=== PATIENT | female | born 1950 | race Caucasian/White ===

== ENCOUNTER 2018-08-22 17:09 | Emergency (ER) | payer MEDICARE, OTHER, SELFPAY ==
[2018-08-22 17:09] VITALS: BP 169/89; PULSE 77; RESP 14; TEMP 36.8; O2SAT 98; BMI 40.2
[2018-08-22 18:31] LABS: Absolute Lymphocyte Count 2.29 X10^3/ul (0.83-4.51); Absolute Neutrophil Count 5.2 X10^3/uL (2.0-7.7); Basophil# 0.05 X10^3/uL; Basophil% 0.6 % (0-1); Eosinophil# 0.12 X10^3/uL; Eosinophils% 1.4 % (0-5); Hematocrit 42.2 % (37-47); Hemoglobin 13.3 g/dl (12.0-15.0); Lymphocyte # 2.29 X10^3/ul (4.0); Lymphocyte % 27.1 % (19-41); Mean Corp Hgb Conc 31.5 g/gl (32-36); Mean Corpuscular Hgb 28.5 pg (27.0-32.0); Mean Corpuscular Volume 90.6 fL (81-99); Mean Platelet Vol. 10.7 fl (6.2-12.0); Monocyte# 0.83 X10^3/uL; Monocyte% 9.8 % (0-10); Neutrophil # 5.16 X10^3/uL (2.7-7.7); Platelet Count 263 K/mm3 (150-450); RBC Distribution Width CV 13.6 % (11.6-14.6); RBC Distribution Width SD 44.5 fl (35.1-43.9); Red Blood Count 4.66 M/mm3 (4.2-5.4); White Blood Count 8.5 K/mm3 (4.4-11.0)
[2018-08-22 18:32] LABS: POSITIVE COUNT NO; POSITIVE DIFFERENTIAL NO; POSITIVE MORPHOLOGY NO
--- NOTE | 2018-08-22 18:35 | CT_ITS ---
STUDY: CT ABDOMEN AND PELVIS WITH CONTRAST REASON FOR EXAM: Female, 68 years old. Right lower quadrant pain. RADIATION DOSAGE (If Supplied By Facility): CTDIvol = ( 13.10 ) mGy, DLP = ( 1062.50 ) mGycm TECHNIQUE: Transaxial images were obtained from the dome of the diaphragm to the symphysis pubis without oral contrast. 100 ml of Isovue 300 contrast was administered. Sagittal and coronal images were reconstructed. Individualized dose optimization techniques were used for this CT. COMPARISON: August 02, 2017. FINDINGS: The visualized lung bases are unremarkable. The visualized portions of the heart are within normal limits. There are too small to characterize low-attenuation foci within the liver. There are surgical clips in the gallbladder fossa consistent with a prior cholecystectomy. Normal spleen. Normal pancreas. Normal bilateral adrenal glands. Normal right kidney. Normal left kidney. Normal visualized stomach. Normal small intestine. Normal colon. The appendix is surgically absent. There is diffuse atherosclerotic calcification of the abdominal aorta, without a demonstrated aneurysm. Normal inferior vena cava. Normal retroperitoneum. Normal urinary bladder. Normal abdominal wall. There are diffuse degenerative changes of the visualized lumbar spine. CT/Abdomen/Pelvis W IV Cont ONLY IMPRESSION: No acute intra-abdominal process. Degenerative changes. Atherosclerosis. Electronically Signed: Dipika Jones MD at 19:06 EDT Tel , Service support ,
[2018-08-22 18:49] LABS: AST(SGOT) 11 U/L (15-37); Alanine Aminotransfer ALT/SGPT 30 U/L (13-56); Albumin, Serum 3.7 g/dL (3.2-5.0); Alkaline Phosphatase 79 U/L (45-117); Anion Gap 5 (5-15); BUN 19 mg/dL (7-18); BUN/Creat Ratio 25.1 RATIO (10-20); Calcium,Total 8.6 mg/dL (8.5-10.1); Chloride 106 mmol/L (98-107); Creatinine, Serum 0.76 mg/dL (0.55-1.02); EST Glomerular Filtration Rate 81 mL/min (>60); Est Glom Filt Rate - Afr Amer 98 mL/min (>60); Estimated Creatinine Clearance 40.63 ml/min; Globulin 3.7 g/dL (2.2-4.2); Glucose 95 mg/dL (74-106); Lipase 94 U/L (73-393); Protein, Total 7.4 g/dL (6.4-8.2); Sodium Level 141 mmol/L (136-145)
[2018-08-22 18:50] LABS: Mucous, Urine 0 SEEN /hpf (<or=2+)
[2018-08-22 18:51] LABS: Color, Urine Yellow (Yellow); Glucose, Dipstick Normal (Normal); Ketone-Dipstick Negative (Negative); Leukocyte Esterase-Dipstick 500 /ul (Negative); Nitrite-Dipstick Negative (Negative); Occult Blood-Urine 25 /ul (Negative); Protein-Dipstick 15 mg/dl (Negative); Urine Bilirubin Dipstick Negative (Negative); Urine Clarity Sl. Cloudy (Clear); Urine Urobilinogen 1 mg/dl (Normal)
[2018-08-22 19:08] LABS: White Blood Cells 25-50 SEEN /hpf (0-5)
[2018-08-22 19:09] LABS: Amorphous Sediment 1+ URATE; Bacteria RARE /hpf (None Seen); Red Blood Cells-Urine 0-5 SEEN /hpf (0-5); Squamous Epithelial Cells - UA 5-10 SEEN /hpf (5-10)
[2018-08-22 20:41] VITALS: BP 149/82; PULSE 65; RESP 18; O2SAT 97
--- NOTE | 2018-08-22 20:41 | RAD_ITS ---
STUDY: X-RAY - RIGHT ELBOW REASON FOR EXAM: Female, 68 years old. Status post injection of IV contrast TECHNIQUE: AP view(s) of the elbow. COMPARISON: None. FINDINGS: Normal visualized humerus, radius and ulna. Normal radiocapitellar and ulnotrochlear articulations. There is intravenous contrast noted disseminated throughout the soft tissues of the lateral aspect of the elbow RAD/Elbow 2 Views IMPRESSION: Scattered IV contrast in the soft tissues of the lateral aspect of the elbow Electronically Signed: Jeremy Monzon MD at 21:15 EDT , Service support ,
--- NOTE | 2018-08-22 20:48 | ED.RN ---
PT C/O RAC BEING SWOLLEN,DENIES PAIN.PRESENTLY NO IV FLUIDS INFUSING, AWARE AND ORDERED X-RAY.
--- NOTE | 2018-08-22 21:03 | ED.DCSUM_ITS ---
- ER Visit Summary Date of Service: 08/22/18 Chief Complaint: Abdominal pain History of Present Illness: The patient is a 68 F who notes 3 weeks of intermittent gradually on setting right lower abdominal pain. Described as stabbing now getting worse particularly today. She states that her urine is more holt than normal. She states she feels bloated. No radiation of the pain. Is worse with sitting. She has a history of kidney stones and fibromyalgia. No fevers. She denies diarrhea or constipation. Patient has had prior appendectomy and complete hysterectomy Physical Examination: Afebrile vital signs stable Gen: Well-nourished well-developed Head: Normocephalic atraumatic Eyes: Perrl EOMI ENT: TMs clear no rhinorrhea moist mucous membranes Neck: Supple no lymphadenopathy no JVD nontender CVS: Regular rate rhythm no murmurs normal S1-S2 Respiratory: No distress clear to auscultation bilaterally chest nontender Abdomen: Soft tender to palpation with guarding in the right lower quadrant nondistended normal bowel sounds no masses Back: Nontender Extremity: Nontender no edema Skin: Normal color no rash Neuro: alert orientated ?3 CN II-XII intact normal strength sensation reflexes gait cerebellar Psych: Normal affect normal mood Test Results: CBC BMP are normal. Urinalysis negative for overt infection. 25- 50 white cells rare bacteria 0-5 red cells 5-10 epithelial cells Emergency Department Course and Treatment: CT the abdomen pelvis did not demonstrate any acute findings. Patient will be discharged home with follow-up return if worsening or concerns. The patient had infiltration of contrast in the right forearm. There was a question whether or not this was contrast versus IV solution. An x-ray was obtained which demonstrates contrast. Hospital contrast extravasation information given. Impression: 1. Acute abdominal pain 2. IV contrast extravasation into right forearm This note was generated with [facility] dictation software. It may contain incorrect words, spelling, and punctuation that were not noted in review of the chart prior to signing ED Disposition - Plan for ED Patient: Disposition: Home or Assisted Living Chief Complaint: Abd Pain Instructions: ED Abdominal Pain Unkn Cause Prescriptions: Magnesium Citrate [Citrate Of Magnesia] 300 ml PO X1 #3 bottle Referrals: Korey Ferguson III, MD [Primary Care Provider] - 2 Days (if still with symptoms )
[2018-08-22 21:37] VITALS: BP 148/60; PULSE 64; RESP 18; O2SAT 98
== END 2018-08-22 21:38 | disposition home or self-care (01) ==
PROVIDERS: Emergency Provider Emergency Medicine; Family Provider Family Medicine; PCP Family Medicine
DX: R10.31 Right lower quadrant pain (principal); M79.89 Other specified soft tissue disorders; M79.7 Fibromyalgia; T50.8X5A Adverse effect of diagnostic agents, initial encounter; Z79.899 Other long term (current) drug therapy
CPT/HCPCS: 73070; 74177; 80053; 81001; 83690; 85025; 99284; Q9967; A4216

== ENCOUNTER 2018-08-25 15:34 | Emergency (ER) | payer MEDICARE, OTHER, SELFPAY ==
[2018-08-25 15:35] VITALS: BP 165/85; PULSE 87; RESP 17; TEMP 36.2; O2SAT 98; BMI 41.5
--- NOTE | 2018-08-25 16:00 | ED.DCSUM_ITS ---
- ER Visit Summary Date of Service: 08/25/18 Chief Complaint: Abdominal pain History of Present Illness: The patient is a 68 F who was seen in this emergency department several days ago for the same. She has had right lower quadrant abdominal pain for 3 weeks. She is having irregular and less frequent bowel movements. She had a CT, laboratory studies, and a urinalysis per hour. She was prescribed magnesium citrate. She took 3 bottles of this since her discharge. She has been having bowel movements but continues to have right lower quadrant pain. No fevers. No other GI symptoms like nausea or vomiting. No diarrhea. No urinary symptoms. She has a history of appendectomy, cholecystectomy, and total hysterectomy. Physical Examination: Blood pressure 165/85. Otherwise vitals unremarkable. Patient is alert and oriented. Sitting and moving comfortably. Heart regular rate and rhythm. Lungs clear. Abdomen is tender in the right lower quadrant diffusely. No guarding or rebound. No flank or CVA tenderness. Skin appears normal. Normal sensation in her legs. Calves soft and supple. Test Results: Recheck laboratory studies and urinalysis pending. Emergency Department Course and Treatment: Patient was treated with fluids and a half dose of Toradol while awaiting results. She has an allergy to morphine and is driving. I reviewed her prior evaluation. Her CT was unremarkable. Her CBC was normal. CMP unremarkable. Lipase normal. Urine did show 5-10 white cells and rare bacteria. I sent a urine culture and we will treat with Keflex. I cannot find an indication to repeat her CT. Patient is following up with her physician tomorrow. I also advised her to follow-up with her GI doctor if she has continued symptoms. She may return at any time if she has new or worsening issues. Treatment Plan: As above Disposition: Discharged Impression: 1. Right lower quadrant abdominal pain This note was generated with [employer] dictation software. It may contain incorrect words, spelling, and punctuation that were not noted in review of the chart prior to signing ED Disposition - Plan for ED Patient: Chief Complaint: Constipation Referrals: Korey Ferguson III, MD [Primary Care Provider] -
[2018-08-25 16:09] VITALS: BP 158/70; PULSE 80; RESP 14; O2SAT 98
[2018-08-25 16:14] LABS: Absolute Lymphocyte Count 1.71 X10^3/ul (0.83-4.51); Absolute Neutrophil Count 7.1 X10^3/uL (2.0-7.7); Basophil# 0.04 X10^3/uL; Basophil% 0.4 % (0-1); Eosinophil# 0.06 X10^3/uL; Eosinophils% 0.6 % (0-5); Hematocrit 44.8 % (37-47); Hemoglobin 14.6 g/dl (12.0-15.0); Lymphocyte # 1.71 X10^3/ul (4.0); Lymphocyte % 17.5 % (19-41); Mean Corp Hgb Conc 32.6 g/gl (32-36); Mean Corpuscular Hgb 29.7 pg (27.0-32.0); Mean Corpuscular Volume 91.1 fL (81-99); Monocyte# 0.83 X10^3/uL; Monocyte% 8.5 % (0-10); Neutrophil % 72.9 % (47-70); Platelet Count 285 K/mm3 (150-450); RBC Distribution Width CV 13.6 % (11.6-14.6); RBC Distribution Width SD 44.8 fl (35.1-43.9); Red Blood Count 4.92 M/mm3 (4.2-5.4); White Blood Count 9.8 K/mm3 (4.4-11.0)
[2018-08-25 16:18] LABS: POSITIVE COUNT NO; POSITIVE DIFFERENTIAL NO; POSITIVE MORPHOLOGY NO
[2018-08-25] MEDS: 0.9% Normal Saline 1,000 ML 1000 ML IV (16:22)
[2018-08-25] MEDS: Ketorolac 30 MG/ML Syringe 15 MG IV (16:22)
[2018-08-25 16:41] LABS: Color, Urine Yellow (Yellow); Glucose, Dipstick Normal (Normal); Ketone-Dipstick Negative (Negative); Leukocyte Esterase-Dipstick Negative /ul (Negative); Nitrite-Dipstick Negative (Negative); Occult Blood-Urine 10 /ul (Negative); Protein-Dipstick Negative (Negative); Specific Gravity, Urine 1.015 (1.002-1.030); Urine Bilirubin Dipstick Negative (Negative); Urine Clarity Clear (Clear); Urine Urobilinogen Normal (Normal)
[2018-08-25 16:44] LABS: AST(SGOT) 13 U/L (15-37); Alanine Aminotransfer ALT/SGPT 30 U/L (13-56); Albumin, Serum 3.6 g/dL (3.2-5.0); Alkaline Phosphatase 78 U/L (45-117); Anion Gap 6 (5-15); BUN 20 mg/dL (7-18); BUN/Creat Ratio 22.2 RATIO (10-20); Calcium,Total 8.5 mg/dL (8.5-10.1); Chloride 110 mmol/L (98-107); EST Glomerular Filtration Rate 66 mL/min (>60); Est Glom Filt Rate - Afr Amer 80 mL/min (>60); Estimated Creatinine Clearance 42.97 ml/min; Globulin 3.6 g/dL (2.2-4.2); Glucose 131 mg/dL (74-106); Lipase 87 U/L (73-393); Potassium 3.5 mmol/L (3.5-5.1); Protein, Total 7.2 g/dL (6.4-8.2); Sodium Level 145 mmol/L (136-145)
[2018-08-25 16:54] LABS: Bacteria RARE /hpf (None Seen); Mucous, Urine 1+ /hpf (<or=2+); Red Blood Cells-Urine 0-5 SEEN /hpf (0-5); Squamous Epithelial Cells - UA 0-5 SEEN /hpf (5-10); White Blood Cells 5-10 SEEN /hpf (0-5)
--- NOTE | 2018-08-25 17:25 | ED.DEP ---
ED Disposition - Plan for ED Patient: Chief Complaint: Constipation Instructions: ED Abdominal Pain Unkn Cause Prescriptions: Cephalexin [Keflex] 500 mg PO Q6 #28 cap Referrals: Korey Ferguson III, MD [Primary Care Provider] -
[2018-08-25] MEDS: Cephalexin 250 MG Capsule 500 MG PO (17:38)
[2018-08-25 17:39] VITALS: BP 150/78; PULSE 85; RESP 14; O2SAT 98
== END 2018-08-25 17:39 | disposition home or self-care (01) ==
LOC: ED 16:21
PROVIDERS: Emergency Provider Emergency Medicine; Family Provider Family Medicine; PCP Family Medicine
DX: R10.31 Right lower quadrant pain (principal); Z90.49 Acquired absence of other specified parts of digestive tract; Z90.710 Acquired absence of both cervix and uterus
CPT/HCPCS: 80053; 81001; 83690; 85025; 87077; 87086; 87088; 87186; 96361; 96374; 99284; J7030

== ENCOUNTER 2018-11-08 18:47 | Emergency (ER) | payer MEDICARE, OTHER, SELFPAY ==
[2018-11-08 18:48] VITALS: BP 153/80; PULSE 80; RESP 22; TEMP 36.8; O2SAT 98; BMI 38.6
--- NOTE | 2018-11-08 19:00 | ED.VISSUMM ---
- ER Visit Summary Date of Service: 11/08/18 Chief Complaint: Fall, right hip pain History of Present Illness: The patient is a 68 F [presents to the emergency department after mechanical fall. The patient was in her normal state of health. She was walking outdoors last night. She slipped when she was trying feed her dogs. She landed with her right hip on a cement paper. She did not strike her head. She denies loss of consciousness. Throughout the day, she had worsening pain in the hip and difficulty ambulating. She has still been able to walk on it. She has not on anticoagulants. Physical Examination: Vital signs reviewed General: Well-nourished, well-developed Head: Normocephalic, atraumatic Eyes: Pupils equal and reactive, extraocular muscles intact Neck, supple, no lymphadenopathy Heart: Regular rate and rhythm Respiratory: No distress, clear bilaterally Abdomen: Soft, nontender, nondistended, no peritoneal signs Back: Nontender Extremities: Nontender, no edema, no cords Skin: Normal color no rash Neuro: Alert and oriented, no focal or lateralizing deficits Test Results: [] Emergency Department Course and Treatment: I did obtain plain films of the patient's hip. There is no evidence of acute fracture or dislocation. Her pain is controlled. She is able to ambulate. At this time, I do feel the patient is safe for discharge. She declined any analgesics for home. She will continue anti-inflammatories. She will return with any worsening symptoms. Treatment Plan: Discharge Disposition: [] Impression: 1. Right hip contusion status post fall This note was generated with [employer] dictation software. It may contain incorrect words, spelling, and punctuation that were not noted in review of the chart prior to signing ED Disposition - Plan for ED Patient: Chief Complaint: Fall Instructions: ED Contusion Hip Referrals: Korey Ferguson III, MD [Primary Care Provider] -
[2018-11-08] MEDS: oxyCODONE 5 MG Tablet PO (19:04)
--- NOTE | 2018-11-08 19:10 | RAD_ITS ---
HISTORY: fall yesterday, right hip pain COMPARISON: CT abdomen pelvis 08/22/18. FINDINGS: # of images incl. paperwork: 3 XR Hip Unilateral with Pelvis when performed; 2-3 Views: Frontal pelvis 2 views right hip. SOFT TISSUES: Unremarkable. No radiopaque foreign body. BONES: No acute fracture or subluxation. No sclerotic or destructive changes observed. JOINTS: Degenerative changes are noted. RAD/HIP, UNI W/ Pelvis 2-3 Views IMPRESSION: Degenerative changes. No acute fracture or dislocation. at 2010 Reported and signed by: Everett Cardenas MD Electronically Signed: Everett Cardenas, at 20:09 EST Tel , Service support ,
[2018-11-08 20:29] VITALS: BP 160/81; PULSE 78; RESP 15; O2SAT 97
--- OUTSIDE RECORDS SUMMARY | 2019-01-13 08:24 | XMS RPT_ITS ---
:1950 Author Organization OHIP Care Team Providers Name Role Phone KOREY FERGUSON III Attending Unavailable CEBUL III, KOREY A Referring Unavailable CEBUL III, KOREY A Referring Unavailable CEBUL III, KOREY A Attending Unavailable CEBUL III, KOREY A Attending Unavailable CEBUL III, KOREY A Referring Unavailable TESTRAKELAURYN Attending Unavailable CEBUL III, KOREY A Referring Unavailable CEBUL III, KOREY A Referring Unavailable CEBUL III, KOREY A Referring Unavailable CEBUL III, KOREY A Referring Unavailable CEBUL III, KOREY A Attending Unavailable CEBUL III, KOREY A Referring Unavailable TESTRAKELAURYN Attending Unavailable TESTRAKE, LAURYN Referring Unavailable CEBUL III, KOREY A Attending Unavailable Cebul III, Korey Primary Care Unavailable Alirio Mcdonald Attending Unavailable Cebul III, Korey Primary Care Unavailable Casey Vargas Attending Unavailable Korey Ferguson III Primary Care Unavailable Casey Ronquillo Attending Unavailable PROBLEMS PROBLEMS DATE TYPE CONDITION / CODE ATTENDING STATUS SOURCE 05/01/2018 Active Hypokalemia / NA Active [facility] E87.6(ICD-10) [facility] [place] Repository 05/01/2018 Active Encounter for NA Active [facility] screening [facility] [place] mammogram for Repository malignant neoplasm of breast / Z12.31(ICD-10) 04/26/2016 Active Hyperlipidemia, NA Active [facility] unspecified / [facility] [place] E78.5(ICD-10) Repository 02/27/2011 Active Impaired fasting NA Active [facility] glucose / [facility] [place] R73.01(ICD-10) Repository 11/27/2017 Active Epigastric pain / NA Active [facility] R10.13(ICD-10) [facility] [place] Repository PROCEDURES PROCEDURES No Procedure Records FoundRESULTS RESULTS EMERGENCY DEPARTMENT Observed: 11/08/2018 Status: F Source: [place] SUMMARY 8:22 PM [facility] REPOSITORY [facility] Medical Records Department [address] [place] [address] Emergency Department Summary 11/08/18 1900 MR#: [id number] Acct: [id number] Name: SHERIDAN ZHENG Rep #: [id number] : 1950 68 From: Alirio Mcdonald MD PCP: Korey Ferguson III, MD Status: REG ER - ER Visit Summary Date of Service: 11/08/18 Chief Complaint: Fall, right hip pain History of Present Illness: The patient is a 68 F [presents to the emergency department after mechanical fall. The patient was in her normal state of health. She was walking outdoors last night. She slipped when she was trying feed her dogs. She landed with her right hip on a cement paper. She did not strike her head. She denies loss of consciousness. Throughout the day, she had worsening pain in the hip and difficulty ambulating. She has still been able to walk on it. She has not on anticoagulants. Physical Examination: Vital signs reviewed General: Well-nourished, well-developed Head: Normocephalic, atraumatic Eyes: Pupils equal and reactive, extraocular muscles intact Neck, supple, no lymphadenopathy Heart: Regular rate and rhythm Respiratory: No distress, clear bilaterally Abdomen: Soft, nontender, nondistended, no peritoneal signs Back: Nontender Extremities: Nontender, no edema, no cords Skin: Normal color no rash Neuro: Alert and oriented, no focal or lateralizing deficits Test Results: [] Emergency Department Course and Treatment: I did obtain plain films of the patient's hip. There is no evidence of acute fracture or dislocation. Her pain is controlled. She is able to ambulate. At this time, I do feel the patient is safe for discharge. She declined any analgesics for home. She will continue anti-inflammatories. She will return with any worsening symptoms. Treatment Plan: Discharge Disposition: [] Impression: 1. Right hip contusion status post fall This note was generated with DAQRIation software. It may contain incorrect words, spelling, and punctuation that were not noted in review of the chart prior to signing ED Disposition - Plan for ED Patient: Chief Complaint: Fall Instructions: ED Contusion Hip Referrals: Korey Ferguson III, MD [Primary Care Provider] - What to do if you have Problems For any increased pain, shortness of breath, bleeding, nausea or vomiting, chest pain, or any unexpected problems, contact your Primary Care Provider. Call Results [facility] ([phone]) or report to the closest Emergency Room. Call 911 if necessary. 11/08/182021 <Electronically signed by Alirio Mcdonald MD> Date Alirio Mcdonald MD Cosigner Signature (If Indicated): Date CC: Korey Ferguson III, MD HIP, UNI W/ PELVIS Observed: 11/08/2018 Status: F Source: [place] 2-3 VIEWS 6:56 PM [facility] REPOSITORY [facility] Imaging Services [place] [address] [address] HIP, UNI W/ Pelvis 2-3 Views MR#: [id number] Acct: [id number] Name: SHERIDAN ZHENG Lamar Rep #: [id number] : 1950 F 68 From: Everett Cardenas MD PCP: Korey Ferguson III, MD Status: REG ER Study: HIP, UNI W/ Pelvis 2-3 Views Date of Exam: 11/08/18 Exam# [id number] Ordering Dr: Alirio Mcdonald MD HISTORY: fall yesterday, right hip pain COMPARISON: CT abdomen pelvis 08/22/18. FINDINGS: # of images incl. paperwork: 3 XR Hip Unilateral with Pelvis when performed; 2-3 Views: Frontal pelvis 2 views right hip. SOFT TISSUES: Unremarkable. No radiopaque foreign body. BONES: No acute fracture or subluxation. No sclerotic or destructive changes observed. JOINTS: Degenerative changes are noted. RAD/HIP, UNI W/ Pelvis 2-3 Views IMPRESSION: Degenerative changes. No acute fracture or dislocation. at 2010 Reported and signed by: Everett Cardenas MD Electronically Signed: Everett Cardenas, at 20:09 EST Tel , Service support , CC: Korey Ferguson III, MD; Alriio Mcdonald MD Agriscience Teacher: Signed PROGRESS Observed: 08/29/2018 Status: COMPLETED Source: [place] 5:18 PM [facility] REPOSITORY HNO ID: [id number] Author: Korey Ferguson III Service: (none) Author Type: Physician Type: Progress Notes Filed: 08/29/2018 7:05 PM Note Text: SUBJECTIVE: This is a 68 year old female that is here today for ER Follow Up. 08/22/18. And 08/25/18. ER records reviewed. 3 wk hx of R side pain, got worse and she went to ER. CBC normal. CT abd/pelvis neg, but the IV contrast dye extravasted in the subcutaneous space R forearm. She was given antibiotic for suspected UTI but she did not have any dysuria. She was referred to urology with normal diagnosis. She continues to have pain R side of abd which she has had without change management the last several months. She has already had previous cholecystectomy, umbilical hernia repair, appendectomy, CALEB, BSO. She has not had any change in appetite or bowel movements. No fever or malaise. 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 Because of her short stature she has to stretch with her right leg to suppress a foot pedal at work repeatedly. She does note that this causes increasing pain in the right lower abdomen and right anterior thigh. PAST MEDICAL HISTORY Diagnosis Date - Backache, unspecified - Hyperlipidemia 02/27/2011 - Hyperlipidemia LDL goal <100 04/26/2016 - Impaired fasting glucose 02/27/2011 - Myalgia and myositis, unspecified - Overactive bladder - Personal history of urinary calculi - Pure hypercholesterolemia - Vestibular neuritis Current Outpatient Prescriptions on File Prior to Visit: DULoxetine (CYMBALTA) 60 mg capsule Take 1 capsule by mouth once daily. Hydrochlorothiazide 12.5 mg capsule Take one tablet every other day as needed for edema albuterol HFA (PROAIR HFA) 90 mcg/actuation inhaler Inhale 2 Puffs as instructed every 6 hours as needed. Flurbiprofen 100 mg tablet Take 1 tablet by mouth twice daily. omeprazole (PRILOSEC) 20 mg capsule Take 1 capsule by mouth daily before breakfast. 1/2 hr before meal. No current facility-administered medications on file prior to visit. FAMILY HISTORY Problem Relation Age of Onset - Stroke Mother - Breast Cancer Mother - Heart Father - Thyroid Maternal Aunt - Hypertension Sister - Heart Paternal Grandmother - Cancer Paternal Grandfather Stomach - Coronary Artery Disease Maternal Grandfather - Breast Cancer Sister - Heart Brother Social History Substance Use Topics - Smoking status: Never Smoker - Smokeless tobacco: Never Used - Alcohol use No BP 139/78 Pulse 70 Resp 18 Wt 94.8 kg (209 lb) BMI 39.49 kg/m? OBJECTIVE: APPEARANCE Well appearing, alert, in no acute distress, well-hydrated, well nourished. and Obese ABDOMEN bowel sounds normoactive, no bruits, soft, non-tender, non-distended, without organomegaly or palpable masses, tenderness in the right lower abdomen without rigidity, rebound, mass. No hepatosplenomegaly. No tenderness in any of the other quadrants. No CVA tenderness bilaterally. No tenderness in the right groin or right anterior thigh muscle. Straight leg raising does not cause any increase in the pain. No tenderness or obvious hernia around the umbilicus. EXTREMITIES no swelling or tenderness of the lower extremities. No evidence of extravasation or tenderness in the right forearm. No increased warmth or erythema of the right forearm. ASSESSMENT: strain right lower abd muscle extravasation of CT scan dye right forearm?resolved without obvious complication PLAN: stretch right lower abdominal muscles 2-3 times/day--remember to keep chin up. Exercises were demonstrated may use tylenol or ibuprofen as needed for pain same other medications flu shot given Hospital records were reviewed JOSH Herrera MD, III MD PROGRESS Observed: 08/29/2018 Status: COMPLETED Source: [place] 5:12 PM [facility] REPOSITORY O ID: [id number] Author: Samira (Patricia) MADDY Ross Service: (none) Author Type: Customer Service Analyst Type: Progress Notes Filed: 08/29/2018 7:05 PM Note Text: 68 year old female here for INACTIVATED INFLUENZA VACCINE. 5278-4886 Season Patient is identified by name and date of : Yes [] CONTRAINDICATIONS color enhanced section Age less than 6 months? No Allergy to eggs, chicken, chicken feathers, or chicken dander? No Allergy to thimerosal (a preservative) or formaldehyde, gelatin? No History of severe reaction to any vaccine component or a previous dose of influenza vaccination? No History of Guillain-Havelock Syndrome within 6 weeks after a previous influenza vaccine? No Patient is not moderately or severely ill? No Current temperature greater or equal to 100.4F? No History of Bone Marrow Transplant prior 6 months or solid organ transplant in the past 3 months ? No History of fainting after a prior injection or medical procedure? No- ? If patient has fainted in the past, the CDC recommends sitting or lying down for 15 minutes after the vaccination. [] VERIFICATION color enhanced section Was the answer Yes for any of the above contraindications? No contraindications present. Acceptable to proceed with vaccine. Patient/guardian agrees the above answers are true to the best of their knowledge? Yes Flu vaccine information sheet given? Yes See immunization activity in [facility] for details of immunizations adminstered today. Patient age: [age] year old For The 7448-2273 Flu Season 6-35 months old: Fluzone 0.25 ml - IM (Preservative Free) 3 years of age: Fluzone 0.5 ml - IM (Preservative Free) 3 years and older: Fluzone 0.5 ml- IM-(with Preservatives) 65+ years old: 2-49 years old Fluzone High-Dose 0.5 ml - IM (Preservative Free) FLUMIST- intranasal REMEMBER: If patient is less than 9 years of age and this is the first vaccine of Influenza to be received in any flu season, they should receive a second dose in one months time. CNOV Observed: 08/29/2018 Status: COMPLETED Source: [place] 4:40 PM [facility] REPOSITORY Office Visit (FAMPWS) SHERIDAN ZHENG ([id number]) 1950 F NFR Date Time Provider Department 08/29/18 4:40 PM [facility] During your visit today, we recorded the following information about you: Pulse Respiration Blood pressure Weight 70/minute 18/minute 139/78 94.8 kg Samira Ross CMA, MA 08/29/2018 7:05 PM Signed 68 year old female here for INACTIVATED INFLUENZA VACCINE. Season Patient is identified by name and date of : Yes [] CONTRAINDICATIONS color enhanced section Age less than 6 months? No Allergy to eggs, chicken, chicken feathers, or chicken dander? No Allergy to thimerosal (a preservative) or formaldehyde, gelatin? No History of severe reaction to any vaccine component or a previous dose of influenza vaccination? No History of Guillain-Havelock Syndrome within 6 weeks after a previous influenza vaccine? No Patient is not moderately or severely ill? No Current temperature greater or equal to 100.4F? No History of Bone Marrow Transplant prior 6 months or solid organ transplant in the past 3 months ? No History of fainting after a prior injection or medical procedure? No- ? If patient has fainted in the past, the CDC recommends sitting or lying down for 15 minutes after the vaccination. [] VERIFICATION color enhanced section Was the answer Yes for any of the above contraindications? No contraindications present. Acceptable to proceed with vaccine. Patient/guardian agrees the above answers are true to the best of their knowledge? Yes Flu vaccine information sheet given? Yes See immunization activity in [facility] for details of immunizations adminstered today. Patient age: [age] year old For The 3808-5010 Flu Season 6-35 months old: Fluzone 0.25 ml - IM (Preservative Free) 3 years of age: Fluzone 0.5 ml - IM (Preservative Free) 3 years and older: Fluzone 0.5 ml- IM-(with Preservatives) 65+ years old: 2-49 years old Fluzone High-Dose 0.5 ml - IM (Preservative Free) FLUMIST- intranasal REMEMBER: If patient is less than 9 years of age and this is the first vaccine of Influenza to be received in any flu season, they should receive a second dose in one months time. Korey Ferguson III MD 08/29/2018 7:05 PM Signed SUBJECTIVE: This is a 68 year old female that is here today for ER Follow Up. 08/22/18. And 08/25/18. ER records reviewed. 3 wk hx of R side pain, got worse and she went to ER. CBC normal. CT abd/pelvis neg, but the IV contrast dye extravasted in the subcutaneous space R forearm. She was given antibiotic for suspected UTI but she did not have any dysuria. She was referred to urology with normal diagnosis. She continues to have pain R side of abd which she has had without change management the last several months. She has already had previous cholecystectomy, umbilical hernia repair, appendectomy, CALEB, BSO. She has not had any change in appetite or bowel movements. No fever or malaise. 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 Because of her short stature she has to stretch with her right leg to suppress a foot pedal at work repeatedly. She does note that this causes increasing pain in the right lower abdomen and right anterior thigh. PAST MEDICAL HISTORY Diagnosis Date - Backache, unspecified - Hyperlipidemia 02/27/2011 - Hyperlipidemia LDL goal <100 04/26/2016 - Impaired fasting glucose 02/27/2011 - Myalgia and myositis, unspecified - Overactive bladder - Personal history of urinary calculi - Pure hypercholesterolemia - Vestibular neuritis Current Outpatient Prescriptions on File Prior to Visit: DULoxetine (CYMBALTA) 60 mg capsule Take 1 capsule by mouth once daily. Hydrochlorothiazide 12.5 mg capsule Take one tablet every other day as needed for edema albuterol HFA (PROAIR HFA) 90 mcg/actuation inhaler Inhale 2 Puffs as instructed every 6 hours as needed. Flurbiprofen 100 mg tablet Take 1 tablet by mouth twice daily. omeprazole (PRILOSEC) 20 mg capsule Take 1 capsule by mouth daily before breakfast. 1/2 hr before meal. No current facility-administered medications on file prior to visit. FAMILY HISTORY Problem Relation Age of Onset - Stroke Mother - Breast Cancer Mother - Heart Father - Thyroid Maternal Aunt - Hypertension Sister - Heart Paternal Grandmother - Cancer Paternal Grandfather Stomach - Coronary Artery Disease Maternal Grandfather - Breast Cancer Sister - Heart Brother Social History Substance Use Topics - Smoking status: Never Smoker - Smokeless tobacco: Never Used - Alcohol use No BP 139/78 Pulse 70 Resp 18 Wt 94.8 kg (209 lb) BMI 39.49 kg/m? OBJECTIVE: APPEARANCE Well appearing, alert, in no acute distress, well- hydrated, well nourished. and Obese ABDOMEN bowel sounds normoactive, no bruits, soft, non-tender, non-distended, without organomegaly or palpable masses, tenderness in the right lower abdomen without rigidity, rebound, mass. No hepatosplenomegaly. No tenderness in any of the other quadrants. No CVA tenderness bilaterally. No tenderness in the right groin or right anterior thigh muscle. Straight leg raising does not cause any increase in the pain. No tenderness or obvious hernia around the umbilicus. EXTREMITIES no swelling or tenderness of the lower extremities. No evidence of extravasation or tenderness in the right forearm. No increased warmth or erythema of the right forearm. ASSESSMENT: strain right lower abd muscle extravasation of CT scan dye right forearm?resolved without obvious complication PLAN: stretch right lower abdominal muscles 2-3 times/day--remember to keep chin up. Exercises were demonstrated may use tylenol or ibuprofen as needed for pain same other medications flu shot given Hospital records were reviewed JOSH Herrera MD, III MD Frank A Cebul, III MD 08/29/2018 5:42 PM Signed PLAN: stretch right lower abdominal muscles 2-3 times/day--remember to keep chin up. may use tylenol or ibuprofen as needed for pain same other medications flu shot given Korey Ferguson III MD Referring Provider: SELF [200] Allergies As of Date: 08/29/2018 Noted Allergy Reaction CODEINE 01/14/2008 Comments: pain in chest LIPITOR (ATORVASTATIN CALCIUM) 07/12/2005 Comments: muscle pain MORPHINE 08/06/2017 12 - Shortness of Breath VICODIN (HYDROCODONE-ACETAMINOPHE*01/24/2008 Comments: pain in chest ZOCOR (SIMVASTATIN) 07/12/2005 Comments: muscle pain Date Reviewed: 08/29/2018 Reviewed by: Samira ([facility]) MADDY Ross - Fully Assessed Reason for Visit: Side abdominal pain [Other] Imm/Inj [58] Cmt: Flu Vaccine Reason For Visit History Recorded Primary Visit Diagnosis:Strain of abdominal muscle, subsequent encounter [S39.011D] Other Visit Diagnosis:Need for vaccination [Z23] Order(s):INFLUENZA SEASONAL HIGH DOSE AGE 65+ [13168XXP] Order #: [id number] Prescriptions as of 08/29/2018 Sig: DULOXETINE 60 MG CAPSULE,RADHA* Take 1 capsule by mouth once * HYDROCHLOROTHIAZIDE 12.5 MG C* Take one tablet every other d* ALBUTEROL SULFATE HFA 90 MCG/* Inhale 2 Puffs as instructed * FLURBIPROFEN 100 MG TABLET Take 1 tablet by mouth twice * OMEPRAZOLE 20 MG CAPSULE,RADHA* Take 1 capsule by mouth daily* Problem List As Of Date 08/29/2018 Noted Resolved Thoracic or lumbosacral neuritis or radiculitis*INVALID FOR*04/26/2016 Unspecified disorder of liver [K76.9] INVALID FOR*04/26/2016 RESTLESS LEGS SYNDROME [G25.81] INVALID FOR* Anxiety state, unspecified [F41.1] INVALID FOR*04/26/2016 Abdominal pain, right lower quadrant [R10.31] INVALID FOR*04/26/2016 Abnormal mammogram, unspecified [R92.8] INVALID FOR*04/26/2016 Fibromyalgia [M79.7] INVALID FOR* Iron Deficiency Anemia due to Chronic Blood Los*INVALID FOR* Lumbago [M54.5] INVALID FOR*04/26/2016 Impaired fasting glucose [R73.01] INVALID FOR* Trochanteric bursitis of right hip [M70.61] INVALID FOR*04/26/2016 Adjustment reaction with anxiety and depression*INVALID FOR* Hyperlipidemia LDL goal <100 [E78.5] INVALID FOR* Family history of ASCVD (arteriosclerotic cardi*INVALID FOR* Lumbar strain [S39.012A] INVALID FOR* Obesity, Class III, BMI 40-49.9 (morbid obesity*INVALID FOR*06/19/2018 Obesity, Class II, BMI 35-39.9 [E66.9] INVALID FOR* Other instructions from your clinician: PLAN: stretch right lower abdominal muscles 2-3 times/day--remember to keep chin up. may use tylenol or ibuprofen as needed for pain same other medications flu shot given Korey Ferguson III MD Encounter Status:Closed by KOREY FERGUSON III, MD on 08/29/18 DISCHARGE INSTRUCTION Observed: 08/25/2018 Status: F Source: [place] 11:37 PM [facility] REPOSITORY [facility] Medical Records Department [address] [place] [address] Discharge Instruction 08/25/18 1725 MR#: [id number] Acct: [id number] Name: MONICASHERIDAN L Rep #: [id number] : 1950 68 From: Casey Ronquillo MD PCP: Korey eFrguson III, MD Status: DEP ER ED Disposition - Plan for ED Patient: Chief Complaint: Constipation Instructions: ED Abdominal Pain Unkn Cause Prescriptions: Cephalexin [Keflex] 500 mg PO Q6 #28 cap Referrals: Korey Ferguson III, MD [Primary Care Provider] - What to do if you have Problems For any increased pain, shortness of breath, bleeding, nausea or vomiting, chest pain, or any unexpected problems, contact your Primary Care Provider. Call [facility] ([phone]) or report to the closest Emergency Room. Call 911 if necessary. 08/25/18 6987 <Electronically signed by Casey Ronquillo MD> Date Casey Ronquillo MD Cosigner Signature (If Indicated): Date CC: Korey Ferguson III, MD EMERGENCY DEPARTMENT Observed: 08/25/2018 Status: F Source: [place] SUMMARY 11:37 PM [facility] REPOSITORY [facility] Medical Records Department [address] [place] [address] Emergency Department Summary 08/25/18 1557 MR#: [id number] Acct: [id number] Name: SHERIDAN ZHENG Rep #: [id number] : 1950 68 From: Casey Ronquillo MD PCP: Korey Ferguson III, MD Status: DEP ER - ER Visit Summary Date of Service: 08/25/18 Chief Complaint: Abdominal pain History of Present Illness: The patient is a 68 F who was seen in this emergency department several days ago for the same. She has had right lower quadrant abdominal pain for 3 weeks. She is having irregular and less frequent bowel movements. She had a CT, laboratory studies, and a urinalysis per hour. She was prescribed magnesium citrate. She took 3 bottles of this since her discharge. She has been having bowel movements but continues to have right lower quadrant pain. No fevers. No other GI symptoms like nausea or vomiting. No diarrhea. No urinary symptoms. She has a history of appendectomy, cholecystectomy, and total hysterectomy. Physical Examination: Blood pressure 165/85. Otherwise vitals unremarkable. Patient is alert and oriented. Sitting and moving comfortably. Heart regular rate and rhythm. Lungs clear. Abdomen is tender in the right lower quadrant diffusely. No guarding or rebound. No flank or CVA tenderness. Skin appears normal. Normal sensation in her legs. Calves soft and supple. Test Results: Recheck laboratory studies and urinalysis pending. Emergency Department Course and Treatment: Patient was treated with fluids and a half dose of Toradol while awaiting results. She has an allergy to morphine and is driving. I reviewed her prior evaluation. Her CT was unremarkable. Her CBC was normal. CMP unremarkable. Lipase normal. Urine did show 5-10 white cells and rare bacteria. I sent a urine culture and we will treat with Keflex. I cannot find an indication to repeat her CT. Patient is following up with her physician tomorrow. I also advised her to follow-up with her GI doctor if she has continued symptoms. She may return at any time if she has new or worsening issues. Treatment Plan: As above Disposition: Discharged Impression: 1. Right lower quadrant abdominal pain This note was generated with (In)Touch [employer] dictation software. It may contain incorrect words, spelling, and punctuation that were not noted in review of the chart prior to signing ED Disposition - Plan for ED Patient: Chief Complaint: Constipation Referrals: Korey Ferguson III, MD [Primary Care Provider] - What to do if you have Problems For any increased pain, shortness of breath, bleeding, nausea or vomiting, chest pain, or any unexpected problems, contact your Primary Care Provider. Call Results [facility] ([phone]) or report to the closest Emergency Room. Call 911 if necessary. 08/25/18 2227 <Electronically signed by Casey Ronquillo MD> Date Casey Ronquillo MD Cosigner Signature (If Indicated): Date CC: Korey Ferguson III, MD URINALYSIS, COMPLETE Collected: 08/25/2018 Status: F Source: [place] 4:15 PM [facility] REPOSITORY Order Comment: Order Date: 08/25/18 Has pt arrived? Y How was Urine Obtained? CLEAN CATCH TYPE CODE TESTS RESULT OUT OF RANGE REFERENCE UNITS LAB L400.3000 Yellow COLOR Normal Yellow LAB L400.3050 Clear Normal CLARITY Clear LAB L400.3200 Normal mg/dl Normal GLUCOSE, UR Normal LAB L400.3300 Negative mg/dL Normal BILIRUBIN URINE Negative LAB L400.3400 Negative mg/dl Normal KETONE UR Negative LAB L400.3465 1.002-1.030 Normal SP.GR. DIPSTX 1.015 LAB L400.3550 5.0 - 8.0 pH UR Normal 6.0 LAB L400.3600 Negative mg/dl PROT Normal DIPSTX Negative LAB L400.3700 Normal mg/dl Normal UROBILI Normal LAB L400.3750 Negative Normal NITRITE UR Negative LAB L400.3780 Negative /ul High 10 OCCULT BLOOD-UR LAB L400.3800 Negative /ul LEUK Normal ESTERASE Negative LAB L400.4050 0-5 /hpf WBC Normal 5-10 SEEN LAB L400.4100 0-5 /hpf Normal RBC-UA 0-5 SEEN LAB L400.4150 5-10 /hpf SQUAM Normal EPI 0-5 SEEN LAB L400.4300 None Seen /hpf Normal BACTERIA RARE LAB L400.4350 <or=2+ /hpf 1+ Normal MUCUS, URINE Performed By: #### L400.0001 #### [facility] [address] [place], [address] Observed: 08/25/2018 Status: F Source: [place] CULTURE, URINE 4:15 PM [facility] REPOSITORY Order Date: 08/25/18 Has pt arrived? Y Urine Culture ORGANISM 1: Escherichia coli [place] Count 11,000-25,000 Escherichia coli: REACTION Amoxacillin/Clavulanic Acid $ 4 S Ampicillin $ 8 S Ampicillin/Sulbactam $ 4 S Cefazolin $ <=4 S Cefepime $ <=1 S Ceftriaxone $ <=1 S Ciprofloxacin $ <=0.25 S ESBL - Ertapenim $$$ <=0.5 S Gentamicin $ <=1 S Imipenem *NF <=0.25 S Levofloxacin $ <=0.12 S Nitrofurantoin $ 64 I Piperacillin/Tazobactam $$ <=4 S Tobramycin $ <=1 S Trimethoprim/Sulfametho $ >=320 R (NF) indicates non-formulary drug at [facility]. Approval by Infectious Disease Specialist required before non-formulary drugs may be ordered and/or dispensed. Performed By: #### M100.0650 #### [facility] [place], [address] CBC W/DIFF, AUTOMATED Collected: 08/25/2018 Status: F Source: [place] 4:05 PM [facility] REPOSITORY TYPE CODE TESTS RESULT OUT OF RANGE REFERENCE UNITS LAB L100.1000 4.4-11.0 K/mm3 Normal WBC 9.8 LAB L100.1200 4.2-5.4 M/mm3 Normal RBC 4.92 LAB L100.1300 12.0-15.0 g/dl Normal HGB 14.6 LAB L100.1400 37-47 % Normal HCT 44.8 LAB L100.1500 81-99 fL Normal MCV 91.1 LAB L100.1600 27.0-32.0 pg Normal MCH 29.7 LAB L100.1700 32-36 g/gl Normal MCHC 32.6 LAB L100.1810 11.6-14.6 % Normal RDW CV 13.6 LAB L100.1820 35.1-43.9 fl High RDW SD 44.8 LAB L100.1900 150-450 K/mm3 Normal PLT 285 LAB L100.2000 6.2-12.0 fl Normal MPV 10.0 LAB L100.2100 47-70 % High NEUT% 72.9 LAB L100.2200 19-41 % Low LY% 17.5 LAB L100.2300 0-10 % Normal MONO% 8.5 LAB L100.2400 0-5 % Normal EO% 0.6 LAB L100.2500 0-1 % Normal BASO% 0.4 LAB L100.2550 0.0-0.9 % Normal IM GRAN % 0.100 Result Comment: IG% - Immature Granulocytes (promyelocytes, myelocytes and metamyelocytes) > 1% indicates that a LEFT SHIFT is Present. LAB L100.2620 2.0-7.7 X10 3/uL Normal Absolute Neut 7.1 LAB L100.2720 0.83-4.51 X10 3/ul Normal Absolute Lymph 1.71 Performed By: #### L100.0100 #### [facility] [address] [place], [address] COMPREHENSIVE METABOLIC Collected: 08/25/2018 Status: F Source: [facility] 4:05 PM [facility] REPOSITORY TYPE CODE TESTS RESULT OUT OF RANGE REFERENCE UNITS LAB L501.0100 74-106 mg/dL High GLU 131 Result Comment: Fasting Glucose result greater than or equal to 126 mg/dL suggests DIABETES MELLITUS per A.D.A. criteria. Please note revised GLUCOSE reference range effective 2017. LAB L501.1000 7-18 mg/dL High BUN 20 LAB L501.1100 0.55-1.02 mg/dL Normal CREAT,SERUM 0.90 Result Comment: The validity of the calculated GFR AND GFRAA in patients over 70 years has not been determined. Clinical correlation is essential. LAB L501.1110 >60 mL/min Normal EST GFR 66 Result Comment: Non- GFR Calc LAB L501.1115 >60 mL/min Normal EST GFR - AA 80 Result Comment: GFR Calc LAB L501.1255 ml/min Normal Estimated CRCL 42.97 LAB L501.1300 10-20 RATIO High BUN/CRE 22.2 LAB L501.1500 6.4-8. g/dL Normal 2 T PROT 7.2 LAB L501.1800 3.2-5. g/dL Normal 0 ALB 3.6 LAB L501.1950 2.2-4. g/dL Normal 2 GLOB 3.6 LAB L501.2000 0.9-2. RATIO Normal 4 A/G 1.0 LAB L501.2200 8.5-10 mg/dL Normal .1 CA 8.5 LAB L501.4100 15-37 U/L Low AST 13 LAB L501.4305 45-117 U/L Normal ALK P 78 LAB L501.4405 13-56 U/L Normal ALT 30 LAB L501.4600 0.20-1 mg/dL Normal .00 T BILI 0.30 LAB L501.5300 136-14 mmol/L Normal 5 NA 145 LAB L501.5600 3.5-5. mmol/L Normal 1 K 3.5 LAB L501.5900 98-107 mmol/L High CL 110 LAB L501.6100 21.0-3 mmol/L Normal 2.0 CO2 29.0 LAB L501.6200 5-15 Normal GAP 6 Performed By: #### L500.4050, L501.2450 #### [facility] [address] [place], [address] LIPASE Collected: 08/25/2018 Status: F Source: [place] 4:05 PM [facility] REPOSITORY TYPE CODE TESTS RESULT OUT OF RANGE REFERENCE UNITS LAB L501.2450 73-393 U/L Normal LIPASE 87 Performed By: #### L500.4050, L501.2450 #### [facility] [address] [place], [address] EMERGENCY DEPARTMENT Observed: 08/23/2018 Status: F Source: [place] SUMMARY 4:25 PM [facility] REPOSITORY [facility] Medical Records Department [address] [place] [address] Emergency Department Summary 08/22/18 2101 MR#: [id number] Acct: [id number] Name: SHERIDAN ZHENG Rep #: [id number] : 1950 68 From: Casey Vargas DO PCP: Korey Ferguson III, MD Status: DEP ER - ER Visit Summary Date of Service: 08/22/18 Chief Complaint: Abdominal pain History of Present Illness: The patient is a 68 F who notes 3 weeks of intermittent gradually on setting right lower abdominal pain. Described as stabbing now getting worse particularly today. She states that her urine is more holt than normal. She states she feels bloated. No radiation of the pain. Is worse with sitting. She has a history of kidney stones and fibromyalgia. No fevers. She denies diarrhea or constipation. Patient has had prior appendectomy and complete hysterectomy Physical Examination: Afebrile vital signs stable Gen: Well-nourished well-developed Head: Normocephalic atraumatic Eyes: Perrl EOMI ENT: TMs clear no rhinorrhea moist mucous membranes Neck: Supple no lymphadenopathy no JVD nontender CVS: Regular rate rhythm no murmurs normal S1-S2 Respiratory: No distress clear to auscultation bilaterally chest nontender Abdomen: Soft tender to palpation with guarding in the right lower quadrant nondistended normal bowel sounds no masses Back: Nontender Extremity: Nontender no edema Skin: Normal color no rash Neuro: alert orientated 3 CN II-XII intact normal strength sensation reflexes gait cerebellar Psych: Normal affect normal mood Test Results: CBC BMP are normal. Urinalysis negative for overt infection. 25-50 white cells rare bacteria 0-5 red cells 5-10 epithelial cells Emergency Department Course and Treatment: CT the abdomen pelvis did not demonstrate any acute findings. Patient will be discharged home with follow-up return if worsening or concerns. The patient had infiltration of contrast in the right forearm. There was a question whether or not this was contrast versus IV solution. An x-ray was obtained which demonstrates contrast. Hospital contrast extravasation information given. Impression: 1. Acute abdominal pain 2. IV contrast extravasation into right forearm This note was generated with (In)Touch Network dictation software. It may contain incorrect words, spelling, and punctuation that were not noted in review of the chart prior to signing ED Disposition - Plan for ED Patient: Disposition: Home or Assisted Living Chief Complaint: Abd Pain Instructions: ED Abdominal Pain Unkn Cause Prescriptions: Magnesium Citrate [Citrate Of Magnesia] 300 ml PO X1 #3 bottle Referrals: Korey Ferguson III, MD [Primary Care Provider] - 2 Days (if still with symptoms ) What to do if you have Problems For any increased pain, shortness of breath, bleeding, nausea or vomiting, chest pain, or any unexpected problems, contact your Primary Care Provider. Call [facility] ([phone]) or report to the closest Emergency Room. Call 911 if necessary. 08/23/18 5655 <Electronically signed by Casey Vargas DO> Date Casey Vargas DO Cosigner Signature (If Indicated): Date CC: Korey Ferguson III, MD ELBOW 2 VIEWS Observed: 08/22/2018 Status: F Source: [place] 8:38 PM [facility] REPOSITORY [facility] Imaging Services [address] [place] [address] Elbow 2 Views MR#: [id number] Acct: [id number] Name: SHERIDAN ZHENG Rep #: [id number] : 1950 F 68 From: Jeremy Monzon MD PCP: Korey Ferguson III, MD Status: REG ER Study: Elbow 2 Views Date of Exam: 08/22/18 Exam# [id number] Ordering Dr: Casey Vargas DO STUDY: X-RAY - RIGHT ELBOW REASON FOR EXAM: Female, 68 years old. Status post injection of IV contrast TECHNIQUE: AP view(s) of the elbow. COMPARISON: None. FINDINGS: Normal visualized humerus, radius and ulna. Normal radiocapitellar and ulnotrochlear articulations. There is intravenous contrast noted disseminated throughout the soft tissues of the lateral aspect of the elbow RAD/Elbow 2 Views IMPRESSION: Scattered IV contrast in the soft tissues of the lateral aspect of the elbow Electronically Signed: Jeremy Monzon MD at 21:15 EDT , Service support , CC: Casey Vargas DO; Korey Ferguson III, MD Agriscience Teacher: Signed CBC W/DIFF, AUTOMATED Collected: 08/22/2018 Status: F Source: [place] 6:16 PM [facility] REPOSITORY TYPE CODE TESTS RESULT OUT OF RANGE REFERENCE UNITS LAB L100.1000 4.4-11.0 K/mm3 Normal WBC 8.5 LAB L100.1200 4.2-5.4 M/mm3 Normal RBC 4.66 LAB L100.1300 12.0-15.0 g/dl Normal HGB 13.3 LAB L100.1400 37-47 % Normal HCT 42.2 LAB L100.1500 81-99 fL Normal MCV 90.6 LAB L100.1600 27.0-32.0 pg Normal MCH 28.5 LAB L100.1700 32-36 g/gl Low MCHC 31.5 LAB L100.1810 11.6-14.6 % Normal RDW CV 13.6 LAB L100.1820 35.1-43.9 fl High RDW SD 44.5 LAB L100.1900 150-450 K/mm3 Normal PLT 263 LAB L100.2000 6.2-12.0 fl Normal MPV 10.7 LAB L100.2100 47-70 % Normal NEUT% 61.0 LAB L100.2200 19-41 % Normal LY% 27.1 LAB L100.2300 0-10 % Normal MONO% 9.8 LAB L100.2400 0-5 % Normal EO% 1.4 LAB L100.2500 0-1 % Normal BASO% 0.6 LAB L100.2550 0.0-0.9 % Normal IM GRAN % 0.100 Result Comment: IG% - Immature Granulocytes (promyelocytes, myelocytes and metamyelocytes) > 1% indicates that a LEFT SHIFT is Present. LAB L100.2620 2.0-7.7 X10 3/uL Normal Absolute Neut 5.2 LAB L100.2720 0.83-4.51 X10 3/ul Normal Absolute Lymph 2.29 Performed By: #### L100.0100 #### [facility] [address] [place], [place], [id number] COMPREHENSIVE METABOLIC Collected: 08/22/2018 Status: F Source: [facility] 6:16 PM [facility] REPOSITORY TYPE CODE TESTS RESULT OUT OF RANGE REFERENCE UNITS LAB L501.0100 74-106 mg/dL Normal GLU 95 Result Comment: Please note revised GLUCOSE reference range effective 2017. LAB L501.1000 7-18 mg/dL High BUN 19 LAB L501.1100 0.55-1.02 mg/dL Normal CREAT,SERUM 0.76 Result Comment: The validity of the calculated GFR AND GFRAA in patients over 70 years has not been determined. Clinical correlation is essential. LAB L501.1110 >60 mL/min Normal EST GFR 81 Result Comment: Non- GFR Calc LAB L501.1115 >60 mL/min Normal EST GFR - AA 98 Result Comment: GFR Calc LAB L501.1255 ml/min Normal Estimated CRCL 40.63 LAB L501.1300 10-20 RATIO High BUN/CRE 25.1 LAB L501.1500 6.4-8. g/dL Normal 2 T PROT 7.4 LAB L501.1800 3.2-5. g/dL Normal 0 ALB 3.7 LAB L501.1950 2.2-4. g/dL Normal 2 GLOB 3.7 LAB L501.2000 0.9-2. RATIO Normal 4 A/G 1.0 LAB L501.2200 8.5-10 mg/dL Normal .1 CA 8.6 LAB L501.4100 15-37 U/L Low AST 11 LAB L501.4305 45-117 U/L Normal ALK P 79 LAB L501.4405 13-56 U/L Normal ALT 30 LAB L501.4600 0.20-1 mg/dL Normal .00 T BILI 0.40 LAB L501.5300 136-14 mmol/L Normal 5 NA 141 LAB L501.5600 3.5-5. mmol/L Normal 1 K 4.0 LAB L501.5900 98-107 mmol/L Normal CL 106 LAB L501.6100 21.0-3 mmol/L Normal 2.0 CO2 30.0 LAB L501.6200 5-15 Normal GAP 5 Performed By: #### L500.4050, L501.2450 #### [facility] [address] [facility] [place], [place], [id number] LIPASE Collected: 08/22/2018 Status: F Source: [place] 6:16 PM [facility] REPOSITORY TYPE CODE TESTS RESULT OUT OF RANGE REFERENCE UNITS LAB L501.2450 73-393 U/L Normal LIPASE 94 Performed By: #### L500.4050, L501.2450 #### [facility] [address] [place], [address] ABDOMEN/PELVIS W IV CONT Observed: 08/22/2018 Status: F Source: [place] ONLY 5:35 PM [facility] REPOSITORY [facility] Imaging Services [address] [place] [address] Abdomen/Pelvis W IV Cont ONLY MR#: [id number] Acct: [id number] Name: SHERIDAN ZHENG Rep #: [id number] : 1950 F 68 From: Dipika Jones MD PCP: Korey Ferguson III, MD Status: DEP ER Study: Abdomen/Pelvis W IV Cont ONLY Date of Exam: 08/22/18 Exam# [id number] Ordering Dr: Casey Vargas DO STUDY: CT ABDOMEN AND PELVIS WITH CONTRAST REASON FOR EXAM: Female, 68 years old. Right lower quadrant pain. RADIATION DOSAGE (If Supplied By Facility): CTDIvol = ( 13.10 ) mGy, DLP = ( 1062.50 ) mGycm TECHNIQUE: Transaxial images were obtained from the dome of the diaphragm to the symphysis pubis without oral contrast. 100 ml of Isovue 300 contrast was administered. Sagittal and coronal images were reconstructed. Individualized dose optimization techniques were used for this CT. COMPARISON: August 02, 2017. FINDINGS: The visualized lung bases are unremarkable. The visualized portions of the heart are within normal limits. There are too small to characterize low-attenuation foci within the liver. There are surgical clips in the gallbladder fossa consistent with a prior cholecystectomy. Normal spleen. Normal pancreas. Normal bilateral adrenal glands. Normal right kidney. Normal left kidney. Normal visualized stomach. Normal small intestine. Normal colon. The appendix is surgically absent. There is diffuse atherosclerotic calcification of the abdominal aorta, without a demonstrated aneurysm. Normal inferior vena cava. Normal retroperitoneum. Normal urinary bladder. Normal abdominal wall. There are diffuse degenerative changes of the visualized lumbar spine. CT/Abdomen/Pelvis W IV Cont ONLY IMPRESSION: No acute intra-abdominal process. Degenerative changes. Atherosclerosis. Electronically Signed: Dipika Jones MD at 19:06 EDT Tel , Service support , CC: Casey Vargas DO; Korey Ferguson III, MD Agriscience Teacher: Signed URINALYSIS, COMPLETE Collected: 08/22/2018 Status: F Source: [place] 5:30 PM [facility] REPOSITORY Order Comment: Has pt arrived? Y How was Urine Obtained? CLEAN CATCH TYPE CODE TESTS RESULT OUT OF RANGE REFERENCE UNITS LAB L400.3000 Yellow COLOR Normal Yellow LAB L400.3050 Clear Normal CLARITY Sl. Cloudy LAB L400.3200 Normal mg/dl Normal GLUCOSE, UR Normal LAB L400.3300 Negative mg/dL Normal BILIRUBIN URINE Negative LAB L400.3400 Negative mg/dl Normal KETONE UR Negative LAB L400.3465 1.002-1.030 Normal SP.GR. DIPSTX 1.020 LAB L400.3550 5.0 - 8.0 pH UR Normal 5.0 LAB L400.3600 Negative mg/dl High PROT 15 DIPSTX LAB L400.3700 Normal mg/dl High 1 UROBILI LAB L400.3750 Negative Normal NITRITE UR Negative LAB L400.3780 Negative /ul High 25 OCCULT BLOOD-UR LAB L400.3800 Negative /ul High LEUK ESTERASE 500 LAB L400.4050 0-5 /hpf WBC Normal 25-50 SEEN LAB L400.4100 0-5 /hpf Normal RBC-UA 0-5 SEEN LAB L400.4150 5-10 /hpf SQUAM Normal EPI 5-10 SEEN LAB L400.4300 None Seen /hpf Normal BACTERIA RARE LAB L400.4350 <or=2+ /hpf 0 Normal MUCUS, URINE SEEN LAB L400.4900 1+ Normal AMORPHOUS URATE Performed By: #### L400.0001 #### [facility] [address] [place], [address] PROGRESS Observed: 08/09/2018 Status: COMPLETED Source: [place] 3:57 PM [facility] REPOSITORY [facility] ID: [id number] Author: Lauryn Recinos Service: (none) Author Type: Physician Type: Progress Notes Filed: 08/11/2018 8:06 PM Note Text: Subjective: Patient presents to clinic c/o painful toenails. They state that the nails are especially painful with shoe gear and pressure. Patient states that nails 1-5 b/l are painful. No other pedal complaints at this time. Patient states no change in medications or medical history since last visit. Objective: Patient presents to clinic ambulating in tennis shoes Vasc: DP and PT pulses are palpable bilateral. CFT is less than 5 seconds bilateral. Skin temperature is warm to cool proximal to distal bilateral. There is no edema or varicosities noted. Neuro: Protective sensation is intact to the foot and toes when tested with the 5.07 SWM bilateral. Vibratory sensation is decreased at the hallux IPJ bilateral. The hallux is downgoing bilateral. Derm: Nails 1-5 b/l are painful, discolored-yellow, thick, crumbly, dystrophic and with subungal debris. Skin is of normal turgor, texture and hair growth is present bilateral. There are no hyperkeratosis, ulcerations, scars, verruca or other lesions noted. Ortho: Muscle strength is 5/5 for all pedal groups tested. Ankle joint DF is full with the knee extended with no pain or crepitus noted. 1st MPJ ROM is full bilateral. Assessment: (B35.1) Onychomycosis (primary encounter diagnosis) (M79.675) Pain in toe of left robert (M79.674) Pain in toe of right foot Plan: Patient was seen and evaluated. Nails 1-5 bilateral were debrided in length and thickness. Patient was instructed on the continued importance of diabetic foot care along with proper diet and keeping their blood sugar under control to prevent complications. Patient is to RTC in 3-4 months. Lauryn Recinos DPM PROGRESS Observed: 08/09/2018 Status: COMPLETED Source: [place] 3:52 PM [facility] REPOSITORY [facility] ID: [id number] Author: Laura Roca MA Service: (none) Author Type: (none) Type: Progress Notes Filed: 08/11/2018 8:06 PM Note Text: AMB ROOMING INTAKE FLOWSHEET DATA Risk Screening Do you have concerns about personal safety or safety in the home?: No Patient is present for DM2 nail care. Patient has no complaints. Laura Roca MA CNOV Observed: 08/09/2018 Status: COMPLETED Source: [place] 3:30 PM [facility] [place] REPOSITORY Office Visit (PODIWS) SHERIDAN ZHENG ([id number]) 1950 F NFR Date Time Provider Department 08/09/18 3:30 PM LAURYN RECINOS During your visit today, we recorded the following information about you: Laura Roca MADDY 08/11/2018 8:06 PM Signed AMB ROOMING INTAKE FLOWSHEET DATA Risk Screening Do you have concerns about personal safety or safety in the home?: No Patient is present for DM2 nail care. Patient has no complaints. Laura Loaizaricardo Recinos DPM 08/11/2018 8:06 PM Signed Subjective: Patient presents to clinic c/o painful toenails. They state that the nails are especially painful with shoe gear and pressure. Patient states that nails 1-5 b/l are painful. No other pedal complaints at this time. Patient states no change in medications or medical history since last visit. Objective: Patient presents to clinic ambulating in tennis shoes Vasc: DP and PT pulses are palpable bilateral. CFT is less than 5 seconds bilateral. Skin temperature is warm to cool proximal to distal bilateral. There is no edema or varicosities noted. Neuro: Protective sensation is intact to the foot and toes when tested with the 5.07 SWM bilateral. Vibratory sensation is decreased at the hallux IPJ bilateral. The hallux is downgoing bilateral. Derm: Nails 1-5 b/l are painful, discolored-yellow, thick, crumbly, dystrophic and with subungal debris. Skin is of normal turgor, texture and hair growth is present bilateral. There are no hyperkeratosis, ulcerations, scars, verruca or other lesions noted. Ortho: Muscle strength is 5/5 for all pedal groups tested. Ankle joint DF is full with the knee extended with no pain or crepitus noted. 1st MPJ ROM is full bilateral. Assessment: (B35.1) Onychomycosis (primary encounter diagnosis) (M79.675) Pain in toe of left robert (M79.674) Pain in toe of right foot Plan: Patient was seen and evaluated. Nails 1-5 bilateral were debrided in length and thickness. Patient was instructed on the continued importance of diabetic foot care along with proper diet and keeping their blood sugar under control to prevent complications. Patient is to RTC in 3-4 months. Lauryn Recinos DPM Referring Provider: LAURYN RECINOS [[id number]] Allergies As of Date: 08/09/2018 Noted Allergy Reaction CODEINE 01/14/2008 Comments: pain in chest LIPITOR (ATORVASTATIN CALCIUM) 07/12/2005 Comments: muscle pain MORPHINE 08/06/2017 12 - Shortness of Breath VICODIN (HYDROCODONE-ACETAMINOPHE*01/24/2008 Comments: pain in chest ZOCOR (SIMVASTATIN) 07/12/2005 Comments: muscle pain Date Reviewed: 08/09/2018 Reviewed by: Laura Roca MA - Fully Assessed Reason for Visit: nail exam [Other] Primary Visit Diagnosis:Onychomycosis [B35.1] Other Visit Diagnoses:Pain in toe of left foot [M79.675] Pain in toe of right foot [M79.674] Prescriptions as of 08/09/2018 Sig: DULOXETINE 60 MG CAPSULE,RADHA* Take 1 capsule by mouth once * HYDROCHLOROTHIAZIDE 12.5 MG C* Take one tablet every other d* ALBUTEROL SULFATE HFA 90 MCG/* Inhale 2 Puffs as instructed * FLURBIPROFEN 100 MG TABLET Take 1 tablet by mouth twice * OMEPRAZOLE 20 MG CAPSULE,RADHA* Take 1 capsule by mouth daily* Problem List As Of Date 08/09/2018 Noted Resolved Thoracic or lumbosacral neuritis or radiculitis*INVALID FOR*04/26/2016 Unspecified disorder of liver [K76.9] INVALID FOR*04/26/2016 RESTLESS LEGS SYNDROME [G25.81] INVALID FOR* Anxiety state, unspecified [F41.1] INVALID FOR*04/26/2016 Abdominal pain, right lower quadrant [R10.31] INVALID FOR*04/26/2016 Abnormal mammogram, unspecified [R92.8] INVALID FOR*04/26/2016 Fibromyalgia [M79.7] INVALID FOR* Iron Deficiency Anemia due to Chronic Blood Los*INVALID FOR* Lumbago [M54.5] INVALID FOR*04/26/2016 Impaired fasting glucose [R73.01] INVALID FOR* Trochanteric bursitis of right hip [M70.61] INVALID FOR*04/26/2016 Adjustment reaction with anxiety and depression*INVALID FOR* Hyperlipidemia LDL goal <100 [E78.5] INVALID FOR* Family history of ASCVD (arteriosclerotic cardi*INVALID FOR* Lumbar strain [S39.012A] INVALID FOR* Obesity, Class III, BMI 40-49.9 (morbid obesity*INVALID FOR*06/19/2018 Obesity, Class II, BMI 35-39.9 [E66.9] INVALID FOR* Disposition: Return in about 3 months (around 11/09/2018) for nail care. Follow-up and Disposition History Recorded Encounter Status:Closed by LAURYN RECINOS DPM on 08/11/18 PROGRESS Observed: 06/19/2018 Status: COMPLETED Source: [place] 4:46 PM [facility] REPOSITORY O ID: [id number] Author: Korey Ferguson III Service: (none) Author Type: Physician Type: Progress Notes Filed: 06/19/2018 7:05 PM Note Text: SUBJECTIVE: This is a 68 year old female that is here today for 1. rash on face, btwn breasts with itching. Started 1 wk ago. No new detergents or other exposures. Worsening wood., with heat. (Works in hot factory). OTC cortisone w/o benefit. Never had previous similar sx. 2. Some pain right lower leg aggravated by working on her feet in the factory. We did discuss that her obesity will make leg pain worse. Long discussion using motivational interviewing to tease out her commitment to making changes in her diet and exercise. She does not seem very committed at all to restrict her intake of ice cream or other sweets. She seems to take it as a joke with lots of laughter regarding her intake of ice cream in particular. She does not get much in way of exercise. She isn't beginning to feel interested in dating again. We tried to use this as incentive to get her to commit to diet and exercise with little obvious success. PAST MEDICAL HISTORY Diagnosis Date - Backache, unspecified - Hyperlipidemia 02/27/2011 - Hyperlipidemia LDL goal <100 04/26/2016 - Impaired fasting glucose 02/27/2011 - Myalgia and myositis, unspecified - Pure hypercholesterolemia - Vestibular neuritis Current Outpatient Prescriptions on File Prior to Visit: DULoxetine (CYMBALTA) 60 mg capsule Take 1 capsule by mouth once daily. Hydrochlorothiazide 12.5 mg capsule Take one tablet every other day as needed for edema albuterol HFA (PROAIR HFA) 90 mcg/actuation inhaler Inhale 2 Puffs as instructed every 6 hours as needed. Flurbiprofen 100 mg tablet Take 1 tablet by mouth twice daily. omeprazole (PRILOSEC) 20 mg capsule Take 1 capsule by mouth daily before breakfast. 1/2 hr before meal. No current facility-administered medications on file prior to visit. FAMILY HISTORY Problem Relation Age of Onset - Stroke Mother - Breast Cancer Mother - Heart Father - Thyroid Maternal Aunt - Hypertension Sister - Heart Paternal Grandmother - Cancer Paternal Grandfather Stomach - Coronary Artery Disease Maternal Grandfather - Breast Cancer Sister - Heart Brother Social History Substance Use Topics - Smoking status: Never Smoker - Smokeless tobacco: Never Used - Alcohol use No BP 126/70 Pulse 85 Resp 16 Wt 92.5 kg (204 lb) BMI 38.55 kg/m? . OBJECTIVE: APPEARANCE Well appearing, alert, in no acute distress, well-hydrated, well nourished. Obese SKIN scattered papules on upper lip, cheeks, btwn breasts. Extremities: Both knees have full flexion and extension without pain. There is no significant joint line tenderness bilaterally. No erythema or warmth of the knees. ASSESSMENT: heat rash obesity--some weight loss PLAN: try talcum powder to keep the skin dry and cool. keep hands off of face healthy weight losing diet and regular exercise eat less sugar, bread, potato, pasta, rice, corn, corn syrup, saturated fats 25 min visit JOSH Herrera MD Observed: 06/19/2018 Status: COMPLETED Source: [place] 4:40 PM [facility] RE[facility]ITORY [facility] SHERIDAN ZHENG ([id number]) 1950 F NFR Date Time Provider Department 06/19/18 4:40 PM KOREY FERGUSON III During your visit today, we recorded the following information about you: Pulse Respiration Blood pressure Weight 85/minute 16/minute 126/70 92.5 kg Korey Ferguson III MD 06/19/2018 7:05 PM Signed SUBJECTIVE: This is a 68 year old female that is here today for 1. rash on face, btwn breasts with itching. Started 1 wk ago. No new detergents or other exposures. Worsening wood., with heat. (Works in hot factory). OTC cortisone w/o benefit. Never had previous similar sx. 2. Some pain right lower leg aggravated by working on her feet in the factory. We did discuss that her obesity will make leg pain worse. Long discussion using motivational interviewing to tease out her commitment to making changes in her diet and exercise. She does not seem very committed at all to restrict her intake of ice cream or other sweets. She seems to take it as a joke with lots of laughter regarding her intake of ice cream in particular. She does not get much in way of exercise. She isn't beginning to feel interested in dating again. We tried to use this as incentive to get her to commit to diet and exercise with little obvious success. PAST MEDICAL HISTORY Diagnosis Date - Backache, unspecified - Hyperlipidemia 02/27/2011 - Hyperlipidemia LDL goal <100 04/26/2016 - Impaired fasting glucose 02/27/2011 - Myalgia and myositis, unspecified - Pure hypercholesterolemia - Vestibular neuritis Current Outpatient Prescriptions on File Prior to Visit: DULoxetine (CYMBALTA) 60 mg capsule Take 1 capsule by mouth once daily. Hydrochlorothiazide 12.5 mg capsule Take one tablet every other day as needed for edema albuterol HFA (PROAIR HFA) 90 mcg/actuation inhaler Inhale 2 Puffs as instructed every 6 hours as needed. Flurbiprofen 100 mg tablet Take 1 tablet by mouth twice daily. omeprazole (PRILOSEC) 20 mg capsule Take 1 capsule by mouth daily before breakfast. 1/2 hr before meal. No current facility-administered medications on file prior to visit. FAMILY HISTORY Problem Relation Age of Onset - Stroke Mother - Breast Cancer Mother - Heart Father - Thyroid Maternal Aunt - Hypertension Sister - Heart Paternal Grandmother - Cancer Paternal Grandfather Stomach - Coronary Artery Disease Maternal Grandfather - Breast Cancer Sister - Heart Brother Social History Substance Use Topics - Smoking status: Never Smoker - Smokeless tobacco: Never Used - Alcohol use No BP 126/70 Pulse 85 Resp 16 Wt 92.5 kg (204 lb) BMI 38.55 kg/m? . OBJECTIVE: APPEARANCE Well appearing, alert, in no acute distress, well- hydrated, well nourished. Obese SKIN scattered papules on upper lip, cheeks, btwn breasts. Extremities: Both knees have full flexion and extension without pain. There is no significant joint line tenderness bilaterally. No erythema or warmth of the knees. ASSESSMENT: heat rash obesity--some weight loss PLAN: try talcum powder to keep the skin dry and cool. keep hands off of face healthy weight losing diet and regular exercise eat less sugar, bread, potato, pasta, rice, corn, corn syrup, saturated fats 25 min visit JOSH Herrera MD, III MD 06/19/2018 5:08 PM Addendum PLAN: try talcum powder to keep the skin dry and cool. keep hands off of face healthy weight losing diet and regular exercise eat less sugar, bread, potato, pasta, rice, corn, corn syrup, saturated fats Korey Ferguson III MD Referring Provider: KOREY FERGUSON III [[id number]] Allergies As of Date: 06/19/2018 Noted Allergy Reaction CODEINE 01/14/2008 Comments: pain in chest LIPITOR (ATORVASTATIN CALCIUM) 07/12/2005 Comments: muscle pain MORPHINE 08/06/2017 12 - Shortness of Breath VICODIN (HYDROCODONE-ACETAMINOPHE*01/24/2008 Comments: pain in chest ZOCOR (SIMVASTATIN) 07/12/2005 Comments: muscle pain Date Reviewed: 06/19/2018 Reviewed by: Samira ([facility]) MADDY Ross - Fully Assessed Reason for Visit: Rash on face, neck AND back [Other] Cmt: x1 week Primary Visit Diagnosis:Heat rash [L74.0] Other Visit Diagnosis:Obesity, Class II, BMI 35-39.9 [E66.9] Prescriptions as of 06/19/2018 Sig: DULOXETINE 60 MG CAPSULE,RADHA* Take 1 capsule by mouth once * HYDROCHLOROTHIAZIDE 12.5 MG C* Take one tablet every other d* ALBUTEROL SULFATE HFA 90 MCG/* Inhale 2 Puffs as instructed * FLURBIPROFEN 100 MG TABLET Take 1 tablet by mouth twice * OMEPRAZOLE 20 MG CAPSULE,RADHA* Take 1 capsule by mouth daily* Problem List As Of Date 06/19/2018 Noted Resolved Thoracic or lumbosacral neuritis or radiculitis*INVALID FOR*04/26/2016 Unspecified disorder of liver [K76.9] INVALID FOR*04/26/2016 RESTLESS LEGS SYNDROME [G25.81] INVALID FOR* Anxiety state, unspecified [F41.1] INVALID FOR*04/26/2016 Abdominal pain, right lower quadrant [R10.31] INVALID FOR*04/26/2016 Abnormal mammogram, unspecified [R92.8] INVALID FOR*04/26/2016 Fibromyalgia [M79.7] INVALID FOR* Iron Deficiency Anemia due to Chronic Blood Los*INVALID FOR* Lumbago [M54.5] INVALID FOR*04/26/2016 Impaired fasting glucose [R73.01] INVALID FOR* Trochanteric bursitis of right hip [M70.61] INVALID FOR*04/26/2016 Adjustment reaction with anxiety and depression*INVALID FOR* Hyperlipidemia LDL goal <100 [E78.5] INVALID FOR* Family history of ASCVD (arteriosclerotic cardi*INVALID FOR* Lumbar strain [S39.012A] INVALID FOR* Obesity, Class III, BMI 40-49.9 (morbid obesity*INVALID FOR*06/19/2018 Obesity, Class II, BMI 35-39.9 [E66.9] INVALID FOR* Other instructions from your clinician: PLAN: try talcum powder to keep the skin dry and cool. keep hands off of face healthy weight losing diet and regular exercise eat less sugar, bread, potato, pasta, rice, corn, corn syrup, saturated fats Korey Ferguson III MD Encounter Status:Closed by KOREY FERGUSON III, MD on 06/19/18 PROGRESS Observed: 05/23/2018 Status: COMPLETED Source: [place] 7:20 PM [facility] REPOSITORY HNO ID: [id number] Author: Korey Ferguson III Service: (none) Author Type: Physician Type: Progress Notes Filed: 05/23/2018 7:20 PM Note Text: Sheridan, Good news--the mammograms reveal benign findings. I recommend annual breast exam and mammograms. Report any abnormal symptoms or lumps to physician. Korey Ferguson III MD CNCO Observed: 05/21/2018 Status: COMPLETED Source: [place] 3:51 PM [facility] RE[facility]IT[facility] HNO ID: [id number] Author: Mammography Coordinator Service: (none) Author Type: Physician Type: Letter Filed: 05/22/2018 11:32 PM Note Text: May 21, 2018 PID: [id number] Sheridan Zheng [address] [place] [address] Dear Ms. Zheng, We are pleased to inform you that the results of your recent breast imaging exam on 05/21/2018 are normal and we recommend that you return to your annual screening Mammography schedule. Your mammogram demonstrates that you have dense breast tissue, which could hide abnormalities. Dense breast tissue, in and of itself, is a relatively common condition. Therefore, this information is not provided to cause undue concern; rather, it is to raise your awareness and promote discussion with your health care provider regarding the presence of dense breast tissue in addition to other risk factors. Early detection of cancer is very important. We also understand recommendations regarding breast cancer screening are controversial. Please discuss with your primary care provider which strategy is best for you and whether a mammogram is right for you. Your imaging studies and report will be kept on file at [facility] as part of your permanent medical record and are available for your continuing care. Thank you for allowing us to help in meeting your health care needs. Sincerely, Dr. Coleman Interpreting Radiologist [facility] (Return to Annual Mammogram schedule) [facility] DIAGNOSTIC RT Observed: 05/21/2018 Status: F Source: [place] 3:43 PM [facility] REPOSITORY * * *Final Report* * * DATE OF EXAM: May 21 2018 3:43PM [facility] 0626 - [facility] DIAG[facility]IC RT / PROCEDURE REASON: call back right breast / abnormal mammogram * * * * Physician Interpretation * * * * RESULT: #[id number] - [facility] DI[facility]NOSTIC RT UNILATERAL RIGHT DIGITAL DIAGNOSTIC MAMMOGRAM WITH CAD: 05/21/2018 HISTORY: Call Back Right Breast / Abnormal Mammogram /priors available for comparison. RESULT: TECHNIQUE: The study was acquired using full field digital technology and interpreted from soft copy. Current study was also evaluated with a Computer Aided Detection (CAD). Comparison is made to exams dated: 05/01/2018 mammogram - [facility], 01/01/2017 mammogram, 11/04/2015 mammogram - [facility], and 09/29/2015 mammogram - [facility]. The tissue of the right breast is heterogeneously dense. This may lower the sensitivity of mammography. Prior asymmetric density is no longer seen in the right breast. There is a stable benign architectural distortion in the right breast anterior depth superior region seen on the mediolateral oblique view only. There is a biopsy clip and a post surgical scar associated with the architectural distortion. No other significant masses or calcifications are seen in the breast. IMPRESSION: BENIGN FINDING There is no mammographic evidence of malignancy. A 1 year screening mammogram is recommended. Mckinley abreu/harry:05/21/2018 15:51:09 Pie Crimping Machine Operator: Minda ANDREWS(Shannan)(Oracio), [facility] letter sent: Return to Annual Mammogram BI-RADS: 2 Benign finding Agriscience Teacher: Harry Transcribe Date/Time: May 21 2018 3:29P Dictated by: MCKINLEY COLEMAN DO This examination was interpreted and the report reviewed and electronically signed by: MCKINLEY COLEMAN DO on May 21 2018 3:51PM EST [id number] PROGRESS Observed: 05/21/2018 Status: COMPLETED Source: [place] 3:29 PM [facility] REPOSITORY [facility] ID: [id number] Author: Julia Andrews Service: (none) Author Type: (none) Type: Progress Notes Filed: 05/21/2018 3:49 PM Note Text: Radiology Service Progress Note PATIENT NAME: Sheridan Zheng DATE OF SERVICE: May 21, 2018 TIME: 3:29 PM PATIENT IDENTITY VERIFICATION COMPLETED USING TWO (2) METHODS: Patient confirmed name verbally and Date of . PATIENT GENDER DATA: Female. status: : No status: NO. PATIENT RELEVANT IMPLANT DATA REVIEWED: Not Applicable RADIOLOGY DEPARTMENT: [facility] Right diag mammogram PERIPHERAL IV DATA: Not applicable SIGNED BY: Julia Andrews May 21, 2018 3:29 PM PROGRESS Observed: 05/01/2018 Status: COMPLETED Source: [place] 5:58 PM [facility] REPOSITORY O ID: [id number] Author: Korey Ferguson III Service: (none) Author Type: Physician Type: Progress Notes Filed: 05/01/2018 5:58 PM Note Text: Sheridan, Katia the radiologist has found an area of asymmetric density in the right upper breast for which additional detailed mammogram is recommended. This area quite likely is benign fibrocystic changes but additional evaluation would be helpful for confirmation. My staff will contact you regarding scheduling. Korey Ferguson III, MD, [facility] Observed: 05/01/2018 Status: COMPLETED Source: [place] 4:10 PM [facility] REPOSITORY HNO ID: [id number] Author: Mammography Coordinator Service: (none) Author Type: Physician Type: Letter Filed: 05/02/2018 11:32 PM Note Text: May 01, 2018 PID: [id number] Sheridan Zheng [address] [place] [address] Dear Ms. Zheng, Your recent breast imaging exam on 05/01/2018 showed a possible finding that requires additional imaging studies for a complete evaluation. Most such findings are probably benign (not cancer). Please call [phone] or [phone]: [phone] to schedule an appointment for your additional imaging if you have not already done so. Your mammogram demonstrates that you have dense breast tissue, which could hide abnormalities. Dense breast tissue, in and of itself, is a relatively common condition. Therefore, this information is not provided to cause undue concern; rather, it is to raise your awareness and promote discussion with your health care provider regarding the presence of dense breast tissue in addition to other risk factors. Your breast images and report will be kept on file here as part of your permanent medical record and are available for your continuing care. Thank you for allowing us to help in meeting your health care needs. Sincerely, Dr. Layton Interpreting Radiologist [facility] (Additional imaging) BASIC METABOLIC PANL Collected: 05/01/2018 Status: F Source: [place] 4:06 PM [facility] REPOSITORY TYPE CODE TESTS RESULT OUT OF REFERENCE UNITS RANGE LAB GLU 74-99 mg/dL High Glucose 130 Result Comment: The [place] Diabetes Association (ADA) provides guidance for cutoff values for fasting glucose and random glucose. The ADA defines fasting as no caloric intake for at least 8 hours. Fas ting plasma glucose results between 100 to 125 mg/dL indicate increased risk for diabetes (prediabetes). Fasting plasma glucose results greater than or equal to 126 mg/dL meet the criteria for diagnosis of diabetes. In the absence of unequivocal hyperglycemia, results should be confirmed by repeat testing. In a patient with classic symptoms of hyperglycemia or hyperglycemic crisis, random plasma glucose results greater than or equal to 200 mg/dL meet the criteria for diagnosis of diabetes. Reference: Standards of Medical Care in Diabetes 2016, [place] Diabetes Association. Diabetes Care. 2016.39(Suppl 1). LAB BUN 7-21 mg/dL BUN 14 LAB CRET 0.58-0.96 mg/dL Creatinine 0.73 LAB NA 136-144 mmol/L Sodium 140 LAB K 3.7-5.1 mmol/L Potassium 3.7 LAB CL 97-105 mmol/L Chloride 103 LAB CO2 22-30 mmol/L CO2 24 LAB AGAP 9-18 mmol/L Anion Gap 13 LAB CA 8.5-10.2 mg/dL Calcium, Total 8.9 LAB GFRAA eGFR- Amer. >60 LAB GFRNAA . eGFR-All Other Races >60 Result Comment: eGFR (Estimated GFR) Units of measure: mL/min/1.73 meters squared eGFR is derived from the reexpressed MDRD Study equation using the following parameters: serum creatinine, age, gender and race. The creatinine assay has been calibrated to be traceable to IDMS. An eGFR <60 mL/min/1.73m2 for >3 months is consistent with chronic kidney disease. Refer to KDOQI guidelines for clinical interpretation. In patients with unstable renal function, e.g. those with acute kidney injury, the eGFR may not accurately reflect actual GFR. Performed By: #### BMP #### [facility] [address] [place], [place] [address] [facility] SCREENING Observed: 05/01/2018 Status: F Source: [place] 4:01 PM [facility] REPOSITORY * * *Final Report* * * DATE OF EXAM: May 01 2018 4:01PM [facility] 0581 - [facility] SCREENING / PROCEDURE REASON: Encounter for screening mammogram for malignant neoplasm of breast * * * * Physician Interpretation * * * * RESULT: #[id number] - SUE SCREENING BILATERAL DIGITAL SCREENING MAMMOGRAM WITH CAD: 05/01/2018 HISTORY: Encounter For Screening Mammogram For Malignant Neoplasm Of Breast /priors available for comparison. RESULT: TECHNIQUE: The study was acquired using full field digital technology and interpreted from soft copy. Current study was also evaluated with a Computer Aided Detection (CAD). Comparison is made to exams dated: 01/01/2017 mammogram, 11/04/2015 mammogram - [facility], and 09/29/2015 mammogram - [facility]. The tissue of both breasts is heterogeneously dense. This may lower the sensitivity of mammography. There is a biopsy clip in the right breast. There is a focal asymmetry in the right breast upper inner aspect middle depth. No other significant masses, calcifications, or other findings are seen in either breast. IMPRESSION: INCOMPLETE: NEEDS ADDITIONAL IMAGING EVALUATION The focal asymmetry in the right breast is indeterminate. Additional views are recommended. Karthik rausch/harry:05/01/2018 16:10:13 Pie Crimping Machine Operator: Lacie ANDREWS (R)(Oracio), [facility] letter sent: Additional Imaging Needed Mammogram BI-RADS: 0 Incomplete: needs additional imaging evaluation If this report indicates you need additional imaging, and it has NOT yet been performed, please call , to schedule. We sincerely thank you for choosing the [facility] for your breast imaging needs. Agriscience Teacher: Harry Transcribe Date/Time: May 01 2018 3:45P Dictated by: KARTHIK LAYTON MD This examination was interpreted and the report reviewed and electronically signed by: KARTHIK LAYTON MD on May 01 2018 4:10PM EST [id number] PROCEDURE Observed: 05/01/2018 Status: COMPLETED Source: [place] 3:44 PM [facility] REPOSITORY HNO ID: [id number] Author: Lacie IrelandKenyatta Mao Service: (none) Author Type: Donor Specialist Type: Procedures Filed: 05/01/2018 3:44 PM Note Text: Radiology Service Progress Note PATIENT NAME: Sheridan Zheng DATE OF SERVICE: May 01, 2018 TIME: 3:44 PM PATIENT IDENTITY VERIFICATION COMPLETED USING TWO (2) METHODS: Patient confirmed name verbally and Date of . PATIENT GENDER DATA: Female. status: : No status: NO. PATIENT RELEVANT IMPLANT DATA REVIEWED: Not Applicable RADIOLOGY DEPARTMENT: [facility] DATA: Not applicable SIGNED BY: RT Kimber May 01, 2018 3:44 PM PROGRESS Observed: 05/01/2018 Status: COMPLETED Source: [place] 2:44 PM [facility] REPOSITORY [facility] ID: [id number] Author: Lauryn Recinos Service: (none) Author Type: Physician Type: Progress Notes Filed: 05/01/2018 3:20 PM Note Text: ? Lauryn Recinos DPM Department of Podiatry [address] [place] [id number] Dept: [phone] Dept 05/01/2018 Initial Podiatric Office Visit: Consultation requested by Dr. ferguson for an opinion regarding toenail issues. My final recommendations will be communicated back to the requesting physician by way of shared Medical record or letter to requesting physician via US mail. HPI: Sheridan Zheng is a 68 year old female. Patient presents with:onychomycosis. She states it is difficult for her to trim her toenails because they are thick. Toenails of bilateral hallux are the worst. The toenail of the L hallux fell off on its own. No drainage, no signs of infection. She states it feels like she has a new nail growing underneath her right hallux. Pt requesting toenail debridement today. She states the toenails have been changing color over the past year and she feels it is due to her job hitting a pedal daily. She is not a diabetic. PCP: Korey Ferguson III MD PAST MEDICAL HISTORY Diagnosis Date - Backache, unspecified - Hyperlipidemia 02/27/2011 - Hyperlipidemia LDL goal <100 04/26/2016 - Impaired fasting glucose 02/27/2011 - Myalgia and myositis, unspecified - Pure hypercholesterolemia - Vestibular neuritis Current Outpatient Prescriptions: DULoxetine (CYMBALTA) 60 mg capsule Take 1 capsule by mouth once daily. Hydrochlorothiazide 12.5 mg capsule Take one tablet every other day as needed for edema albuterol HFA (PROAIR HFA) 90 mcg/actuation inhaler Inhale 2 Puffs as instructed every 6 hours as needed. Flurbiprofen 100 mg tablet Take 1 tablet by mouth twice daily. omeprazole (PRILOSEC) 20 mg capsule Take 1 capsule by mouth daily before breakfast. 1/2 hr before meal. No current facility-administered medications for this visit. ALLERGIES Allergen Reactions - Codeine pain in chest - Lipitor [Atorvastat* muscle pain - Morphine Shortness of Breath - Vicodin [Hydrocodon* pain in chest - Zocor [Simvastatin] muscle pain PAST SURGICAL HISTORY Procedure Laterality Date - APPENDECTOMY - COLONOSCOP W/ OR W/O BRSH SPEC 10/18/15 Colonoscopy - COLONS W/REM POLYP HT BX 11/23/03 Hyperplastic polyp, otherwise unremarkable-repeat in - EGD W/O BRSH SPECIMEN W/BX 11/23/03 Gastritis - PAST SURGICAL HISTORY OF Left foot surgery - REMOVAL GALLBLADDER Cholecystectomy - STEREO LOC FOR CORE BRST BX RT 02-13-07 right - TOTAL ABDOM HYSTERECTOMY 02/1984 Hysterectomy, CALEB/BSO - uterine fibroids,endometriosis FAMILY HISTORY Problem Relation Age of Onset - Stroke Mother - Breast Cancer Mother - Heart Father - Thyroid Maternal Aunt - Hypertension Sister - Heart Paternal Grandmother - Cancer Paternal Grandfather Stomach - Coronary Artery Disease Maternal Grandfather - Breast Cancer Sister - Heart Brother Social History Marital status: Spouse name: Kristopher Years of education: Number of children: 2 Occupational History Occupation Employer Comment Medical Records Cl* [employer] Social History Main Topics Smoking status: Never Smoker Smokeless tobacco: Never Used Alcohol use: No Drug use: No Sexual activity: Yes Partners with: Male Comment: Pt has had a hysterectomy REVIEW OF SYSTEMS: CONSTITUTIONAL: No fevers, chills, nightsweats, unintended weight loss HEENT: Denies frequent or severe heaches, nasal congestion/sinus symptoms, problematic allergy problems. EYES: No diplopia or blurry vision. CARDIOVASCULAR: No chest pain, dyspnea, palpitations, orthopnea, PND, ankle edema. PULM: No dyspnea, unexplained cough. GI: No dysphagia/odynophagia, problematic reflux, constipation, diarrhea, changes in stool habits, hematochezia, melena. : No new urinary complaints, including dysuria, gross hematuria or pyuria. NEURO: No new balance problems, peripheral weakness/paresthesias or numbness of concern. MUSC-SKEL: No new joint pain, swelling, or erythema. PSY: No concerns regarding depression, anxiety or panic. INTEGUMENTARY: Painful toenails Physical Exam: Constitutional: Pt is a well developed 68 year old female who is alert, oriented and cooperative Eyes: Following during examination. No redness or drainage. Respiratory: RR normal and nonlabored. Even breathing. No evidence of distress or shortness of breath. Psychology: Patient is engaged during conversation. Normal affect and mood. Does not appear depressed or anxious during encounter. Vascular: Dorsalis pedis and posterior tibial pulses palpable as b/l Capillary Fill time < 5 seconds to digits 1-5 b/l Skin temperature warm to warm proximal to distal b/l Hair growth present to digits Neurological: intact light touch/epicritic sensation Dermatological: Nails 1-5 b/l appear thick, discolored, painful. Left hallux toenail is partially avulsed. Webspaces clean and dry 1-4 b/l. Skin appears well hydrated and supple. good color, texture, turgor. Callosities absent..Open lesions absent. Wound: Not present. Musculoskeletal/Orthopaedic: Patient has pain to palpation of toenails Foot type is neutral structurally AJ ROM is full with knee extended and flexed 1st MPJ is full when loaded and no pain or crepitus are noted with ROM. MTJ, STJ are full and free of pain and crepitus. +5/5 muscle strength dorsiflexion, plantarflexion, inversion, eversion b/l ASSESSMENT: (B35.1) Onychomycosis (primary encounter diagnosis) (M79.675) Pain in toe of left robert (M79.674) Pain in toe of right foot PLAN: Patient was seen and evaluated. Nails 1-5 bilateral were debrided in length and thickness. We discussed the possible etiologies of discolored, dystrophic, and thickened nails including fungus, yeast, mold as well as in some instances, prior trauma, or mechanical causes such as repetitive microtrauma in shoe gear. We discussed topical medication for discolored toenails which has very low success but no major side effects. We discussed oral medication. Patient will need hepatic testing prior to use. Patient informed of risks associated with Lamisil. We discussed removal of toenails. Patient would like to proceed with proceed with nail debridement. She may consider matrixectomy in future. f/u in 3 months for nail care Lauryn Recinos DPM CNOV Observed: 05/01/2018 Status: COMPLETED Source: [place] 2:25 PM [facility] REPOSITORY Office Visit (PODIWS) RONY ZHENGSwati Newton ([id number]) 1950 F NFR Date Time Provider Department 05/01/18 2:25 PM LAURYN RECINOS During your visit today, we recorded the following information about you: Lauryn Recinos DPM 05/01/2018 3:20 PM Signed ? Lauryn Recinos DPM Department of Podiatry [address] [facility] [address] Dept: [phone] Dept 05/01/2018 Initial Podiatric Office Visit: Consultation requested by Dr. ferguson for an opinion regarding toenail issues. My final recommendations will be communicated back to the requesting physician by way of shared Medical record or letter to requesting physician via US mail. HPI: Sheridan Zheng is a 68 year old female. Patient presents with:onychomycosis. She states it is difficult for her to trim her toenails because they are thick. Toenails of bilateral hallux are the worst. The toenail of the L hallux fell off on its own. No drainage, no signs of infection. She states it feels like she has a new nail growing underneath her right hallux. Pt requesting toenail debridement today. She states the toenails have been changing color over the past year and she feels it is due to her job hitting a pedal daily. She is not a diabetic. PCP: Korey Ferguson III MD PAST MEDICAL HISTORY Diagnosis Date - Backache, unspecified - Hyperlipidemia 02/27/2011 - Hyperlipidemia LDL goal <100 04/26/2016 - Impaired fasting glucose 02/27/2011 - Myalgia and myositis, unspecified - Pure hypercholesterolemia - Vestibular neuritis Current Outpatient Prescriptions: DULoxetine (CYMBALTA) 60 mg capsule Take 1 capsule by mouth once daily. Hydrochlorothiazide 12.5 mg capsule Take one tablet every other day as needed for edema albuterol HFA (PROAIR HFA) 90 mcg/actuation inhaler Inhale 2 Puffs as instructed every 6 hours as needed. Flurbiprofen 100 mg tablet Take 1 tablet by mouth twice daily. omeprazole (PRILOSEC) 20 mg capsule Take 1 capsule by mouth daily before breakfast. 1/2 hr before meal. No current facility-administered medications for this visit. ALLERGIES Allergen Reactions - Codeine pain in chest - Lipitor [Atorvastat* muscle pain - Morphine Shortness of Breath - Vicodin [Hydrocodon* pain in chest - Zocor [Simvastatin] muscle pain PAST SURGICAL HISTORY Procedure Laterality Date - APPENDECTOMY - COLONOSCOP W/ OR W/O BRSH SPEC 10/18/15 Colonoscopy - COLONS W/REM POLYP HT BX 11/23/03 Hyperplastic polyp, otherwise unremarkable-repeat in - EGD W/O BRSH SPECIMEN W/BX 11/23/03 Gastritis - PAST SURGICAL HISTORY OF Left foot surgery - REMOVAL GALLBLADDER Cholecystectomy - STEREO LOC FOR CORE BRST BX RT 02-13-07 right - TOTAL ABDOM HYSTERECTOMY 02/1984 Hysterectomy, CALEB/BSO - uterine fibroids,endometriosis FAMILY HISTORY Problem Relation Age of Onset - Stroke Mother - Breast Cancer Mother - Heart Father - Thyroid Maternal Aunt - Hypertension Sister - Heart Paternal Grandmother - Cancer Paternal Grandfather Stomach - Coronary Artery Disease Maternal Grandfather - Breast Cancer Sister - Heart Brother Social History Marital status: Spouse name: Kristopher Years of education: Number of children: 2 Occupational History 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 EYES: No diplopia or blurry vision. CARDIOVASCULAR: No chest pain, dyspnea, palpitations, orthopnea, PND, ankle edema. PULM: No dyspnea, unexplained cough. GI: No dysphagia/odynophagia, problematic reflux, constipation, diarrhea, changes in stool habits, hematochezia, melena. : No new urinary complaints, including dysuria, gross hematuria or pyuria. NEURO: No new balance problems, peripheral weakness/paresthesias or numbness of concern. MUSC-SKEL: No new joint pain, swelling, or erythema. PSY: No concerns regarding depression, anxiety or panic. INTEGUMENTARY: Painful toenails Physical Exam: Constitutional: Pt is a well developed 68 year old female who is alert, oriented and cooperative Eyes: Following during examination. No redness or drainage. Respiratory: RR normal and nonlabored. Even breathing. No evidence of distress or shortness of breath. Psychology: Patient is engaged during conversation. Normal affect and mood. Does not appear depressed or anxious during encounter. Vascular: Dorsalis pedis and posterior tibial pulses palpable as b/l Capillary Fill time < 5 seconds to digits 1-5 b/l Skin temperature warm to warm proximal to distal b/l Hair growth present to digits Neurological: intact light touch/epicritic sensation Dermatological: Nails 1-5 b/l appear thick, discolored, painful. Left hallux toenail is partially avulsed. Webspaces clean and dry 1-4 b/l. Skin appears well hydrated and supple. good color, texture, turgor. Callosities absent..Open lesions absent. Wound: Not present. Musculoskeletal/Orthopaedic: Patient has pain to palpation of toenails Foot type is neutral structurally AJ ROM is full with knee extended and flexed 1st MPJ is full when loaded and no pain or crepitus are noted with ROM. MTJ, STJ are full and free of pain and crepitus. +5/5 muscle strength dorsiflexion, plantarflexion, inversion, eversion b/l ASSESSMENT: (B35.1) Onychomycosis (primary encounter diagnosis) (M79.675) Pain in toe of left robert (M79.674) Pain in toe of right foot PLAN: Patient was seen and evaluated. Nails 1-5 bilateral were debrided in length and thickness. We discussed the possible etiologies of discolored, dystrophic, and thickened nails including fungus, yeast, mold as well as in some instances, prior trauma, or mechanical causes such as repetitive microtrauma in shoe gear. We discussed topical medication for discolored toenails which has very low success but no major side effects. We discussed oral medication. Patient will need hepatic testing prior to use. Patient informed of risks associated with Lamisil. We discussed removal of toenails. Patient would like to proceed with proceed with nail debridement. She may consider matrixectomy in future. f/u in 3 months for nail care Lauryn Recinos DPM Referring Provider: KOREY FERGUSON III [[id number]] Allergies As of Date: 05/01/2018 Noted Allergy Reaction CODEINE 01/14/2008 Comments: pain in chest LIPITOR (ATORVASTATIN CALCIUM) 07/12/2005 Comments: muscle pain MORPHINE 08/06/2017 12 - Shortness of Breath VICODIN (HYDROCODONE-ACETAMINOPHE*01/24/2008 Comments: pain in chest ZOCOR (SIMVASTATIN) 07/12/2005 Comments: muscle pain Date Reviewed: 05/01/2018 Reviewed by: Kelly Vanegas RN - Fully Assessed Reason for Visit: New Patient [172] Primary Visit Diagnosis:Onychomycosis [B35.1] Other Visit Diagnoses:Pain in toe of left foot [M79.675] Pain in toe of right foot [M79.674] Prescriptions as of 05/01/2018 Sig: DULOXETINE 60 MG CAPSULE,RADHA* Take 1 capsule by mouth once * HYDROCHLOROTHIAZIDE 12.5 MG C* Take one tablet every other d* ALBUTEROL SULFATE HFA 90 MCG/* Inhale 2 Puffs as instructed * FLURBIPROFEN 100 MG TABLET Take 1 tablet by mouth twice * OMEPRAZOLE 20 MG CAPSULE,RADHA* Take 1 capsule by mouth daily* Problem List As Of Date 05/01/2018 Noted Resolved Thoracic or lumbosacral neuritis or radiculitis*INVALID FOR*04/26/2016 Unspecified disorder of liver [K76.9] INVALID FOR*04/26/2016 RESTLESS LEGS SYNDROME [G25.81] INVALID FOR* Anxiety state, unspecified [F41.1] INVALID FOR*04/26/2016 Abdominal pain, right lower quadrant [R10.31] INVALID FOR*04/26/2016 Abnormal mammogram, unspecified [R92.8] INVALID FOR*04/26/2016 Fibromyalgia [M79.7] INVALID FOR* Iron Deficiency Anemia due to Chronic Blood Los*INVALID FOR* Lumbago [M54.5] INVALID FOR*04/26/2016 Impaired fasting glucose [R73.01] INVALID FOR* Trochanteric bursitis of right hip [M70.61] INVALID FOR*04/26/2016 Adjustment reaction with anxiety and depression*INVALID FOR* Hyperlipidemia LDL goal <100 [E78.5] INVALID FOR* Family history of ASCVD (arteriosclerotic cardi*INVALID FOR* Lumbar strain [S39.012A] INVALID FOR* Obesity, Class III, BMI 40-49.9 (morbid obesity*INVALID FOR* Disposition: Return in about 3 months (around 08/01/2018) for nail care. Follow-up and Disposition History Recorded Encounter Status:Closed by LAURYN RECINOS DPM on 05/01/18 PROGRESS Observed: 04/04/2018 Status: COMPLETED Source: [place] 5:21 PM [facility] REPOSITORY HNO ID: [id number] Author: Korey Ferguson III Service: (none) Author Type: Physician Type: Progress Notes Filed: 04/04/2018 6:48 PM Note Text: SUBJECTIVE: This is a 68 year old female that is here today for Chronic Medical Conditions and Acute Complaints. 1. f/u of depression: feeling more aliveon the cymbalta 60mg daily 2. L index finger cut in machine at work when she reached into the machine in February. Last Tdap 11/23/16. She cleansed the wound but did not go to seek medical attention. Now she notes some numbness dorsum L index finger. She keeps 2 bandaids on the wound while at work or when working in the dirt. 3. obesity--some weight loss 2 lbs PAST MEDICAL HISTORY Diagnosis Date - Backache, unspecified - Hyperlipidemia 02/27/2011 - Hyperlipidemia LDL goal <100 04/26/2016 - Impaired fasting glucose 02/27/2011 - Myalgia and myositis, unspecified - Pure hypercholesterolemia - Vestibular neuritis Current Outpatient Prescriptions on File Prior to Visit: DULoxetine (CYMBALTA) 60 mg capsule Take 1 capsule by mouth once daily. Hydrochlorothiazide 12.5 mg capsule Take one tablet every other day as needed for edema albuterol HFA (PROAIR HFA) 90 mcg/actuation inhaler Inhale 2 Puffs as instructed every 6 hours as needed. Flurbiprofen 100 mg tablet Take 1 tablet by mouth twice daily. omeprazole (PRILOSEC) 20 mg capsule Take 1 capsule by mouth daily before breakfast. 1/2 hr before meal. No current facility-administered medications on file prior to visit. FAMILY HISTORY Problem Relation Age of Onset - Stroke Mother - Breast Cancer Mother - Heart Father - Thyroid Maternal Aunt - Hypertension Sister - Heart Paternal Grandmother - Cancer Paternal Grandfather Stomach - Coronary Artery Disease Maternal Grandfather - Breast Cancer Sister - Heart Brother Social History Substance Use Topics - Smoking status: Never Smoker - Smokeless tobacco: Never Used - Alcohol use No BP 146/81 Pulse 81 Resp 16 Wt 97.5 kg (215 lb) BMI 40.62 kg/m? OBJECTIVE: APPEARANCE Well appearing, alert, in no acute distress, well-hydrated, well nourished. EXTREMITIES superficial laceration L index finger radial aspect L PIP joint, no surrounding erythema or dehiscence with finger flexion. Small area of decreased monofilament sensation distal to PIP joint . No swelling or warmth of PIP joint ASSESSMENT: depression--well controlled laceration L index finger--healing obesity--some weight loss PLAN: continue cymbalta 60mg daily continue to keep wound clean and covered until healed same other meds return to office 6 mos and as needed JOSH Herrera MD, III MD CNOV Observed: 04/04/2018 Status: COMPLETED Source: [place] 4:20 PM [facility] REPOSITORY [facility] SHERIDAN ZHENG ([id number]) 1950 F NFR Date Time Provider Department 04/04/18 4:20 PM KOREY FERGUSON III During your visit today, we recorded the following information about you: Pulse Respiration Blood pressure Weight 81/minute 16/minute 146/81 97.5 kg Korey Ferguson III MD 04/04/2018 6:48 PM Signed SUBJECTIVE: This is a 68 year old female that is here today for Chronic Medical Conditions and Acute Complaints. 1. f/u of depression: feeling more aliveon the cymbalta 60mg daily 2. L index finger cut in machine at work when she reached into the machine in February. Last Tdap 11/23/16. She cleansed the wound but did not go to seek medical attention. Now she notes some numbness dorsum L index finger. She keeps 2 bandaids on the wound while at work or when working in the dirt. 3. obesity--some weight loss 2 lbs PAST MEDICAL HISTORY Diagnosis Date - Backache, unspecified - Hyperlipidemia 02/27/2011 - Hyperlipidemia LDL goal <100 04/26/2016 - Impaired fasting glucose 02/27/2011 - Myalgia and myositis, unspecified - Pure hypercholesterolemia - Vestibular neuritis Current Outpatient Prescriptions on File Prior to Visit: DULoxetine (CYMBALTA) 60 mg capsule Take 1 capsule by mouth once daily. Hydrochlorothiazide 12.5 mg capsule Take one tablet every other day as needed for edema albuterol HFA (PROAIR HFA) 90 mcg/actuation inhaler Inhale 2 Puffs as instructed every 6 hours as needed. Flurbiprofen 100 mg tablet Take 1 tablet by mouth twice daily. omeprazole (PRILOSEC) 20 mg capsule Take 1 capsule by mouth daily before breakfast. 1/2 hr before meal. No current facility-administered medications on file prior to visit. FAMILY HISTORY Problem Relation Age of Onset - Stroke Mother - Breast Cancer Mother - Heart Father - Thyroid Maternal Aunt - Hypertension Sister - Heart Paternal Grandmother - Cancer Paternal Grandfather Stomach - Coronary Artery Disease Maternal Grandfather - Breast Cancer Sister - Heart Brother Social History Substance Use Topics - Smoking status: Never Smoker - Smokeless tobacco: Never Used - Alcohol use No BP 146/81 Pulse 81 Resp 16 Wt 97.5 kg (215 lb) BMI 40.62 kg/m? OBJECTIVE: APPEARANCE Well appearing, alert, in no acute distress, well- hydrated, well nourished. EXTREMITIES superficial laceration L index finger radial aspect L PIP joint, no surrounding erythema or dehiscence with finger flexion. Small area of decreased monofilament sensation distal to PIP joint . No swelling or warmth of PIP joint ASSESSMENT: depression--well controlled laceration L index finger--healing obesity--some weight loss PLAN: continue cymbalta 60mg daily continue to keep wound clean and covered until healed same other meds return to office 6 mos and as needed JOSH Herrera MD, III MD Frank A Cebul, III MD 04/04/2018 5:36 PM Signed PLAN: continue cymbalta 60mg daily continue to keep wound clean and covered until healed same other meds return to office 6 mos and as needed Korey Ferguson III MD Referring Provider: KOREY FERGUSON III [[id number]] Allergies As of Date: 04/04/2018 Noted Allergy Reaction CODEINE 01/14/2008 Comments: pain in chest LIPITOR (ATORVASTATIN CALCIUM) 07/12/2005 Comments: muscle pain MORPHINE 08/06/2017 12 - Shortness of Breath VICODIN (HYDROCODONE-ACETAMINOPHE*01/24/2008 Comments: pain in chest ZOCOR (SIMVASTATIN) 07/12/2005 Comments: muscle pain Date Reviewed: 04/04/2018 Reviewed by: Samira ([facility]) MADDY Ross - Fully Assessed Reason for Visit: F/U 1 month [1175] Primary Visit Diagnosis: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] Other Visit Diagnosis:Laceration of left index finger without foreign body without damage to nail, initial encounter [S61.211A] Prescriptions as of 04/04/2018 Sig: DULOXETINE 60 MG CAPSULE,RADHA* Take 1 capsule by mouth once * HYDROCHLOROTHIAZIDE 12.5 MG C* Take one tablet every other d* ALBUTEROL SULFATE HFA 90 MCG/* Inhale 2 Puffs as instructed * FLURBIPROFEN 100 MG TABLET Take 1 tablet by mouth twice * OMEPRAZOLE 20 MG CAPSULE,RADHA* Take 1 capsule by mouth daily* Problem List As Of Date 04/04/2018 Noted Resolved Thoracic or lumbosacral neuritis or radiculitis*INVALID FOR*04/26/2016 Unspecified disorder of liver [K76.9] INVALID FOR*04/26/2016 RESTLESS LEGS SYNDROME [G25.81] INVALID FOR* Anxiety state, unspecified [F41.1] INVALID FOR*04/26/2016 Abdominal pain, right lower quadrant [R10.31] INVALID FOR*04/26/2016 Abnormal mammogram, unspecified [R92.8] INVALID FOR*04/26/2016 Fibromyalgia [M79.7] INVALID FOR* Iron Deficiency Anemia due to Chronic Blood Los*INVALID FOR* Lumbago [M54.5] INVALID FOR*04/26/2016 Impaired fasting glucose [R73.01] INVALID FOR* Trochanteric bursitis of right hip [M70.61] INVALID FOR*04/26/2016 Adjustment reaction with anxiety and depression*INVALID FOR* Hyperlipidemia LDL goal <100 [E78.5] INVALID FOR* Family history of ASCVD (arteriosclerotic cardi*INVALID FOR* Lumbar strain [S39.012A] INVALID FOR* Obesity, Class III, BMI 40-49.9 (morbid obesity*INVALID FOR* Other instructions from your clinician: PLAN: continue cymbalta 60mg daily continue to keep wound clean and covered until healed same other meds return to office 6 mos and as needed Korey Ferguson III MD Encounter Status:Closed by KOREY FERGUSON III, MD on 04/04/18 PROGRESS Observed: 03/04/2018 Status: COMPLETED Source: [place] 5:33 PM [facility] REPOSITORY [facility] ID: [id number] Author: Korey Ferguson III Service: (none) Author Type: Physician Type: Progress Notes Filed: 03/04/2018 8:36 PM Note Text: SUBJECTIVE: This is a 67 year old female that is here today for 1. depression: cymbalta does not seem to be working because she remains mean and snippy. Missing her more now. Sleeping well. Previously on higher dose of cymbalta 2. some leg fatigue and aching but this does not keep her awake. 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 Notes swelling in ankles at end of the day 3. obesity--poor diet and little exercise 4. urinary urgency/stress incontinence. PAST MEDICAL HISTORY Diagnosis Date - Backache, unspecified - Hyperlipidemia 02/27/2011 - Hyperlipidemia LDL goal <100 04/26/2016 - Impaired fasting glucose 02/27/2011 - Myalgia and myositis, unspecified - Pure hypercholesterolemia - Vestibular neuritis Current Outpatient Prescriptions on File Prior to Visit: DULoxetine (CYMBALTA) 20 mg capsule Take 1 capsule by mouth once daily. Hydrochlorothiazide 12.5 mg capsule Take one tablet every other day as needed for edema albuterol HFA (PROAIR HFA) 90 mcg/actuation inhaler Inhale 2 Puffs as instructed every 6 hours as needed. Flurbiprofen 100 mg tablet Take 1 tablet by mouth twice daily. omeprazole (PRILOSEC) 20 mg capsule Take 1 capsule by mouth daily before breakfast. 1/2 hr before meal. No current facility-administered medications on file prior to visit. FAMILY HISTORY Problem Relation Age of Onset - Stroke Mother - Breast Cancer Mother - Heart Father - Thyroid Maternal Aunt - Hypertension Sister - Heart Paternal Grandmother - Cancer Paternal Grandfather Stomach - Coronary Artery Disease Maternal Grandfather - Breast Cancer Sister - Heart Brother Social History Substance Use Topics - Smoking status: Never Smoker - Smokeless tobacco: Never Used - Alcohol use No BP 139/74 Pulse 76 Resp 16 Wt 98.4 kg (217 lb) BMI 41.00 kg/m? . OBJECTIVE: APPEARANCE Well appearing, alert, in no acute distress, well-hydrated, well nourished., Morbidly obese EXTREMITIES tight hamstring and calf muscles. Full lower legs but no tenderness. Appearance: well dressed well groomed, cooperative and pleasant Behavior: good eye contact Speech: fluent and coherent Mood: depressed Affect: constricted Perceptions: none Thought process: goal directed Thought Content: preoccupations with grief from 's Intelligence level: normal Insight: fair Judgment: fair ASSESSMENT: situational depression-not at goal fibromyalgia leg muscle tightness obesity PLAN: increase cymbalta from 30 mg to 60mg daily leg stretching with ankles at 90 degrees--30 second stretch. Stretch 1-2 times/day healthy weight losing diet and regular exercise eat less sugar, bread, potato, pasta, rice, corn, corn syrup, saturated fats return to office 1 mo. Korey Ferguson III MD BARRIOS Observed: 03/04/2018 Status: COMPLETED Source: [place] 4:20 PM [facility] REPOSITORY Office Visit ([facility]) MONICASHERIDAN L ([id number]) 1950 F NFR Date Time Provider Department 03/04/18 4:20 PM KOREY FERGUSNO III [facility] During your visit today, we recorded the following information about you: Pulse Respiration Blood pressure Weight 76/minute 16/minute 139/74 98.4 kg Korey Ferguson III 03/04/2018 8:36 PM Signed SUBJECTIVE: This is a 67 year old female that is here today for 1. depression: joeta does not seem to be working because she remains mean and snippy. Missing her more now. Sleeping well. Previously on higher dose of cymbalta 2. some leg fatigue and aching but this does not keep her awake. 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 Notes swelling in ankles at end of the day 3. obesity--poor diet and little exercise 4. urinary urgency/stress incontinence. PAST MEDICAL HISTORY Diagnosis Date - Backache, unspecified - Hyperlipidemia 02/27/2011 - Hyperlipidemia LDL goal <100 04/26/2016 - Impaired fasting glucose 02/27/2011 - Myalgia and myositis, unspecified - Pure hypercholesterolemia - Vestibular neuritis Current Outpatient Prescriptions on File Prior to Visit: DULoxetine (CYMBALTA) 20 mg capsule Take 1 capsule by mouth once daily. Hydrochlorothiazide 12.5 mg capsule Take one tablet every other day as needed for edema albuterol HFA (PROAIR HFA) 90 mcg/actuation inhaler Inhale 2 Puffs as instructed every 6 hours as needed. Flurbiprofen 100 mg tablet Take 1 tablet by mouth twice daily. omeprazole (PRILOSEC) 20 mg capsule Take 1 capsule by mouth daily before breakfast. 1/2 hr before meal. No current facility-administered medications on file prior to visit. FAMILY HISTORY Problem Relation Age of Onset - Stroke Mother - Breast Cancer Mother - Heart Father - Thyroid Maternal Aunt - Hypertension Sister - Heart Paternal Grandmother - Cancer Paternal Grandfather Stomach - Coronary Artery Disease Maternal Grandfather - Breast Cancer Sister - Heart Brother Social History Substance Use Topics - Smoking status: Never Smoker - Smokeless tobacco: Never Used - Alcohol use No BP 139/74 Pulse 76 Resp 16 Wt 98.4 kg (217 lb) BMI 41.00 kg/m? . OBJECTIVE: APPEARANCE Well appearing, alert, in no acute distress, well- hydrated, well nourished., Morbidly obese EXTREMITIES tight hamstring and calf muscles. Full lower legs but no tenderness. Appearance: well dressed well groomed, cooperative and pleasant Behavior: good eye contact Speech: fluent and coherent Mood: depressed Affect: constricted Perceptions: none Thought process: goal directed Thought Content: preoccupations with grief from 's Intelligence level: normal Insight: fair Judgment: fair ASSESSMENT: situational depression-not at goal fibromyalgia leg muscle tightness obesity PLAN: increase cymbalta from 30 mg to 60mg daily leg stretching with ankles at 90 degrees--30 second stretch. Stretch 1-2 times/day healthy weight losing diet and regular exercise eat less sugar, bread, potato, pasta, rice, corn, corn syrup, saturated fats return to office 1 mo. JOSH Herrera MD, Frank A III 03/04/2018 5:58 PM Signed PLAN: increase cymbalta from 30 mg to 60mg daily leg stretching with ankles at 90 degrees--30 second stretch. Stretch 1-2 times/day healthy weight losing diet and regular exercise eat less sugar, bread, potato, pasta, rice, corn, corn syrup, saturated fats return to office 1 mo. Korey Ferguson III MD Referring Provider: SELF [200] Allergies As of Date: 03/04/2018 Noted Allergy Reaction CODEINE 01/14/2008 Comments: pain in chest LIPITOR (ATORVASTATIN CALCIUM) 07/12/2005 Comments: muscle pain MORPHINE 08/06/2017 12 - Shortness of Breath VICODIN (HYDROCODONE-ACETAMINOPHE*01/24/2008 Comments: pain in chest ZOCOR (SIMVASTATIN) 07/12/2005 Comments: muscle pain Date Reviewed: 03/04/2018 Reviewed by: Samira Ross (Patricia), MA - Fully Assessed Reason for Visit: Musculoskeletal Problem [69] Cmt: legs are tired all the time Primary Visit Diagnosis:Screening for breast cancer [Z12.31] Other Visit Diagnoses:Fibromyalgia [M79.7] 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] Order(s):[facility] SCREENING [[id number]] Order #: [id number] FUTURE DULoxetine (CYMBALTA) 60 mg capsuleTake 1 capsule by mouth once daily.Disp: 30 capsuleRfl: 11 Prescriptions as of 03/04/2018 Sig: HYDROCHLOROTHIAZIDE 12.5 MG C* Take one tablet every other d* ALBUTEROL SULFATE HFA 90 MCG/* Inhale 2 Puffs as instructed * FLURBIPROFEN 100 MG TABLET Take 1 tablet by mouth twice * OMEPRAZOLE 20 MG CAPSULE,RADHA* Take 1 capsule by mouth daily* DULOXETINE 60 MG CAPSULE,RADHA* Take 1 capsule by mouth once * Problem List As Of Date 03/04/2018 Noted Resolved Thoracic or lumbosacral neuritis or radiculitis*INVALID FOR*04/26/2016 Unspecified disorder of liver [K76.9] INVALID FOR*04/26/2016 RESTLESS LEGS SYNDROME [G25.81] INVALID FOR* Anxiety state, unspecified [F41.1] INVALID FOR*04/26/2016 Abdominal pain, right lower quadrant [R10.31] INVALID FOR*04/26/2016 Abnormal mammogram, unspecified [R92.8] INVALID FOR*04/26/2016 Fibromyalgia [M79.7] INVALID FOR* Iron Deficiency Anemia due to Chronic Blood Los*INVALID FOR* Lumbago [M54.5] INVALID FOR*04/26/2016 Impaired fasting glucose [R73.01] INVALID FOR* Trochanteric bursitis of right hip [M70.61] INVALID FOR*04/26/2016 Adjustment reaction with anxiety and depression*INVALID FOR* Hyperlipidemia LDL goal <100 [E78.5] INVALID FOR* Family history of ASCVD (arteriosclerotic cardi*INVALID FOR* Lumbar strain [S39.012A] INVALID FOR* Obesity, Class III, BMI 40-49.9 (morbid obesity*INVALID FOR* Other instructions from your clinician: PLAN: increase cymbalta from 30 mg to 60mg daily leg stretching with ankles at 90 degrees--30 second stretch. Stretch 1-2 times/day healthy weight losing diet and regular exercise eat less sugar, bread, potato, pasta, rice, corn, corn syrup, saturated fats return to office 1 mo. Korey Ferguson III MD Prescriptions ordered this encounter Disp Refills Start End DULOXETINE 60 MG CAPSULE,DELAYED REL* 30 c* 11 03/04/2018 Route: ORAL Sig: Take 1 capsule by mouth once daily. Medications Discontinued During This Encounter DULoxetine (CYMBALTA) 20 mg capsule 30 c* 11 01/07/2018 03/04/2018 Route: ORAL Sig: Take 1 capsule by mouth once daily. Disc: Dosage adjustment Encounter Status:Closed by KOREY FERGUSON III, MD on 03/04/18 PROGRESS Observed: 12/01/2017 Status: COMPLETED Source: [place] 3:27 PM [facility] REPOSITORY HNO ID: [id number] Author: Korey Ferguson III Service: (none) Author Type: Physician Type: Progress Notes Filed: 12/01/2017 3:27 PM Note Text: There is no evidence of H. pylori antibody so I do not think that you have a bacteria induced stomach ulcer. The other lab results are fine with the exception of a mild decrease in potassium. This can be caused by the diuretic hydrochlorothiazide. Try to eat extra bananas, citrus fruit, tomatoes and use the hydrochlorothiazide a little less often. May recheck potassium level in 3 months. There are other lab results are normal. Korey Ferguson III, MD, FAAFP CBC Collected: 11/27/2017 Status: F Source: [place] 4:44 PM [facility] REPOSITORY TYPE CODE TESTS RESULT OUT OF REFERENCE UNITS RANGE LAB WBC 3.70-11.00 k/uL WBC 8.79 LAB RBC 3.90-5.20 m/uL RBC 4.87 LAB HGB 11.5-15.5 g/dL Hemoglobin 14.3 LAB HCT 36.0-46.0 % Hematocrit 45.1 LAB MCV 80.0-100.0 fL MCV 92.6 LAB MCH 26.0-34.0 pG MCH 29.4 LAB MCHC 30.5-36.0 g/dL MCHC 31.7 LAB RDWCV 11.5-15.0 % RDW-CV 13.3 LAB PLTCT 150-400 k/uL Platelet Count 269 LAB MPV 9.0-12.7 fL MPV 11.1 LAB ABSNUC <0.01 k/uL Absolute nRBC <0.01 Performed By: #### CBC, CMP, LIPB, HBA1C, HPYLRI #### [facility] [address] [place], [place] [address] COMP METABOLIC PANEL Collected: 11/27/2017 Status: F Source: [place] 4:44 PM [facility] REPOSITORY TYPE CODE TESTS RESULT OUT OF REFERENCE UNITS RANGE LAB TP 6.3-8.0 g/dL Protein, Total 7.2 LAB ALB 3.9-4.9 g/dL Albumin 4.4 LAB CA 8.5-10.2 mg/dL Calcium, Total 9.4 LAB TBIL 0.2-1.3 mg/dL Bilirubin, Total 0.3 LAB ALKP 32-117 U/L Alkaline Phosphatase 72 LAB AST 13-35 U/L AST 17 LAB GLU 74-99 mg/dL Glucose 93 Result Comment: The [place] Diabetes Association (ADA) provides guidance for cutoff values for fasting glucose and random glucose. The ADA defines fasting as no caloric intake for at least 8 hours. Fas ting plasma glucose results between 100 to 125 mg/dL indicate increased risk for diabetes (prediabetes). Fasting plasma glucose results greater than or equal to 126 mg/dL meet the criteria for diagnosis of diabetes. In the absence of unequivocal hyperglycemia, results should be confirmed by repeat testing. In a patient with classic symptoms of hyperglycemia or hyperglycemic crisis, random plasma glucose results greater than or equal to 200 mg/dL meet the criteria for diagnosis of diabetes. Reference: Standards of Medical Care in Diabetes 2016, [place] Diabetes Association. Diabetes Care. 2016.39(Suppl 1). LAB BUN 7-21 mg/dL BUN 19 LAB CRET 0.58-0.96 mg/dL Creatinine 0.75 LAB NA 136-144 mmol/L Sodium 139 LAB K 3.7-5.1 mmol/L Potassium Low 3.6 LAB CL 97-105 mmol/L Chloride 100 LAB CO2 22-30 mmol/L CO2 28 LAB AGAP 9-18 mmol/L Anion Gap 11 LAB ALT 7-38 U/L ALT 23 LAB GFRAA eGFR- Amer. >60 LAB GFRNAA . eGFR-All Other Races >60 Result Comment: eGFR (Estimated GFR) Units of measure: mL/min/1.73 meters squared eGFR is derived from the reexpressed MDRD Study equation using the following parameters: serum creatinine, age, gender and race. The creatinine assay has been calibrated to be traceable to IDMS. An eGFR <60 mL/min/1.73m2 for >3 months is consistent with chronic kidney disease. Refer to KDOQI guidelines for clinical interpretation. In patients with unstable renal function, e.g. those with acute kidney injury, the eGFR may not accurately reflect actual GFR. Performed By: #### CBC, CMP, LIPB, HBA1C, HPYLRI #### [facility] [address] [place], [place] [address] LIPID PANEL, BASIC Collected: 11/27/2017 Status: F Source: [place] 4:44 PM [facility] REPOSITORY TYPE CODE TESTS RESULT OUT OF REFERENCE UNITS RANGE LAB CHOL <200 mg/dL Cholesterol High 206 Result Comment: <200 mg/dL, Desirable 200-239 mg/dL, Borderline high >239 mg/dL, High LAB TRIGLY <150 mg/dL Triglyceride 148 Result Comment: <150 mg/dL, Normal 150-199 mg/dL, Borderline high 200-499 mg/dL, High >499 mg/dL, Very high LAB HDL >39 mg/dL HDL-Cholesterol 56 Result Comment: 40-59 mg/dL, Acceptable >59 mg/dL, High: Negative risk factor for coronary heart disease <40 mg/dL, Low: Positive risk factor for coronary heart disease LAB LDL <100 mg/dL LDL-Cholesterol High 120 Result Comment: <100 mg/dL, Optimal 100-129 mg/dL, Near optimal/above optimal 130-159 mg/dL, Borderline high 160-189 mg/dL, High >189 mg/dL, Very high Secondary prevention optimal LDL Cholesterol levels are recommended to be < 70 mg/dL LAB NONHDL <130 mg/dL Non HDL High Cholesterol 150 Result Comment: <130 mg/dL, Optimal 130-159 mg/dL, Near optimal/above optimal 160-189 mg/dL, Borderline high 190-219 mg/dL, High >219 mg/dL, Very high Secondary prevention optimal non HDL Cholesterol levels are recommended to be < 100 mg/dL LAB FT hrs Fasting Time 2 LAB VLDL <30 mg/dL High VLDL Cholesterol 30 LAB TCHDL <5.10 TC:HDL Ratio 3.68 LAB LDLHDL <2.54 LDL:HDL Ratio 2.14 Result Comment: Reference: 1. National Cholesterol Education Program ATP III Guideline At-A-Glance Quick Desk Reference: National Heart, Lung, and Blood [place]. National Institutes of Health. 2001: NIH Publication No. 01-3305. 2. An International Atherosclerosis Society position paper: global recommendations for the management of dyslipidemia: executive summary, Atherosclerosis. 2014: 232(2):410-413. Performed By: #### CBC, CMP, LIPB, HBA1C, HPYLRI #### [email or web address] [address] [address] HEMOGLOBIN A1C Collected: 11/27/2017 Status: F Source: [place] 4:44 PM [facility] REPOSITORY TYPE CODE TESTS RESULT OUT OF REFERENCE UNITS RANGE LAB HGBA1C 4.3-5.6 % High Hemoglobin A1c 6.0 LAB HBA0 mg/dL Est. Average Glucose 126 Result Comment: eAG: (Estimated average glucose) is a calculated value from HgbA1c and is safety representative of the average blood glucose level in the last 2-3 month period. Performed By: #### CBC, CMP, LIPB, HBA1C, HPYLRI #### [email or web address] [address] [place] [address] HELICO PYLORI AB Collected: 11/27/2017 Status: F Source: [place] 4:44 [facility] REPOSITORY TYPE CODE TESTS RESULT OUT OF REFERENCE UNITS RANGE LAB HPYLRL Negative H. pylori Negative IgG, Qual Result Comment: H. pylori IgG antibodies were not detected in the sample. Negative results by this test do not preclude recent primary infection. LAB HPYLR U/mL H pylori Ab, IgG 0.4 Result Comment: U/mL are interpreted as follows: Negative specimens <0.9 Indeterminate specimens >=0.9 to <1.1 Positive specimens >=1.1 Results were obtained with the IMMULITE 2000 H.pylori IgG EIA. Results obtained from other manufacturers' assay methods may not be used interchangeably. Performed By: #### CBC, CMP, LIPB, HBA1C, HPYLRI #### [email or web address] [address] [id number] PROGRESS Observed: 11/26/2017 Status: COMPLETED Source: [place] 7:52 PM [facility] REPOSITORY O ID: [id number] Author: Korey Ferguson III Service: (none) Author Type: Physician Type: Progress Notes Filed: 11/26/2017 9:25 PM Note Text: SUBJECTIVE: This is a 67 year old female that is here today for Chronic Medical Conditions. 1. morbid obesity 2. GERD--jail use of omeprazole. She still has reflux in spite of omeprazole. Taste of the med causes her to have nausea. co-workers have said that she has not looked well recently (pale) PAST MEDICAL HISTORY Diagnosis Date - Backache, unspecified - Hyperlipidemia 02/27/2011 - Hyperlipidemia LDL goal <100 04/26/2016 - Impaired fasting glucose 02/27/2011 - Myalgia and myositis, unspecified - Pure hypercholesterolemia - Vestibular neuritis Current Outpatient Prescriptions on File Prior to Visit: albuterol HFA (PROAIR HFA) 90 mcg/actuation inhaler Inhale 2 Puffs as instructed every 6 hours as needed. Hydrochlorothiazide 12.5 mg capsule Take one tablet every other day escitalopram oxalate (LEXAPRO) 20 mg tablet Take 1 tablet by mouth once daily. Flurbiprofen 100 mg tablet Take 1 tablet by mouth twice daily. meloxicam (MOBIC) 15 mg tablet Take 1 tablet by mouth once daily. Take with food. omeprazole (PRILOSEC) 20 mg capsule Take 1 capsule by mouth daily before breakfast. 1/2 hr before meal. benzonatate (TESSALON PERLE) 100 mg capsule Take 1 capsule by mouth three times daily as needed for Cough. lisinopril (ZESTRIL, PRINIVIL) 5 mg tablet Take 1 tablet by mouth once daily. No current facility-administered medications on file prior to visit. FAMILY HISTORY Problem Relation Age of Onset - Stroke Mother - Breast Cancer Mother - Heart Father - Thyroid Maternal Aunt - Hypertension Sister - Heart Paternal Grandmother - Cancer Paternal Grandfather Stomach - Coronary Artery Disease Maternal Grandfather - Breast Cancer Sister - Heart Brother Social History Substance Use Topics - Smoking status: Never Smoker - Smokeless tobacco: Never Used - Alcohol use No BP 122/80 Pulse 68 Temp 36.8 ?C (98.2 ?F) (Right Tympanic) Resp 10 Wt 96.2 kg (212 lb) BMI 40.06 kg/m2 . OBJECTIVE: APPEARANCE Well appearing, alert, in no acute distress, well-hydrated, well nourished., Morbidly obese EYES conjunctivae and sclerae normal NECK Supple, no adenopathy; thyroid symmetric, normal size, no bruits HEART RRR with normal S1 and S2, no murmurs, no gallops, no JVD appreciated LUNG clear to auscultation ABDOMEN soft, , non-distended, without organomegaly or palpable masses, tenderness R mid abd w/o rigidity, rebound, EXTREMITIES No edema ASSESSMENT: GERD--not well controlled morbid obesity ?NSAID induced PUD PLAN: healthy weight losing diet and regular exercise eat less sugar, bread, potato, pasta, rice, corn, corn syrup, saturated fats discontinue flurbiprofen CBC, CMP, H. pylori refer to surgery for EGD Korey Ferguson III MD ALLERGIES ALLERGIES DATE TYPE / CODE NAME / CODE REACTION SEVERITY SOURCE Drug morphine/[id number] Shortness of Unknown [place] 9 Allergy/141898414( 45(RXNORM) breath [facility] Rep[facility] Drug hydrocodone/F0060 Chest Unknown [place] 9 Allergy/651471993( 74408(RXNORM) tightness [facility]) [facility] Repository Miscellaneous CHOLESTERAL Other Unknown [place] 9 Allergy/680763995( MEDICATION [facility] Rep[facility] Drug acetaminophen/F00 Chest Unknown [place] 8 Allergy/380065767( 1884368(RXNORM) tightness [facility]) Hospital Repository DRUG MORPHINE SHORTNESS OF [place] 7 INGREDI/354384248( Clinic Main SNOMED CT) [place] Repository DRUG/742966900(SNO HYDROCODONE-ACETA [place] [address]) MINOPHEN [facility] Main [place] Rep[facility] DRUG CODEINE [place] 8 INGREDI/839454663( [facility] Main SNOMED CT) [place] Rep[facility] DRUG ATORVASTATIN [place] 5 INGREDI/301396489( CALCIUM [facility] Main SNOMED CT) [place] Rep[facility] DRUG SIMVASTATIN [place] 5 INGREDI/712391369( [facility] Main SNOMED CT) [place] Rep[facility] ENCOUNTERS ENCOUNTERS ADMIT/DISCHARGE ACCOUNT ADMITTING ENCOUNTER LOCATION SOURCE NUMBER CLASS 11/08/2018/11/08/19 [id number] Emergency [facility] 19 [facility] ing:ED Repository 08/29/2018/08/30/20 [id number] Ambulatory [address] Repository 08/25/2018/08/25/20 [id number] Emergency [facility] 18 [facility] ing:ED Repository 08/22/2018/08/22/20 [id number] Emergency [facility] 18 [facility] ing:ED Repository 08/09/2018/08/12/20 [id number] Ambulatory [address] Repository 06/19/2018/06/20/20 [id number] Ambulatory [address] Repository 05/21/2018/05/21/20 [id number] Ambulatory [address] Repository 05/01/2018/05/01/20 [id number] Ambulatory [address] Main [place] Repository 05/01/2018/05/01/20 [id number] Ambulatory [address] Main [place] Repository 05/01/2018/05/07/20 [id number] Ambulatory [address] Main [place] Repository 04/04/2018/04/05/20 [id number] Ambulatory [address] Main [place] Repository 03/04/2018/03/06/20 [id number] Ambulatory [address] Repository 11/27/2017/11/27/19 [id number] Ambulatory [address] Repository 11/26/2017/11/26/19 [id number] Ambulatory [address] Repository PAYERS PAYERS ENCOUNTER GUARANTOR PAYER SUBSCRIBER SOURCE 11/08/2018 SHERIDAN [place] Primary SHERIDAN Avilez [id number] [place] Insurance:MEDICARE MARTINDOB: [facility] [place] [place] [facility] [id number] [address]Tgw: (330) Number: Repository [phone] (HP) [id number] Date:2018-11-08 11/08/2018 Secondary SHERIDAN Avilez Insurance:[facility] Number: [id number] Hospital [id number] Repository Date:1130-19-00MIUZVL [place] [address]VG: 11/08/2018 Tertiary NOT GIVENUNK [place] Insurance:SELF PAY [facility] Number: Effective Repository Date:2018-11-08 08/25/2018 SHERIDAN L Primary SHERIDAN L Raghav [id number] [place] Insurance:[facility]: [place] PART A [facility] [id number] [address]Rmx: (330) Number: Repository [phone] () [id number] Date:2018-08-25 08/25/2018 Secondary SHERIDAN L [place] Insurance:MUTUAL OF [facility]: [facility] Number: [id number] [place] [address] [id number] Repository Date:[id number] [place] [address]TO: 08/25/2018 Tertiary NOT GIVENUNK Raghav Insurance:SELF PAY [facility] Number: Effective Repository Date:2018-08-25 08/22/2018 SHERIDAN L Primary SHERIDAN L [place] [id number] [place] Insurance:MEDICARE BATTIESTDOB: [place], [place] PART A [address] [address]Msh: (330) Number: Repository [phone] () [id number] Date:2018-08-22 08/22/2018 Secondary SHERIDAN L Raghav Insurance:MUTUAL OF [facility] [place]: [facility] Number: [id number] [place] [address] [id number] Repository Date:[id number] [place], [place] [address]TH: 08/22/2018 Tertiary NOT GIVENUNK Raghav Insurance:SELF PAY [facility] Number: Effective Repository Date:2018-08-22
== END 2018-11-08 20:30 | disposition home or self-care (01) ==
LOC: ED 19:34
PROVIDERS: Emergency Provider Emergency Medicine; Family Provider Family Medicine; PCP Family Medicine
DX: S70.01XA Contusion of right hip, initial encounter (principal); W01.0XXA Fall on same level from slipping, tripping and stumbling without subsequent striking against object, initial encounter; Y93.89 Activity, other specified; Y92.007 Garden or yard of unspecified non-institutional (private) residence as the place of occurrence of the external cause
CPT/HCPCS: 73502; 99283

== ENCOUNTER 2019-04-02 19:55 | Emergency (ER) | payer MEDICARE, OTHER, SELFPAY ==
[2019-04-02 19:57] VITALS: BP 133/84; PULSE 90; RESP 15; TEMP 36.4; O2SAT 98; BMI 40.4
--- NOTE | 2019-04-02 20:36 | ED.VIS.UPPEX ---
History of Present Illness Chief Complaint: Upper Extremity Injury Informant: Patient Onset: Month(s) - 1 Context: Gradual Onset Timing: Continuous Quality of Pain: Aching Location: left shoulder Current Severity: Moderate Maximum Severity: Moderate Associated Symptoms: Loss of Funtion. Negative for: Parasthesia, Weakness Narrative: Worsening pain and trouble moving her left shoulder. Pain is subacromial mostly. Overhead movements are the worst. She saw her doctor for it and was advised to go to physical therapy first. She states she mowed her grass today and now the pain is significantly worse. Past Medical History - Allergies and Home Meds Allergies/Adverse Reactions: Allergies hydrocodone [From Vicodin] Allergy (Verified 04/02/19 19:56) Chest tightness morphine Allergy (Verified 04/02/19 19:56) Shortness of breath CHOLESTERAL MEDICATION Adverse Reaction (Uncoded 04/02/19 19:56) Other ACHE ALL OVER Primary Care Physician: Korey Ferguson III, MD [Primary Care Provider] - Surgical History: appendectomy, cholecystectomy, hysterectomy Lives: Spouse/ Significant Other Smoking Status: Never smoker Review of Systems General: Denies: Chills, Fever Musculoskeletal: Reports: Extremity Pain. Denies: Swelling Neurological: Denies: Headache, Weakness, Parasthesia, Numbness Physical Exam Vital Signs/Narrative: Vital Signs Temp Pulse Resp BP Pulse Ox 04/02/19 19:57 97.6 F L 90 15 133/84 H 98 Inital Vital Signs reviewed: Yes Left Shoulder: Limited ROM - Unable to reach overhead due to pain. Significant exacerbation of pain when using her left hand to reach toward her right shoulder. No tenderness at the long head of the biceps. Tender subacromial. Good short arc range of motion without significant difficulty. Neurovascularly intact distally. No AC joint tenderness. General: Well nourished, Well developed, - - well-appearing, nad Head: Normocephalic, Atraumatic Skin: Normal color, No rash, No Trauma Neurological: Alert, Oriented x3, Cranial nerves II-XII grossly intact, Normal Strength, Normal Sensation, Normal Gait Psychological: Normal affect, Normal Mood Diagnostic/Tx/Re-eval Clinical Impression(s) from Imaging Studies Shoulder X-Ray 04/02/19 20:45 IMPRESSION: Degenerative changes of the acromioclavicular joint. Calcific tendinitis. Electronically Signed: Dipika Jones MD at 21:28 EDT Tel , Service support , - Medical Decision Making X-rays show calcific tendinitis. She is referred to orthopedics, given a sling to use for comfort and make sure that she understands to come out of it at least once daily, we will give her a dose of Toradol here because she wants something for pain before she drives home, as well as a home pack of oxycodone. ED Disposition - Plan for ED Patient: Disposition: Home or Assisted Living Diagnosis: Calcific tendinitis of left shoulder Instructions: ED Tendinitis Calcific Referrals: Korey Ferguson III, MD [Primary Care Provider] - Brendon Cervantes DO [STAFF PHYSICIAN] -
--- NOTE | 2019-04-02 20:45 | RAD_ITS ---
STUDY: X-RAY - LEFT SHOULDER REASON FOR EXAM: Female, 69 years old. Pain TECHNIQUE: 4 view(s) of the shoulder. COMPARISON: None. FINDINGS: Normal glenohumeral articulation. There are degenerative changes of the acromioclavicular joint. Normal acromion. Normal humeral head and visualized proximal humerus. There is periarticular soft tissue calcification consistent with a calcific tendinitis. Normal visualized pulmonary apex. RAD/Shoulder min 2 Views IMPRESSION: Degenerative changes of the acromioclavicular joint. Calcific tendinitis. Electronically Signed: Dipika Jones MD at 21:28 EDT Tel , Service support ,
[2019-04-02] MEDS: Ketorolac 15 MG/ML Vial IM (22:45)
[2019-04-02] MEDS: oxyCODONE 5 MG Tablet PO (22:46)
[2019-04-02 22:52] VITALS: BP 120/78; PULSE 80; RESP 18; O2SAT 98
== END 2019-04-02 22:52 | disposition home or self-care (01) ==
PROVIDERS: Emergency Provider Emergency Medicine; Family Provider Family Medicine; PCP Family Medicine
DX: M75.32 Calcific tendinitis of left shoulder (principal)
CPT/HCPCS: 73030; 96372; 99284

== ENCOUNTER 2020-06-20 15:02 | Emergency (ER) | payer MEDICARE, OTHER, SELFPAY ==
[2020-06-20 15:05] VITALS: BP 138/94; PULSE 81; RESP 18; TEMP 36.5; O2SAT 99; BMI 36.6
--- NOTE | 2020-06-20 15:55 | EKG12_ITS ---
Test Reason : CP-TRIAGE Blood Pressure : / mmHG Vent. Rate : 065 BPM Atrial Rate : 065 BPM P-R Int : 152 ms QRS Dur : 082 ms QT Int : 396 ms P-R-T Axes : 054 033 018 degrees QTc Int : 411 ms Normal sinus rhythm Low voltage QRS (Limb Leads) Confirmed by HIRAM NARVAEZ, ROSA M ([id number]), non linear editor DELANO GODFREY ([id number]) on 06/24/2020 11:26:45 AM Referred By: Confirmed By:ROSA M GANDHI MD
--- NOTE | 2020-06-20 15:55 | RAD_ITS ---
STUDY: X-RAY CHEST REASON FOR EXAM: Female, 70 years old. started Cipro for UTI yesterday, when she takes it- she feels heaviness to chest. TECHNIQUE: Frontal view of the chest COMPARISON: April 10 2011 FINDINGS: The lungs are clear and expanded. There is no demonstrated pleural abnormality. Normal size heart. Normal mediastinum and irvin. Normal visualized pulmonary arteries. Normal visualized aortic arch and descending thoracic aorta. Normal visualized thoracic spine. Normal visualized ribs, clavicles, and shoulders. There is no demonstrated abnormality of the visualized soft tissue structures of the upper abdomen. RAD/Chest 1 View (Portable) IMPRESSION: Normal x-ray examination of the chest. Electronically Signed: Colby Fernandes, at 17:03 EDT Tel , Service support ,
--- NOTE | 2020-06-20 15:55 | ED.VIS.GEN ---
History of Present Illness Chief Complaint: Chest Pain Informant: Patient Narrative: Patient presents the emergency department for the evaluation of chest heaviness. Symptoms have been constant since this morning. She states that they began about an hour and a half after ingesting her first dose of ciprofloxacin that was prescribed for a possible urinary tract infection. Patient states that last evening it resolved eventually but returned again this morning after she took her second dose. She does note some burning with urination that is new. She notes some lower right abdominal discomfort radiating into her right flank. She states she passed 2 kidney stones earlier this week. She was feeling ill from ingesting greasy foods resulting in a increase bowel movements but not diarrhea. No fever. No cough. No shortness of breath. She states that earlier in the week she had a CT scan through her primary care physician of her abdomen and pelvis. She states that this showed a right renal cyst. Past Medical History - Allergies and Home Meds Allergies/Adverse Reactions: Allergies hydrocodone [From Vicodin] Allergy (Verified 06/20/20 15:05) Chest tightness morphine Allergy (Verified 06/20/20 15:05) Shortness of breath CHOLESTERAL MEDICATION Adverse Reaction (Uncoded 06/20/20 15:05) Other ACHE ALL OVER Primary Care Physician: Korey Ferguson III, MD [Primary Care Provider] - Surgical History: appendectomy, cholecystectomy, hysterectomy Smoking Status: Never smoker Review of Systems General: Reports: Chills. Denies: Fever, Sweats Eyes: Denies: Visual changes - bilaterally, Diplopia ENT: Denies: Rhinorrhea, Sore throat Cardiovascular: Reports: Chest pain. Denies: Palpitations Respiratory: Denies: Dyspnea, Cough, Dyspnea on exertion Gastrointestinal: Reports: Abdominal pain. Denies: Nausea, Vomiting, Diarrhea, Melena, Hematochezia Genitourinary: Reports: Dysuria, - - Right CVA Pain. Denies: Hematuria, Frequency Musculoskeletal: Denies: Back pain, Extremity Pain Skin: Denies: Rash, Wounds Neurological: Denies: Headache, Weakness, Numbness Physical Exam Vital Signs/Narrative: Vital Signs Temp Pulse Resp BP Pulse Ox 06/20/20 15:05 97.7 F L 81 18 138/94 H 99 General: Well nourished, Well developed, No Acute Distress Head: Normocephalic, Atraumatic Eyes: Perrl, EOMI ENT: Moist mucous membranes, No rhinorrhea Neck: Supple, Nontender Cardiovascular: Regular rate, Regular rhythm, No murmurs Respiratory: No distress, CTA bilaterally, Chest nontender Abdomen: Soft, Nontender, Nondistended, Normal bowel sounds Back: CVA tenderness - on Right Extremities: Nontender, No edema Skin: Normal color, No rash Neurological: Alert, Oriented x3, Cranial nerves II-XII grossly intact, Normal Strength, Normal Sensation Psychological: Normal affect, Normal Mood Diagnostic/Tx/Re-eval Clinical Impression(s) from Imaging Studies Chest X-Ray 06/20/20 15:55 IMPRESSION: Normal x-ray examination of the chest. Electronically Signed: Colby Fernandes, at 17:03 EDT Tel , Service support , Abdomen/Pelvis CT 06/20/20 17:47 IMPRESSION: No acute abdominal findings. Electronically Signed: Colby Fernandes, at 18:20 EDT Tel , Service support , Laboratory Last Values WBC 6.3 K/mm3 (4.4-11.0) 06/20/20 16:20 RBC 5.08 M/mm3 (4.2-5.4) 06/20/20 16:20 Hgb 14.9 g/dL (12.0-15.0) 06/20/20 16:20 Hct 46.3 % (37-47) 06/20/20 16:20 MCV 91.1 fL (81-99) 06/20/20 16:20 MCH 29.3 pg (27.0-32.0) 06/20/20 16:20 MCHC 32.2 g/dL (32-36) 06/20/20 16:20 RDW Std Deviation 44.8 fl (35.1-43.9) H 06/20/20 16:20 RDW Coeff of Nuvia 13.2 % (11.6-14.6) 06/20/20 16:20 Plt Count 271 K/mm3 (150-450) 06/20/20 16:20 MPV 10.5 fl (6.2-12.0) 06/20/20 16:20 Immature Gran % (Auto) 0.200 % (0.0-0.9) 06/20/20 16:20 Neut % (Auto) 57.5 % (47-70) 06/20/20 16:20 Lymph % (Auto) 29.5 % (19-41) 06/20/20 16:20 [place] % (Auto) 10.8 % (0-10) H 06/20/20 16:20 Eos % (Auto) 1.4 % (0-5) 06/20/20 16:20 Baso % (Auto) 0.6 % (0-1) 06/20/20 16:20 Absolute Neuts (auto) 3.6 X10^3/uL (2.0-7.7) 06/20/20 16:20 Absolute Lymphs (auto) 1.85 X10^3/uL (0.83-4.51) 06/20/20 16:20 Nucleated RBC % 0 % (0-5) 06/20/20 16:20 Sodium 141 mmol/L (136-145) 06/20/20 16:20 Potassium 3.8 mmol/L (3.5-5.1) 06/20/20 16:20 Chloride 108 mmol/L (98-107) H 06/20/20 16:20 Carbon Dioxide 29.0 mmol/L (21.0-32.0) 06/20/20 16:20 Anion Gap 4 (5-15) L 06/20/20 16:20 BUN 17 mg/dL (7-18) 06/20/20 16:20 Creatinine 0.84 mg/dL (0.55-1.02) 06/20/20 16:20 Estim Creat Clear Calc 49.29 ml/min 06/20/20 16:20 Est GFR (MDRD) Af Amer 86 mL/min (>60) 06/20/20 16:20 Est GFR (MDRD) Non-Af 71 mL/min (>60) 06/20/20 16:20 BUN/Creatinine Ratio 20.1 RATIO (10-20) H 06/20/20 16:20 Glucose 101 mg/dL (74-106) 06/20/20 16:20 Calcium 9.1 mg/dL (8.5-10.1) 06/20/20 16:20 Total Bilirubin 0.40 mg/dL (0.20-1.00) 06/20/20 16:20 AST 15 U/L (15-37) 06/20/20 16:20 ALT 32 U/L (13-56) 06/20/20 16:20 Alkaline Phosphatase 82 U/L (45-117) 06/20/20 16:20 Troponin I < 0.015 ng/mL (<0.045) 06/20/20 16:20 Total Protein 7.4 g/dL (6.4-8.2) 06/20/20 16:20 Albumin 3.7 g/dL (3.2-5.0) 06/20/20 16:20 Globulin 3.7 g/dL (2.2-4.2) 06/20/20 16:20 Albumin/Globulin Ratio 1.0 RATIO (0.9-2.4) 06/20/20 16:20 Lipase 114 U/L (73-393) 06/20/20 16:20 Urine Color Straw (Yellow) 06/20/20 16:20 Urine Clarity Sl. Cloudy (Clear) 06/20/20 16:20 Urine pH 6.0 (5.0 - 8.0) 06/20/20 16:20 Ur Specific Dwarf 1.015 (1.002-1.030) 06/20/20 16:20 Urine Protein Negative mg/dl (Negative) 06/20/20 16:20 Urine Glucose (UA) Normal mg/dl (Normal) 06/20/20 16:20 Urine Ketones Negative mg/dl (Negative) 06/20/20 16:20 Urine Occult Blood Negative /ul (Negative) 06/20/20 16:20 Urine Nitrite Negative (Negative) 06/20/20 16:20 Urine Bilirubin Negative mg/dL (Negative) 06/20/20 16:20 Urine Urobilinogen Normal mg/dl (Normal) 06/20/20 16:20 Ur Leukocyte Esterase 25 /ul (Negative) H 06/20/20 16:20 Urine RBC 0 SEEN /hpf (0-5) 06/20/20 16:20 Urine WBC 0 SEEN /hpf (0-5) 06/20/20 16:20 Ur Squamous Epith Cells 0-5 SEEN /hpf (5-10) 06/20/20 16:20 Urine Bacteria 0 SEEN /hpf (None Seen) 06/20/20 16:20 Urine Mucus 0 SEEN /hpf (<or=2+) 06/20/20 16:20 - Rhythm Strip Rhythm Strip: Sinus Rhythm Rate: 65 Ectopy: None - EKG Initial EKG Interpretation: Sinus Rhythm - EKG demonstrates a normal sinus rhythm at a rate of 65. No ectopy or concerning features of ACS. - Medical Decision Making Chest discomfort has been constant for greater than 8 hours and troponin is negative and her EKG is normal. I think this is noncardiac. Basic labs were negative. Urinalysis shows no evidence of infection someone a recommend that she can stop the Cipro especially in the light of her chest discomfort she is getting with it. Towards the abdominal pain I do not see anything on CT. She does have some increased stool in the right lower quadrant so we will have her take a dose of magnesium citrate see if that changes. She continues have symptoms with neck several days she needs to follow-up with primary care return if worsening ED Disposition - Plan for ED Patient: Disposition: Home or Assisted Living Diagnosis: Chest pain, Abdominal pain Instructions: ED Chest Pain Atypical Unkn Cause Referrals: Korey Ferguson III, MD [Primary Care Provider] - 3-5 Days if not improving Additional Instructions: You may go ahead and discontinue your Cipro. I am recommending you take 1 bottle of magnesium citrate that you can purchase [id number] at [facility]. If you continue to have symptoms over the next several days please follow-up or return if worsening
[2020-06-20 16:34] LABS: Absolute Lymphocyte Count 1.85 X10^3/uL (0.83-4.51); Absolute Neutrophil Count 3.6 X10^3/uL (2.0-7.7); Basophil# 0.04 X10^3/uL; Basophil% 0.6 % (0-1); Eosinophil# 0.09 X10^3/uL; Eosinophils% 1.4 % (0-5); Hematocrit 46.3 % (37-47); Hemoglobin 14.9 g/dL (12.0-15.0); Lymphocyte # 1.85 X10^3/ul (4.0); Lymphocyte % 29.5 % (19-41); Mean Corp Hgb Conc 32.2 g/dL (32-36); Mean Corpuscular Hgb 29.3 pg (27.0-32.0); Mean Corpuscular Volume 91.1 fL (81-99); Mean Platelet Vol. 10.5 fl (6.2-12.0); Monocyte# 0.68 X10^3/uL; Monocyte% 10.8 % (0-10); NRBC Flagged by Analyzer 0 % (0-5); Neutrophil % 57.5 % (47-70); Platelet Count 271 K/mm3 (150-450); RBC Distribution Width CV 13.2 % (11.6-14.6); RBC Distribution Width SD 44.8 fl (35.1-43.9); Red Blood Count 5.08 M/mm3 (4.2-5.4); White Blood Count 6.3 K/mm3 (4.4-11.0)
[2020-06-20 16:38] VITALS: BP 141/77; PULSE 58; RESP 16; TEMP 36.5; O2SAT 99
[2020-06-20 17:00] LABS: AST(SGOT) 15 U/L (15-37); Alanine Aminotransfer ALT/SGPT 32 U/L (13-56); Albumin, Serum 3.7 g/dL (3.2-5.0); Alkaline Phosphatase 82 U/L (45-117); Anion Gap 4 (5-15); BUN 17 mg/dL (7-18); BUN/Creat Ratio 20.1 RATIO (10-20); Calcium,Total 9.1 mg/dL (8.5-10.1); Chloride 108 mmol/L (98-107); Creatinine, Serum 0.84 mg/dL (0.55-1.02); EST Glomerular Filtration Rate 71 mL/min (>60); Est Glom Filt Rate - Afr Amer 86 mL/min (>60); Estimated Creatinine Clearance 49.29 ml/min; Globulin 3.7 g/dL (2.2-4.2); Glucose 101 mg/dL (74-106); Lipase 114 U/L (73-393); Potassium 3.8 mmol/L (3.5-5.1); Protein, Total 7.4 g/dL (6.4-8.2); Sodium Level 141 mmol/L (136-145)
[2020-06-20 17:25] LABS: Bacteria 0 SEEN /hpf (None Seen); Mucous, Urine 0 SEEN /hpf (<or=2+); Red Blood Cells-Urine 0 SEEN /hpf (0-5); White Blood Cells 0 SEEN /hpf (0-5)
[2020-06-20 17:26] LABS: Color, Urine Straw (Yellow); Glucose, Dipstick Normal (Normal); Ketone-Dipstick Negative (Negative); Leukocyte Esterase-Dipstick 25 /ul (Negative); Nitrite-Dipstick Negative (Negative); Occult Blood-Urine Negative /ul (Negative); Protein-Dipstick Negative (Negative); Specific Gravity, Urine 1.015 (1.002-1.030); Urine Bilirubin Dipstick Negative (Negative); Urine Clarity Sl. Cloudy (Clear); Urine Urobilinogen Normal (Normal)
[2020-06-20 17:32] LABS: Squamous Epithelial Cells - UA 0-5 SEEN /hpf (5-10)
--- NOTE | 2020-06-20 17:47 | CT_ITS ---
STUDY: CT ABDOMEN AND PELVIS WITHOUT CONTRAST REASON FOR EXAM: Female, 70 years old. Right lower quadrant pain, recent urinary tract infection RADIATION DOSAGE (If Supplied By Facility): CTDIvol = ( 17.855 ) mGy, DLP = ( 1062.10 ) mGycm TECHNIQUE: Transaxial images were obtained from the dome of the diaphragm to the symphysis pubis without oral contrast, and without intravenous contrast. Sagittal and coronal images were reconstructed. Individualized dose optimization techniques were used for this CT. COMPARISON: August 22 2018 FINDINGS: The visualized lung bases are unremarkable. The visualized portions of the heart are within normal limits. Normal liver. Gallbladder is removed. There is no biliary dilation.. Normal spleen. Normal pancreas. Normal bilateral adrenal glands. Normal right kidney. Normal left kidney. There is no intestinal obstruction. There is diffuse sigmoid diverticulosis without diverticulitis. The appendix is not seen as a separate structure. The liver, there is no confirmatory change in the right lower quadrant or around the cecum which is located in the central pelvis. Normal abdominal aorta. Normal inferior vena cava. Normal retroperitoneum. Normal urinary bladder. Uterus is surgically removed. Normal abdominal wall. The generative changes at L2-L3 produce moderate spondylotic thecal sac stenosis due to disc herniation. CT/Abdomen/Pelvis W IV Cont ONLY IMPRESSION: No acute abdominal findings. Electronically Signed: Colby Fernandes, at 18:20 EDT Tel , Service support ,
[2020-06-20 18:48] VITALS: BP 129/90; PULSE 74; RESP 18
== END 2020-06-20 18:49 | disposition home or self-care (01) ==
PROVIDERS: Emergency Provider Emergency Medicine; PCP Family Medicine
DX: R07.9 Chest pain, unspecified (principal); R10.31 Right lower quadrant pain; Z87.442 Personal history of urinary calculi; Z90.49 Acquired absence of other specified parts of digestive tract; Z90.710 Acquired absence of both cervix and uterus
CPT/HCPCS: 71045; 74177; 80053; 81001; 83690; 84484; 85025; 93005; 99285; Q9967; A4216

== ENCOUNTER 2021-02-12 13:57 | Emergency (ER) | payer OTHER, MEDICARE, SELFPAY ==
[2021-02-12 13:58] VITALS: BP 147/85; PULSE 94; RESP 16; TEMP 36.2; O2SAT 97; BMI 39.6
--- NOTE | 2021-02-12 14:05 | RAD_ITS ---
STUDY: X-RAY CHEST REASON FOR EXAM: Female, 70 years old. Cough. TECHNIQUE: Single AP portable view of the chest. COMPARISON: 06/20/2020. FINDINGS: Mild linear left retrocardiac stranding/scarring. No focal infiltrate is seen. There is no demonstrated pleural abnormality. Normal size heart. Normal mediastinum and irvin. Normal visualized pulmonary arteries. Normal visualized aortic arch and descending thoracic aorta. Mild dextroscoliosis which could be positional. Normal visualized ribs, clavicles, and shoulders. There is no demonstrated abnormality of the visualized soft tissue structures of the upper abdomen. RAD/Chest 1 View (Portable) IMPRESSION: No active pulmonary disease. Electronically Signed: Clem Manning MD at 15:05 EDT Tel , Service support ,
--- NOTE | 2021-02-12 14:05 | EKG12_ITS ---
Test Reason : SOB Blood Pressure : / mmHG Vent. Rate : 080 BPM Atrial Rate : 080 BPM P-R Int : 138 ms QRS Dur : 082 ms QT Int : 370 ms P-R-T Axes : 059 063 013 degrees QTc Int : 426 ms Normal sinus rhythm Normal ECG Confirmed by HIRAM NARVAEZ, ROSA M ([id number]), graphic editor DELANO GODFREY ([id number]) on 02/16/2021 8:30:32 AM Referred By: Confirmed By:ROSA M GANDHI MD
[2021-02-12 14:07] VITALS: O2SAT 97
--- NOTE | 2021-02-12 14:11 | ED.VIS.GEN ---
History of Present Illness Chief Complaint: Shortness of Breath Informant: Patient Onset: Days - Onset Context: Sudden Onset Timing: Continuous Quality: Nasal congestion, loss of smell, dyspnea and slight cough Location: Respiratory Current Severity: Mild Maximum Severity: Moderate Worsened by: Possibly exertion Relieved by: Nothing Associated Symptoms: Bifrontal headache and subjective fever Narrative: Patient is a 70-year-old woman who still works was sent to the emergency department because of upper respiratory symptoms with loss of smell. Onset of illness . She has had no documented fever. She denies double vision, blurred vision or loss of vision. She denies ringing in ears or decreased hearing. She denies throat pain. She does report slight nonproductive cough. She denies orthopnea or PND. She denies abdominal pain, nausea, vomiting or diarrhea. She denies dysuria, frequency or hematuria. She does report myalgias. She denies joint swelling. She denies rash. She denies neurologic symptoms. She does complain of neck pain but not stiffness. Prior similar symptoms: No Recent Illness/Hospitalization: No - Past Medical History (1) History of anxiety Status: Acute Past Medical History - Allergies and Home Meds Allergies/Adverse Reactions: Allergies hydrocodone [From Vicodin] Allergy (Verified 06/20/20 15:05) Chest tightness morphine Allergy (Verified 06/20/20 15:05) Shortness of breath CHOLESTERAL MEDICATION Adverse Reaction (Uncoded 06/20/20 15:05) Other ACHE ALL OVER Primary Care Physician: Korey Ferguson III, MD [Primary Care Provider] - Prior records reviewed: Yes Surgical History: appendectomy, cholecystectomy, hysterectomy Lives: Alone Smoking Status: Never smoker Alcohol: None Drugs: None Review of Systems General: Denies: Chills, Fever, Malaise, Subjective, Sweats Eyes: Denies: Visual changes - bilaterally, Blurred Vision - bilaterally ENT: Reports: Rhinorrhea. Denies: Bilateral ear pain, Sore throat Cardiovascular: Denies: Chest pain, Palpitations Respiratory: Reports: Dyspnea, Cough, Dyspnea on exertion. Denies: Sputum, Orthopnea, Paroxysmal nocturnal dyspnea Gastrointestinal: Denies: Abdominal pain, Nausea, Vomiting, Diarrhea, Melena, Hematochezia Genitourinary: Denies: Dysuria, Hematuria, Frequency Musculoskeletal: Reports: Myalgias, Neck pain. Denies: Arthralgias, Back pain, Swelling, Extremity Pain, -, - Skin: Denies: Rash, Wounds Neurological: Reports: Headache. Denies: Weakness, Parasthesia, Numbness Psych: Reports: Anxiety - History of anxiety and presentation takes Cymbalta. Endocrine: Denies: Polyuria, Polydipsia Hematologic: Denies: Easy bruising, Easy bleeding Physical Exam Vital Signs/Narrative: Vital Signs Temp Pulse Resp BP Pulse Ox 02/12/21 13:58 97.1 F L 94 16 147/85 H 97 Inital Vital Signs reviewed: Yes General: Well nourished, Well developed, No Acute Distress Head: Normocephalic, Atraumatic Eyes: Perrl, EOMI ENT: Moist mucous membranes, No rhinorrhea Neck: Supple, Nontender, No lymphadenopathy, No JVD Cardiovascular: Regular rate, Regular rhythm, No murmurs, Normal S1, Normal S2 Respiratory: No distress, CTA bilaterally, Chest nontender Abdomen: Soft, Nontender, Nondistended, Normal bowel sounds Back: Nontender, Normal Inspection Extremities: Nontender, No edema Skin: Normal color, No rash Neurological: Alert, Oriented x3, Cranial nerves II-XII grossly intact, Normal Strength, Normal Sensation Psychological: Normal affect, Normal Mood Diagnostic/Tx/Re-eval Chest X-Ray - ED: 1 View, Read by ED Physician, Normal, Heart, Lungs, Mediastinum, Bony Structures, No Acute Disease, - - The portable chest x-ray was interpreted by me at 1428 Impressions Chest X-Ray 02/12/21 14:05 IMPRESSION: No active pulmonary disease. Electronically Signed: Clem Manning MD at 15:05 EDT Tel , Service support , 02/12/21 14:05 Chest 1 View (Portable) [RAD] Stat 02/12/21 14:41 Mucosa - Nose SARS-CoV-2 Antigen (Rapid) - Final Laboratory Results 02/12/21 02/12/21 14:42 14:42 WBC 6.3 RBC 4.56 Hgb 13.3 Hct 40.9 MCV 89.7 MCH 29.2 MCHC 32.5 RDW Std Deviation 43.8 RDW Coeff of Nuvia 13.2 Plt Count 240 MPV 10.6 Immature Gran % (Auto) 0.500 Neut % (Auto) 58.5 Lymph % (Auto) 28.3 [place] % (Auto) 9.9 Eos % (Auto) 1.7 Baso % (Auto) 1.1 H Absolute Neuts (auto) 3.7 Absolute Lymphs (auto) 1.78 Nucleated RBC % 0 Sodium 139 Potassium 3.8 Chloride 107 Carbon Dioxide 26.0 Anion Gap 6 BUN 15 Creatinine 0.75 Estim Creat Clear Calc 41.40 Est GFR (MDRD) Af Amer 98 Est GFR (MDRD) Non-Af 81 BUN/Creatinine Ratio 20.0 Glucose 119 H Calcium 8.5 Total Bilirubin 0.30 AST 23 ALT 40 Alkaline Phosphatase 76 Total Protein 6.8 Albumin 3.4 Globulin 3.4 Albumin/Globulin Ratio 1.0 CBC is unremarkable. Comprehensive metabolic panel is remarkable for slight elevation in glucose. Chest x-ray was negative. Covid test was negative. - EKG Initial EKG Interpretation: Sinus Rhythm - The EKG is normal with a sinus rhythm of 80. [place] interval is 100 a 38 ms. QRS duration 82 ms. QT duration 370 ms. [place] is normal. ED Disposition - Plan for ED Patient: Disposition: Home or Assisted Living Diagnosis: Upper respiratory infection with cough and congestion Instructions: ED URI, Viral, No Abx (Adult) Referrals: Korey Ferguson III, MD [Primary Care Provider] - 1 Week if not improving
[2021-02-12 14:24] VITALS: BP 146/98; PULSE 79; PULSE 82; RESP 16; TEMP 36.2; O2SAT 96; O2SAT 98
[2021-02-12 14:45] VITALS: O2SAT 96
[2021-02-12 14:54] LABS: Absolute Lymphocyte Count 1.78 X10^3/uL (0.83-4.51); Absolute Neutrophil Count 3.7 X10^3/uL (2.0-7.7); Basophil# 0.07 X10^3/uL; Basophil% 1.1 % (0-1); Eosinophil# 0.11 X10^3/uL; Eosinophils% 1.7 % (0-5); Hematocrit 40.9 % (37-47); Hemoglobin 13.3 g/dL (12.0-15.0); Lymphocyte # 1.78 X10^3/ul (0.83-4.51); Lymphocyte % 28.3 % (19-41); Mean Corp Hgb Conc 32.5 g/dL (32-36); Mean Corpuscular Hgb 29.2 pg (27.0-32.0); Mean Corpuscular Volume 89.7 fL (81-99); Mean Platelet Vol. 10.6 fl (6.2-12.0); Monocyte# 0.62 X10^3/uL; Monocyte% 9.9 % (0-10); NRBC Flagged by Analyzer 0 % (0-5); Neutrophil # 3.68 X10^3/uL (2.7-7.7); Neutrophil % 58.5 % (47-70); Platelet Count 240 K/mm3 (150-450); RBC Distribution Width CV 13.2 % (11.6-14.6); RBC Distribution Width SD 43.8 fl (35.1-43.9); Red Blood Count 4.56 M/mm3 (4.2-5.4); White Blood Count 6.3 K/mm3 (4.4-11.0)
[2021-02-12 15:00] VITALS: BP 155/100; PULSE 77; RESP 18; TEMP 36.3; O2SAT 98
[2021-02-12 15:08] LABS: AST(SGOT) 23 U/L (15-37); Alanine Aminotransfer ALT/SGPT 40 U/L (13-56); Albumin, Serum 3.4 g/dL (3.2-5.0); Alkaline Phosphatase 76 U/L (45-117); Anion Gap 6 (5-15); BUN 15 mg/dL (7-18); Calcium,Total 8.5 mg/dL (8.5-10.1); Chloride 107 mmol/L (98-107); Creatinine, Serum 0.75 mg/dL (0.55-1.02); EST Glomerular Filtration Rate 81 mL/min (>60); Est Glom Filt Rate - Afr Amer 98 mL/min (>60); Globulin 3.4 g/dL (2.2-4.2); Glucose 119 mg/dL (74-106); Potassium 3.8 mmol/L (3.5-5.1); Protein, Total 6.8 g/dL (6.4-8.2); Sodium Level 139 mmol/L (136-145)
[2021-02-12 15:21] LABS: Lactic Acid 1.9 mmol/L (0.4-1.9)
== END 2021-02-12 15:30 | disposition home or self-care (01) ==
PROVIDERS: Emergency Provider Emergency Medicine; PCP Family Medicine
DX: J06.9 Acute upper respiratory infection, unspecified (principal)
CPT/HCPCS: 71045; 80053; 83605; 85025; 87426; 93005; 99284

== ENCOUNTER 2021-04-09 13:14 | Observation (INO) | payer OTHER, MEDICARE, SELFPAY ==
[2021-04-09] VITALS (9 sets, daily range): BP systolic 117–147; BP diastolic 58–108; PULSE 68–76; RESP 14–19; TEMP 36.3–36.6; O2SAT 96–99; BMI 36.3; BMI 39.3
--- NOTE | 2021-04-09 13:16 | EKG12_ITS ---
Test Reason : CP Blood Pressure : / mmHG Vent. Rate : 072 BPM Atrial Rate : 072 BPM P-R Int : 146 ms QRS Dur : 082 ms QT Int : 390 ms P-R-T Axes : 054 053 011 degrees QTc Int : 427 ms Normal sinus rhythm with sinus arrhythmia Low voltage QRS Borderline ECG Confirmed by YOSEPH NARVAEZ, DENYS ([id number]), map editor DELANO GODFREY ([id number]) on 04/11/2021 10:40:27 A M Referred By: ATILIO Confirmed By:JOHN HAMEED MD
--- NOTE | 2021-04-09 13:16 | RAD_ITS ---
STUDY: X-RAY CHEST REASON FOR EXAM: Female, 71 years old. Chest pain TECHNIQUE: Single AP portable view of the chest. COMPARISON: 02/12/2021. FINDINGS: No focal infiltrate is seen. Left retrocardiac stranding/scarring. There is no demonstrated pleural abnormality. There is borderline cardiomegaly. Normal mediastinum and irvin. Normal visualized pulmonary arteries. Mild tortuosity of the thoracic aorta. Stable osseous structures. There is no demonstrated abnormality of the visualized soft tissue structures of the upper abdomen. RAD/Chest 1 View (Portable) IMPRESSION: No active pulmonary disease. Electronically Signed: Clem Manning MD at 15:02 EDT Tel , Service support ,
--- NOTE | 2021-04-09 13:34 | EX.ED.DYSGE1 ---
HPI History of Present Illness Chief Complaint: Chest Pain Narrative Narrative: Patient presents complaint of chest pressure radiating to her jaw that occurred today when she was sitting down watching TV she is had similar intermittent episodes but this 1 lasted about 15 or 20 minutes resolve spontaneously, she has high cholesterol but no history of [place] PE or DVT she has a strong family history for CAD with aunts and father having CAD and early heart disease. She said no fever no cough no coronavirus bowel and bladder habits are unremarkable she did not exert herself anyway today PFSH PFSH Home Medications duloxetine 20 mg PO DAILY 08/22/18 [History Last Taken Unknown] omeprazole 20 mg PO QODAY 11/08/18 [History Last Taken Unknown] Allergy/AdvReac Type Severity Reaction Status Date / Time hydrocodone [From Vicodin] Allergy Chest Verified 04/09/21 13:17 tightness morphine Allergy Shortness Verified 04/09/21 13:17 of breath CHOLESTERAL MEDICATION AdvReac Other Uncoded 04/09/21 13:17 Social History Smoking Status: Never smoker ROS ROS ED ROS Narrative Chest pain to the jaw as above Constitutional Constitutional ED: Reports subjective, sweats and other; Denies chills, fever(s) or weight loss Eyes Eyes: Denies blurry vision or change in vision ENT ENT ED: Denies ear pain Cardiovascular Cardiovascular: Denies chest pain or palpitations Respiratory/Chest Respiratory/Chest: Denies dyspnea Gastrointestinal Gastrointestinal: Denies abdominal pain, nausea or vomiting Genitourinary Genitourinary ED: Denies dysuria or hematuria Musculoskeletal Musculoskeletal: Denies arthralgias or myalgias Integumentary Reports rash; Denies abscess Neurologic Neurologic: Denies weakness Psychiatric Psychiatric: Denies anxiety or depression Endocrine Endocrinology: Denies polydipsia or polyuria Allergic/Immunologic Allergic/Immunologic ED: Denies urticaria EXAM Physical Exam Narrative Exam Narrative: Head neck chest abdomen vital signs unremarkable see below no distress no symptoms now Const Vital Signs: 04/09/21 13:15 04/09/21 13:34 04/09/21 13:52 Temperature 97.4 F L Temperature Source Temporal Pulse Rate 74 68 Respiratory Rate 14 15 Blood Pressure 145/82 H 132/71 H Blood Pressure Mean 103 91 Pulse Ox 96 97 96 Oxygen Delivery Method Room Air Room Air Room Air Positive well developed General Appearance ED: well developed HEENT Reports normocephalic Negative for trauma Eyes EOMs intact bilaterally Neck supple Chest Wall inspection of chest normal Resp normal respiratory effort Cardio regular rate GI non-tender and non-distended Back/Spine Back/Spine Narrative: unremarkable Extremity normal to inspection Neuro oriented x3 and CN's II-XII intact bilaterally Sensorium / Orientation: alert Psych mental status grossly normal Skin no rashes or lesions noted MDM MDM MDM Narrative Medical decision making narrative: EKG shows a sinus rhythm no acute injury pattern this time given all the above ED screen evaluation 1 view chest x-ray to my review shows nothing acute normal cardiovascular structures see the radiology report, patient's ED screening labs troponin were negative she is resting company bed discussed inpatient versus outpatient management given the severe nature of the chest pressure into her jaw she would prefer to be admitted I spoke with hospitalist arrange for admission for further management Admit stable Final impression chest pressure into the jaw possible acute coronary syndrome Lab Data Labs: Laboratory Results - last 24 hr 04/09/21 04/09/21 04/09/21 13:50 13:50 13:50 WBC 6.1 RBC 4.48 Hgb 13.4 Hct 39.7 MCV 88.6 MCH 29.9 MCHC 33.8 RDW Std Deviation 40.7 RDW Coeff of Nuvia 12.5 Plt Count 203 MPV 10.9 Immature Gran % (Auto) 0.300 Neut % (Auto) 59.2 Lymph % (Auto) 28.6 [place] % (Auto) 9.9 Eos % (Auto) 1.3 Baso % (Auto) 0.7 Absolute Neuts (auto) 3.6 Absolute Lymphs (auto) 1.74 Nucleated RBC % 0 Sodium 140 Potassium 3.8 Chloride 106 Carbon Dioxide 27.0 Anion Gap 7 BUN 12 Creatinine 0.84 Estim Creat Clear Calc 48.58 Est GFR (MDRD) Af Amer 86 Est GFR (MDRD) Non-Af 71 BUN/Creatinine Ratio 14.4 Glucose 104 Calcium 8.5 Troponin I < 0.015 B-Natriuretic Peptide 47.8 Discharge Plan Triage Chief Complaint: Chest Pain ED Provider: Duc Evans Dx/Rx/DC Orders Prescriptions: No Action duloxetine 20 MG capsule 20 mg PO DAILY RF: 0 omeprazole 20 MG Tab.Rap.Dr 20 mg PO QODAY RF: 0 Primary Care Provider: Casey Phillips NP
[2021-04-09 14:07] LABS: Absolute Lymphocyte Count 1.74 X10^3/uL (0.83-4.51); Absolute Neutrophil Count 3.6 X10^3/uL (2.0-7.7); Basophil# 0.04 X10^3/uL; Basophil% 0.7 % (0-1); Eosinophil# 0.08 X10^3/uL; Eosinophils% 1.3 % (0-5); Hematocrit 39.7 % (37-47); Hemoglobin 13.4 g/dL (12.0-15.0); Lymphocyte # 1.74 X10^3/ul (0.83-4.51); Lymphocyte % 28.6 % (19-41); Mean Corp Hgb Conc 33.8 g/dL (32-36); Mean Corpuscular Hgb 29.9 pg (27.0-32.0); Mean Corpuscular Volume 88.6 fL (81-99); Mean Platelet Vol. 10.9 fl (6.2-12.0); Monocyte% 9.9 % (0-10); NRBC Flagged by Analyzer 0 % (0-5); Neutrophil % 59.2 % (47-70); Platelet Count 203 K/mm3 (150-450); RBC Distribution Width CV 12.5 % (11.6-14.6); RBC Distribution Width SD 40.7 fl (35.1-43.9); Red Blood Count 4.48 M/mm3 (4.2-5.4); White Blood Count 6.1 K/mm3 (4.4-11.0)
[2021-04-09 14:23] LABS: Anion Gap 7 (5-15); BUN 12 mg/dL (7-18); BUN/Creat Ratio 14.4 RATIO (10-20); Calcium,Total 8.5 mg/dL (8.5-10.1); Chloride 106 mmol/L (98-107); Creatinine, Serum 0.84 mg/dL (0.55-1.02); EST Glomerular Filtration Rate 71 mL/min (>60); Est Glom Filt Rate - Afr Amer 86 mL/min (>60); Estimated Creatinine Clearance 48.58 ml/min; Glucose 104 mg/dL (74-106); Potassium 3.8 mmol/L (3.5-5.1); Sodium Level 140 mmol/L (136-145)
[2021-04-09 14:28] LABS: BNP,B-Type NATRIURETIC PEPTIDE 47.8 pg/mL (0-100)
--- NOTE | 2021-04-09 15:08 | PCM.HP.STD ---
Documented by User: ROSANA Koch 04/09/21 15:19 HPI - General HPI Narrative MAGO ANDERSON, is a 71 F who presents with chest pain that started approximately 9 AM this morning. Patient states that she was sitting on the couch watching TV when it started. Patient reports left-sided substernal chest pain with concurrent radiation to both sides of jaw, numbness and tingling to left arm and nausea. Patient states pain was 7 out of 10 and lasted approximately 10 to 15 minutes. Patient denies recent injury to area and reports onset was sudden. Patient denies fever, chills, shortness of breath, cough, vomiting. [facility] Medical History Depression Fibromyalgia GERD (gastroesophageal reflux disease) Home Medications duloxetine 60 mg PO DAILY 08/22/18 [History Last Taken Unknown] omeprazole 20 mg PO BID 11/08/18 [History Last Taken Unknown] amitriptyline 25 mg PO QHS 04/09/21 [History Last Taken Unknown] Allergy/AdvReac Type Severity Reaction Status Date / Time hydrocodone [From Vicodin] Allergy Chest Verified 04/09/21 13:17 tightness morphine Allergy Shortness Verified 04/09/21 13:17 of breath CHOLESTERAL MEDICATION AdvReac Other Uncoded 04/09/21 13:17 Social History Smoking Status: Never smoker ROS Constitutional Constitutional: Denies anorexia, chills, fatigue, malaise or weakness Cardiovascular Cardiovascular: Reports chest pain at rest, nausea, numbness in extremities and radiating jaw, neck or arm pain; Denies dizziness, edema or palpitations Respiratory/Chest Respiratory/Chest: Denies cough, hemoptysis or wheezing Gastrointestinal Gastrointestinal: Reports nausea; Denies abdominal pain, constipation, diarrhea or vomiting Genitourinary Genitourinary: Denies dysuria Musculoskeletal Musculoskeletal: Denies back pain, extremity pain, joint pain or joint stiffness Integumentary Integumentary: Denies dry skin Neurologic Neurologic: Denies abnormal gait, abnormal speech, confusion or dizziness Psychiatric Psychiatric: Denies anxiety or depression Endocrine Endocrinology: Denies change in body appearance Hematologic/Lymphatic Hematologic/Lymphatic: Denies easy bleeding or easy bruising Vital Signs Vital Signs Vital Signs: 04/09/21 13:15 04/09/21 13:34 04/09/21 13:52 Temperature 97.4 F L Temperature Source Temporal Pulse Rate 74 68 Respiratory Rate 14 15 Respiratory Effort Blood Pressure 145/82 H 132/71 H Blood Pressure Mean 103 91 Pulse Ox 96 97 96 Oxygen Delivery Method Room Air Room Air Room Air 04/09/21 14:59 04/09/21 15:00 Temperature 97.4 F L Temperature Source Temporal Pulse Rate 69 70 Respiratory Rate 19 H 19 H Respiratory Effort Normal Non-Labored Blood Pressure 147/108 H 147/108 H Blood Pressure Mean 121 121 Pulse Ox 97 99 Oxygen Delivery Method Room Air Room Air Weight Weight: 198 lb 6.656 oz Body Mass Index (BMI) 36.3 Physical Exam Const alert, oriented x3 and no apparent distress General Appearance: cooperative HEENT normocephalic and head/scalp atraumatic Eyes conjunctivae normal and no scleral icterus Neck no lymphadenopathy, supple and no JVD General: trachea midline Resp normal respiratory effort, normal air movement and clear to auscultation bilaterally Cardio regular rate, regular rhythm, S1 normal heart sound and S2 normal heart sound GI normal to inspection, nondistended, normoactive bowel sounds, soft to palpation and non-tender Extremity normal capillary refill and no clubbing, cyanosis or edema General Extremity: no tenderness to palpation of joints or extremities Skin General Skin Exam: no breakdown and turgor normal Lesions: no lesions Rashes: no rashes Neuro oriented x3, moves all extremities and no focal motor deficits Psych thought process normal, cooperative and affect normal Appearance: appropriate Results Lab / Micro Data Result Diagrams: 04/09/21 13:50 04/09/21 13:50 Labs: Laboratory Results - last 24 hr 04/09/21 04/09/21 04/09/21 13:50 13:50 13:50 WBC 6.1 RBC 4.48 Hgb 13.4 Hct 39.7 MCV 88.6 MCH 29.9 MCHC 33.8 RDW Std Deviation 40.7 RDW Coeff of Nuvia 12.5 Plt Count 203 MPV 10.9 Immature Gran % (Auto) 0.300 Neut % (Auto) 59.2 Lymph % (Auto) 28.6 [place] % (Auto) 9.9 Eos % (Auto) 1.3 Baso % (Auto) 0.7 Absolute Neuts (auto) 3.6 Absolute Lymphs (auto) 1.74 Nucleated RBC % 0 Sodium 140 Potassium 3.8 Chloride 106 Carbon Dioxide 27.0 Anion Gap 7 BUN 12 Creatinine 0.84 Estim Creat Clear Calc 48.58 Est GFR (MDRD) Af Amer 86 Est GFR (MDRD) Non-Af 71 BUN/Creatinine Ratio 14.4 Glucose 104 Calcium 8.5 Troponin I < 0.015 B-Natriuretic Peptide 47.8 Radiology Impression Chest X-Ray 04/09/21 13:16 IMPRESSION: No active pulmonary disease. Electronically Signed: Clem Manning MD at 15:02 EDT Tel , Service support , Assessment & Plan Assessment/Plan (1) Chest pain in adult: PLAN: 1. Chest pain -Due to sudden onset in nature with chest pain will admit to PCU for cardiac monitoring. EKG in ER shows normal sinus rhythm. -Trend cardiac enzymes, initial negative -Cardiac heart healthy diet ordered -Oxygen therapy per protocol -Fasting lipid panel ordered for a.m. along with TSH -Nuclear stress test ordered for Sunday morning -Patient initiated on aspirin, Lipitor pending stress test results -As needed nitroglycerin ordered for chest pain -Vital signs per protocol trend BP and heart rate 2. Anxiety and depression -Continue amitriptyline and duloxetine 3. GERD -Pantoprazole ordered DVT Prophylaxis-subcu Lovenox This patient was seen by Stella Patel NP-C under the supervision of Dr. Duncan. Documented by User: Dr. Petr Duncan MD 04/09/21 15:40 HPI - General General Date of Admission: 04/09/21 Chief Complaint: Atypical chest pain HPI Narrative This 79-year-old female came to ER for chest pain today in the morning. She says she was watching TV, laying down when suddenly she felt her chest is clamped for about 15 minutes with radiation to jaws. She is also short of breath and dizzy. She felt very scared. She is further said she gets short of breath on exertion walking 1 block and climbing 1 flight of stairs for last 1 years. She had a stress test about 10 years ago and was negative. She has history of GERD and recently omeprazole dose has been doubled by PCP. Twelve-lead EKG done in the ER shows normal sinus rhythm, low voltage QRS at 72 bpm. QTc 427 ms. Chest x-ray unremarkable. Patient was given aspirin in ER and further admitted. Denies prior history of coronary artery disease. Her father has history of HI/coronary artery disease diagnosed at the age of 65/66 and her mom had a stroke in her 70s. MARIELA risk score is 1. [facility] Medical History Depression Fibromyalgia GERD (gastroesophageal reflux disease) Home Medications duloxetine 60 mg PO DAILY 08/22/18 [History Last Taken Unknown] omeprazole 20 mg PO BID 11/08/18 [History Last Taken Unknown] amitriptyline 25 mg PO QHS 04/09/21 [History Last Taken Unknown] Allergy/AdvReac Type Severity Reaction Status Date / Time hydrocodone [From Vicodin] Allergy Chest Verified 04/09/21 13:17 tightness morphine Allergy Shortness Verified 04/09/21 13:17 of breath CHOLESTERAL MEDICATION AdvReac Other Uncoded 04/09/21 13:17 Social History Smoking Status: Never smoker ROS ROS Narrative Constitutional: Reports fatigue and weakness. HEENT: Reports systems reviewed and no addt'l complaints, except as documented Respiratory/Chest: Chronic mild shortness of breath with exertion. No shortness of breath at rest Gastrointestinal: Denies coffee ground emesis, hematemesis or vomiting Genitourinary: Denies burning urination. No new lower urinary symptoms Musculoskeletal: Reports joint pain and limited range of motion Neurologic: Denies seizure-like activity skin: No ulcer. No rash Endocrinology: Reports systems reviewed and no addt'l complaints, except as documented Hematologic/Lymphatic: Reports systems reviewed and no addt'l complaints, except as documented Rest 12 ROS are negative except as mentioned in HPI Physical Exam Narrative Physical exam General: Alert, Oriented x3, Cooperative HEENT: Atraumatic, PERRLA, EOMI, Normocephalic Oral: No Gingival or Mucosal Lesions/ Ulcerations Neck: Supple, No JVD, Negative Carotid Bruits Lungs: Air entry equal in bilateral lung bases. No crepitation/rhonchi Cardiovascular: Regular rate, Regular Rhythm, Normal S1, Normal S2, No murmurs Abdomen: Bowel Sounds Present, Soft, Non Tender, Non-Distended : No renal angle tenderness. No suprapubic tenderness. Extremities: No edema, Capillary Refill Less than 3 Seconds Skin: No rashes, No breakdown Musculoskeletal: No Tenderness to Palpation of Joints or Extremities Neurological: Cranial nerves II-XII grossly intact, Deep Tendon Reflexes 2+/4 and Symmetrical, Neuro grossly intact Psych/Mental Status: Normal Affect, Appropriate. Results Lab / Micro Data Result Diagrams: 04/09/21 13:50 04/09/21 13:50 Assessment & Plan Assessment/Plan (1) Atypical chest pain: PLAN: This patient was seen in conjunction with JESSICA Douglas. I have independently interviewed and examined the patient and reviewed pertinent history, examination findings, laboratory and plan of management. I have reviewed the note and agree with the documented findings with the few additional points. In brief, patient is admitted for atypical chest pain. Patient is being admitted in PCU on cardiac/vascular sonographer. Serial troponin enzymes and EKG. If troponins are negative, patient will go for myocardial perfusion stress test patient understands she has to wait for Sunday for that. TSH and fasting profile tomorrow a.m. Blood pressure is elevated 147/108: Patient will need ambulatory BP monitoring to diagnosed hypertension. Further monitor blood pressure continues to be high, will start DANIEL inhibitor. Other comorbidities include anxiety and depression and GERD and fibromyalgia: Home medication reconciliation done. I have discussed my assessment with JESSICA Douglas and orders have been reviewed. Living will/advanced directive/end of life care: Patient does have living will or advanced directive. After discussion of benefits/risks procedures involved with full code, DNR CC arrest and DNR CC, the patient opted for DNR-CC Arrest with no intubation Patient does not want artificial life support including intubation, tube feed, ventilator and/chest compression, central venous catheter, vasopressor and DC shock if needed Total time spent in [id number] encounter in discussion of advanced directive 16 minutes. Charges/Coding Visit Charges OBSV E&M: 36374 Initial observation care L2 Procedures Hospitalists Procedures: 38295 Advncd Care Plan 30 Min
--- NOTE | 2021-04-09 15:45 | EKG12_ITS ---
Test Reason : AM EKG Blood Pressure : / mmHG Vent. Rate : 066 BPM Atrial Rate : 066 BPM P-R Int : 154 ms QRS Dur : 086 ms QT Int : 398 ms P-R-T Axes : 060 060 018 degrees QTc Int : 417 ms Normal sinus rhythm Low voltage QRS Borderline ECG When compared with ECG of 09-APR-2021 15:57, MANUAL COMPARISON REQUIRED, DATA IS UNCONFIRMED Confirmed by JT NARVAEZ, DANIEL ([id number]), leather colorer DELANO GODFREY ([id number]) on 04/12/2021 9:36:17 AM Referred By: CORRINE Confirmed By:DANIEL WATERS MD
[2021-04-09] MEDS: 0.9% Normal Saline 1,000 ML 75 ML IV (17:46)
[2021-04-09] MEDS: Enoxaparin 40 MG/0.4 ML Syringe SC (17:48)
[2021-04-09] MEDS: Lisinopril 5 MG Tablet PO (17:53)
[2021-04-09] MEDS: DULoxetine Hcl 20 MG Capsule PO (17:54)
[2021-04-09] MEDS: Amitriptyline 25 MG Tablet PO (21:43)
[2021-04-10] VITALS (10 sets, daily range): BP systolic 117–139; BP diastolic 64–81; PULSE 57–81; RESP 18; TEMP 36.7–36.8; O2SAT 95–97
[2021-04-10 06:21] LABS: Cholesterol 186 mg/dL (200); High Density Lipoprotein 45 mg/dL; Triglycerides 124 mg/dL; Very Low Density Lipoprotein 25 mg/dL (5-40)
[2021-04-10] MEDS: Aspirin E.C. 81 MG Tablet PO (09:04)
[2021-04-10] MEDS: Pantoprazole Sodium 20 MG Tablet PO (09:04)
[2021-04-10] MEDS: Enoxaparin 40 MG/0.4 ML Syringe SC (09:04)
[2021-04-10] MEDS: Lisinopril 5 MG Tablet PO (09:04)
[2021-04-10] MEDS: DULoxetine Hcl 20 MG Capsule PO (09:04)
--- NOTE | 2021-04-10 12:39 | PN.HOSP_ITS ---
Subjective Subjective The patient does not have chest pain or shortness of breath after admission. She is asymptomatic in regards to cardiopulmonary system. playground monitor shows sinus rhythm Objective Data Objective Data Vital Signs: Vital Signs Temp Pulse Resp BP Pulse Ox 98.0 F 81 18 139/66 H 96 04/10/21 09:00 04/10/21 11:00 04/10/21 09:00 04/10/21 09:00 04/10/21 09:00 Oxygen Delivery Method Room Air Weight: 215 lb 2.738 oz Body Mass Index (BMI) 39.3 Intake & Output: Intake and Output for Last 24 Hours 04/08/21 04/09/21 04/10/21 23:59 23:59 23:59 Intake Total 240 / 240 1240 / 1240 Balance 240 / 240 1240 / 1240 Lab / Micro Data Result Diagrams: 04/09/21 13:50 04/09/21 13:50 Labs: Laboratory Results - last 24 hr 04/09/21 04/09/21 04/09/21 13:50 13:50 13:50 WBC 6.1 RBC 4.48 Hgb 13.4 Hct 39.7 MCV 88.6 MCH 29.9 MCHC 33.8 RDW Std Deviation 40.7 RDW Coeff of Nuvia 12.5 Plt Count 203 MPV 10.9 Immature Gran % (Auto) 0.300 Neut % (Auto) 59.2 Lymph % (Auto) 28.6 [place] % (Auto) 9.9 Eos % (Auto) 1.3 Baso % (Auto) 0.7 Absolute Neuts (auto) 3.6 Absolute Lymphs (auto) 1.74 Nucleated RBC % 0 Sodium 140 Potassium 3.8 Chloride 106 Carbon Dioxide 27.0 Anion Gap 7 BUN 12 Creatinine 0.84 Estim Creat Clear Calc 48.58 Est GFR (MDRD) Af Amer 86 Est GFR (MDRD) Non-Af 71 BUN/Creatinine Ratio 14.4 Glucose 104 Calcium 8.5 Troponin I < 0.015 B-Natriuretic Peptide 47.8 Triglycerides Cholesterol LDL Cholesterol VLDL Cholesterol HDL Cholesterol TSH 04/09/21 04/09/21 04/10/21 17:04 19:53 05:20 WBC RBC Hgb Hct MCV MCH MCHC RDW Std Deviation RDW Coeff of Nuvia Plt Count MPV Immature Gran % (Auto) Neut % (Auto) Lymph % (Auto) [place] % (Auto) Eos % (Auto) Baso % (Auto) Absolute Neuts (auto) Absolute Lymphs (auto) Nucleated RBC % Sodium Potassium Chloride Carbon Dioxide Anion Gap BUN Creatinine Estim Creat Clear Calc Est GFR (MDRD) Af Amer Est GFR (MDRD) Non-Af BUN/Creatinine Ratio Glucose Calcium Troponin I < 0.015 < 0.015 B-Natriuretic Peptide Triglycerides 124 Cholesterol 186 LDL Cholesterol 116 VLDL Cholesterol 25 HDL Cholesterol 45 TSH 2.10 Radiography Diagnostic Testing: Radiology Impression Chest X-Ray 04/09/21 13:16 IMPRESSION: No active pulmonary disease. Electronically Signed: Clem Manning MD at 15:02 EDT Tel , Service support , Physical Exam Narrative Physical exam General: Alert, Oriented x3, Cooperative HEENT: Atraumatic, PERRLA, EOMI, Normocephalic Oral: No Gingival or Mucosal Lesions/ Ulcerations Neck: Supple, No JVD, Negative Carotid Bruits Lungs: Air entry equal in bilateral lung bases. No crepitation/rhonchi Cardiovascular: Regular rate, Regular Rhythm, Normal S1, Normal S2, No murmurs Abdomen: Bowel Sounds Present, Soft, Non Tender, Non-Distended : No renal angle tenderness. No suprapubic tenderness. Extremities: No edema, Capillary Refill Less than 3 Seconds Skin: No rashes, No breakdown Musculoskeletal: No Tenderness to Palpation of Joints or Extremities Neurological: Cranial nerves II-XII grossly intact, Deep Tendon Reflexes 2+/4 and Symmetrical, Neuro grossly intact Psych/Mental Status: Normal Affect, Appropriate. Assessment & Plan Assessment/Plan (1) Atypical chest pain: PLAN: The patient is admitted for atypical chest pain. 1. Atypical chest pain: Acute coronary syndrome ruled out. playground monitor shows sinus rhythm. Serial troponin enzymes negative. Pharmacological myocardial perfusion stress test is ordered. Fasting profile shows LDL 116 and triglyceride 124 and offered statin. Patient states she developed myalgia and itching on statin with atorvastatin in the past and doctor said not to take in future. TSH 2. Blood pressure is elevated 147/108, possible hypertension: Patient will need ambulatory BP monitoring to diagnosed hypertension. Blood pressure is better controlled on empiric lisinopril 5 mg daily. 3. Other comorbidities include anxiety and depression and GERD and fibromyalgia: Home medication reconciliation done. Living will/advanced directive/end of life care: Patient does have living will o r advanced directive. After discussion of benefits/risks procedures involved with full code, DNR CC arrest and DNR CC, the patient opted for DNR-CC Arrest with no intubation Patient does not want artificial life support including intubation, tube feed, ventilator and/chest compression, central venous catheter, vasopressor and DC shock if needed Total time spent in [id number] encounter in discussion of advanced directive 16 minutes. Laboratory Results 04/09/21 13:50: WBC 6.1, RBC 4.48, Hgb 13.4, Hct 39.7, MCV 88.6, MCH 29.9, MCHC 33.8, RDW Std Deviation 40.7, RDW Coeff of Nuvia 12.5, Plt Count 203, MPV 10.9, Immature Gran % (Auto) 0.300, Neut % (Auto) 59.2, Lymph % (Auto) 28.6, [place] % (Auto) 9.9, Eos % (Auto) 1.3, Baso % (Auto) 0.7, Absolute Neuts (auto) 3.6, Absolute Lymphs (auto) 1.74, Nucleated RBC % 0 04/09/21 13:50: Sodium 140, Potassium 3.8, Chloride 106, Carbon Dioxide 27.0, Anion Gap 7, BUN 12, Creatinine 0.84, Estim Creat Clear Calc 48.58, Est GFR (MDRD) Af Amer 86, Est GFR (MDRD) Non-Af 71, BUN/Creatinine Ratio 14.4, Glucose 104, Calcium 8.5, Troponin I < 0.015 04/09/21 13:50: B-Natriuretic Peptide 47.8 04/09/21 17:04: Troponin I < 0.015 04/09/21 19:53: Troponin I < 0.015 04/10/21 05:20: Triglycerides 124, Cholesterol 186, LDL Cholesterol 116, VLDL Cholesterol 25, HDL Cholesterol 45, TSH 2.10 Charges/Coding Visit Charges OBSV E&M: 85370 Subsequent observation care L2
[2021-04-10] MEDS: Amitriptyline 25 MG Tablet PO (21:01)
[2021-04-11 03:00] VITALS: BP 123/61; PULSE 59; PULSE 62; RESP 18; TEMP 36.9; O2SAT 94
--- NOTE | 2021-04-11 05:55 | EKG12_ITS ---
Test Reason : Blood Pressure : / mmHG Vent. Rate : 066 BPM Atrial Rate : 066 BPM P-R Int : 148 ms QRS Dur : 082 ms QT Int : 414 ms P-R-T Axes : 045 044 015 degrees QTc Int : 434 ms Normal sinus rhythm Normal ECG When compared with ECG of 09-APR-2021 13:25, MANUAL COMPARISON REQUIRED, DATA IS UNCONFIRMED Confirmed by JT NARVAEZ, DANIEL ([id number]), medical editor DELANO GODFREY ([id number]) on 04/12/2021 9:38:26 AM Referred By: CORRINE Confirmed By:DANIEL WATERS MD
[2021-04-11 06:32] VITALS: BP 145/70; PULSE 62; RESP 18; TEMP 36.8; O2SAT 95
[2021-04-11] MEDS: Lisinopril 5 MG Tablet PO (06:36)
[2021-04-11] MEDS: 0.9% Saline Lock 10 ML Syringe IV (06:36)
[2021-04-11] MEDS: Aspirin E.C. 81 MG Tablet PO (06:39)
[2021-04-11 07:15] VITALS: PULSE 62
[2021-04-11 07:50] VITALS: O2SAT 96
--- NOTE | 2021-04-11 08:45 | NURSING ---
Patient off unit to stress test at this time.
--- NOTE | 2021-04-11 10:53 | CASEMGMT ---
This RN CM to room with KEENAN form but pt is out of the dept for testing. CM to f/u once pt returns. SStaten RN CM
[2021-04-11 11:30] VITALS: BP 123/67; PULSE 84; RESP 16; TEMP 36.1; O2SAT 97
--- NOTE | 2021-04-11 11:30 | STRESSREP ---
Stress Test Report Pharmacologic myocardial perfusion stress test. 71-year-old lady with a history of chest pain. Stress protocol: Rest EKG demonstrates normal sinus rhythm with a rate of 71 bpm normal intervals are noted resting blood pressures 122/80 mmHg. 0.4 mg of regadenoson was infused per usual protocol followed by rapid venous saline flush injection continuous EKG monitoring was performed. The maximum heart rate attained was 89 bpm which was 59% of maximum corrected heart rate the maximum workload was 1 metabolic equivalent. At rest there were no ST or T wave changes noted to suggest abnormal flow reserve and at peak infusion nonspecific ST changes were noted. No clinical angina was noted. The resting blood pressure was 122/80 mmHg. Myocardial perfusion protocol. 11.0 mCi of technetium 99m sestamibi was injected at rest. 0.4 mg regadenoson was infused per usual protocol. At peak infusion 33.0 mCi of technetium 99m sestamibi was injected stress images were obtained stress and rest images were reconstructed and compared in the short axis vertical long horizontal long axis. Gated images were also obtained to Perfusion SPECT analysis: Review of the stress images demonstrate normal uptake of tracer noted in all areas of the myocardium. The resting images similarly demonstrate normal uptake of tracer noted in all areas of the myocardium. No areas of reversibility are noted suggest ischemia no previous infarct is noted. Gated SPECT analysis: The gated ejection fraction is noted to be 88%. Conclusion: Normal pharmacologic myocardial perfusion stress test. Preserved ejection fraction.
--- NOTE | 2021-04-11 13:20 | DS.PCM_ITS ---
Providers Date of Admission: 04/09/21 Primary Care Physician: JUANITO CarreraC Reason For Visit: CHEST PAIN Diagnosis Discharge Diagnosis (1) Atypical chest pain: Status: Acute Code(s): R07.89 - Other chest pain Medications at Discharge Home Medications duloxetine 60 mg PO DAILY 08/22/18 omeprazole 20 mg PO BID 11/08/18 amitriptyline 25 mg PO QHS 04/09/21 Hospital Course Operations None Procedures Stress test (Negative pharmacological myocardial perfusion stress test) Summary of Care Provided Minutes Spent on Discharge: 20 Hospital Course: Mrs. Zheng is a 71-year-old white female who presented to the emergency department [facility] on 04/09/2021 complaining of chest pain. Upon presentation which she reported that the pain started at 9 AM on the morning of admission while she was sitting on the couch watching TV. She reported that it was left-sided substernal chest pain with concurrent radiation said both sides of the jaw numbness and tingling into the left arm and nausea. She reported the pain was 7 out of 10 and lasted approximately 10 to 15 min. She admitted to PCU and serial cardiac enzymes were obtained and were all negative. A stress test was performed and was found to be negative. Her initial blood pressure was mildly elevated but several repeat have been within normal range. She was initially started on 5 mg of lisinopril but I encouraged follow-up as an outpatient for blood pressure checks prior to initiating consistent antihypertensive regimen. A lipid panel was obtained and showed a cholesterol of 186, and LDL of 116, and HDL of 45 and triglycerides of 124. She was discharged home in stable condition and recommended to follow-up with her primary care physician. Of note she complained of some left upper extremity tingling and numbness that was intermittent in nature and does have history of cervical spine injury. This seems more consistent with cervical radiculopathy and I recommend if this does not subside in the next 5 to 7 days that she follow-up with her PCP with regards to this for outpatient physical therapy.\ Physical Exam Const alert, oriented x3, no apparent distress, no limitations, healthy appearing and well nourished Constitutional Narrative: Older white female, sitting up in bed, appears comfortable, nontoxic General Appearance: cooperative, comfortable, well kempt and well developed HEENT normocephalic and head/scalp atraumatic Eyes PERRL and EOMs intact bilaterally Neck no lymphadenopathy, supple and no JVD Resp normal respiratory effort, no retractions, no use of accessory muscles and clear to auscultation bilaterally Cardio regular rate, regular rhythm, S1 normal heart sound, S2 normal heart sound, no murmurs, no rub, no gallops, no clicks and no JVD GI normal to inspection, nondistended, normoactive bowel sounds, soft to palpation, non-tender and non-distended; Negative for hepatosplenomegaly Extremity normal to inspection, full ROM and no clubbing, cyanosis or edema Skin no rashes or lesions noted Neuro oriented x3, CN's II-XII intact bilaterally and moves all extremities Sensorium / Orientation: awake, alert, oriented to person, oriented to place and oriented to time Speech: speech normal Psych affect normal Psych Narrative: Mildly anxious Weight / BMI Weight Weight: 97.6 kg Body Mass Index (BMI) 39.3 ABG / Lab / Microbiology Data Result Diagrams: 04/09/21 13:50 04/09/21 13:50 D/C Instructions Discharge Diet: Low fat / Low cholesterol Discharge Activity: Return to Normal Activity Return to work on: 04/12/21 Lifting Restrictions: none Meaningful Use Info Meaningful Use Diagnoses (Choose all that apply): None applicable Discharge Plan Admission Admit Date/Time: 04/09/21 14:52 Attending Provider: Marissa Hoffman Primary Care Provider: Casey Phillips NP Instructions Patient Instructions: ED Chest Pain, Noncardiac Discharge Orders/Prescriptions Prescriptions: Continued duloxetine 20 MG capsule 60 mg PO DAILY RF: 0 omeprazole 20 MG tablet,disintegrat, delay rel 20 mg PO BID RF: 0 amitriptyline 25 mg tablet 25 mg PO QHS RF: 0 Referrals / Follow Up: Casey Phillips NP, [employer] [Primary Care Provider] - Disposition Disposition (needs filled in before D/C Order can be placed): Home, self care Charges/Coding Visit Charges Inpatient E&M: 61383 Disch Hosp
--- NOTE | 2021-04-11 13:20 | CASEMGMT ---
This RN CM to room with KEENAN form, explanation done-pt voices understanding, and signs KEENAN form. Pt has IP vs OBS booklet at bedside. Original to chart and copy to pt. SStscarlett RN CM
[2021-04-11 14:37] VITALS: BP 127/80; PULSE 87; RESP 18; TEMP 36.6; O2SAT 100
--- NOTE | 2021-04-11 14:38 | NURSING ---
patient states she will take her home meds when she gets home.
== END 2021-04-11 14:56 | disposition home or self-care (01) ==
LOC: ED 14:18 → PCU 17:54
PROVIDERS: Admitting Provider Internal Medicine; Emergency Provider Emergency Medicine; PCP Nurse Practitioner Family; Visit Provider Internal Medicine
DX: R07.89 Other chest pain (principal); E78.00 Pure hypercholesterolemia, unspecified; R20.0 Anesthesia of skin; R20.2 Paresthesia of skin; R03.0 Elevated blood-pressure reading, without diagnosis of hypertension; R11.0 Nausea; F32.9 Major depressive disorder, single episode, unspecified; M79.7 Fibromyalgia; K21.9 Gastro-esophageal reflux disease without esophagitis; R42 Dizziness and giddiness; R06.02 Shortness of breath; Z79.899 Other long term (current) drug therapy; Z66 Do not resuscitate
CPT/HCPCS: 36415; 71045; 78452; 80048; 80061; 83880; 84443; 84484; 85025; 93005; 93017; 96360; 96361; 96372; 99218; 99285; A9500; J7030; A4216; G0378; J2785

== ENCOUNTER 2022-07-14 10:41 | Emergency (ER) | payer MEDICARE, SELFPAY ==
[2022-07-14 10:42] VITALS: BP 146/82; PULSE 69; RESP 18; TEMP 36.1; O2SAT 99; BMI 37.5
--- NOTE | 2022-07-14 10:57 | CT_ITS ---
STUDY: CTA HEAD AND NECK WITH CONTRAST REASON FOR EXAM: Female, 72 years old. Severe headache neck pain nausea, SAH -- Negative unenhanced scan this week. Symptoms have started again. RADIATION DOSAGE (If Supplied By Facility): CTDIvol = ( 28.40 ) mGy, DLP = ( 1425.35 ) mGycm TECHNIQUE: CT angiography was performed with a multi-detector CT scanner. Data acquisition was obtained from the skull base through the vertex following intravenous administration of 100 mL. MIP images were reconstructed from the axial data set. Post-processing of the angiographic images was performed, with multiplanar reformation and 3D reconstruction. Individualized dose optimization techniques were used for this CT. COMPARISON: No relevant priors. FINDINGS: Normal bilateral petrous carotid arteries. Normal right cavernous carotid artery with a normal supraclinoid bifurcation. Normal left cavernous carotid artery with a normal supraclinoid bifurcation. Normal right A1 segment of the anterior cerebral artery. Normal left A1 segment of the anterior cerebral artery. Normal intact anterior communicating artery (ACOM). Normal bilateral A2 segments of the anterior cerebral arteries. Normal right M1 and M2 segments of the middle cerebral arteries, with a normal M1 bifurcation. Normal left M1 and M2 segments of the middle cerebral arteries, with a normal M1 bifurcation. No visible right posterior communicating artery (PCOM). No visible left posterior communicating artery (PCOM). Normal bilateral vertebral arteries. Normal basilar artery with a normal basilar bifurcation. The visualized bilateral superior cerebellar (SCA) arteries are normal. Normal bilateral P1, P2 and visualized P3 segments of the posterior cerebral arteries. There is no demonstrated aneurysm of the [place]. There is no demonstrated abnormality of the visualized brain. AORTIC ARCH: Normal visualized aortic arch. Normal origins of the brachiocephalic, left common carotid, and left subclavian arteries. RIGHT CAROTID ARTERIES: Normal right common carotid artery (CCA). Nonocclusive calcified plaques in the right carotid bulb. Widely patent origin of the right internal carotid (ICA) artery without a hemodynamically significant stenosis. Nonocclusive calcified plaques in the proximal internal carotid artery. Normal remaining visualized cervical portion of the right internal carotid artery. Normal origin of the right external carotid artery (ECA). LEFT CAROTID ARTERIES: Normal left common carotid artery (CCA). Normal left carotid bulb. Normal origin of the left internal carotid (ICA) artery without a hemodynamically significant stenosis. Normal visualized cervical portion of the left internal carotid artery. Normal origin of the left external carotid artery (ECA). VERTEBRAL ARTERIES: Normal bilateral vertebral arteries. CT/STROKE CTA Head AND Neck W/Con IMPRESSION: 1. No CTA evidence of intracranial aneurysm, dissection or vaso-occlusive disease of the anterior and posterior intracranial circulation. 2. Nonocclusive calcified plaques in the right carotid bulb and right proximal internal carotid artery. 3. No CTA evidence of carotid or vertebral artery dissection. 4. Widely patent bilateral common carotid arteries, bilateral common carotid bifurcations, bilateral internal and external carotid arteries and codominant vertebral arteries. 5. Normal aortic arch and origins of the great vessels. N.B. : The above Results were Read Back by Vargas Gabriel MD to Dr. Isai Hook MD, and understanding confirmed on 07/14/2022 12:39:10 (ET). Electronically Signed: Vargas Gabriel MD at 12:43 EDT ,
--- NOTE | 2022-07-14 11:06 | EDS_ITS ---
HPI History of Present Illness Chief Complaint: Dizziness Detail of Chief Complaint: Headache that is severe with nausea and l ightheadedness Informant: patient Onset/Context/Timing Onset: Month(s) Context: Sudden Timing: Intermittent and Waxes and wanes Location: Top of her head described as piercing Current Severity: Moderate Maximum Severity: Severe Worsened by: Nothing specific Relieved by: Nothing Associated Symptoms/Injury Associated Symptoms: Positive for Nausea; Negative for Fever, Vomiting, Sore Throat, Sinus Pressure, Numbness, Tingling, Preceding Aura, Visual Changes, Blurred Vision, Photophobia or Visual Loss Injury - HARRIS: Negative for Direct Trauma Narrative Narrative: Patient is a 72-year-old woman with history of depression and reflux who presents because of abrupt onset of headache that started this morning with nausea and neck pain. She does report neck stiffness. First headache occurred approximately 1 month ago. She was seen at her doctor's office and had an outpatient CAT scan without contrast that was negative. Also had studies of her neck which were negative, Doppler. She presents now because of severe headache with nausea. She denies double vision, blurred vision loss of vision. Denies ringing in ears or decreased hearing. She does complain of neck pain and neck stiffness. She denies cardiac or respiratory symptoms. She denies vomiting or diarrhea. She denies rash. There is no history of trauma. There is no family history of subarachnoid hemorrhage. Patient denies history of hypertension. She denies trouble with speech or swallowing. She denies loss of use of upper or lower extremities. She denies problems with balance or coordination. Prior similar symptoms: Yes Recent Illness/Hospitalization: Yes [facility] Medical History Depression Fibromyalgia GERD (gastroesophageal reflux disease) Home Medications duloxetine 20 mg capsule,delayed release 60 mg PO DAILY 08/22/18 [History Last Taken 04/08/21 09:00] omeprazole 20 mg delayed release,disintegrating tablet 20 mg PO BID reflux 11/08/18 [History Last Taken 04/08/21 17:00] amitriptyline 25 mg tablet 25 mg PO QHS sleep 04/09/21 [History Last Taken 04/08/21 21:00] metoclopramide HCl 10 mg tablet 10 mg PO UD PRN Headache #20 tabs 07/14/22 [Rx Last Taken Unknown] sertraline 25 mg tablet 25 mg PO DAILY 07/14/22 [History Last Taken Unknown] Allergy/AdvReac Type Severity Reaction Status Date / Time hydrocodone [From Vicodin] Allergy Chest Verified 07/14/22 10:44 tightness morphine Allergy Shortness Verified 07/14/22 10:44 of breath CHOLESTERAL MEDICATION AdvReac Other Uncoded 07/14/22 10:44 Social History (Updated 07/14/22 @ 11:[address] Isai Hook MD) household members: spouse Smoking Status: Never smoker substance use type: does not use ROS ROS ED Constitutional Constitutional ED: Denies chills, fever(s), subjective, sweats or weight loss Eyes Eyes: Denies blurry vision, change in vision or diplopia ENT ENT ED: Denies ear pain, rhinorrhea or sore throat Cardiovascular Cardiovascular: Denies chest pain, palpitations or racing heartbeat Respiratory/Chest Respiratory/Chest: Denies cough, dyspnea or dyspnea on exertion Gastrointestinal Gastrointestinal: Reports nausea; Denies abdominal pain, constipation, diarrhea, melena or vomiting Genitourinary Genitourinary ED: Denies dysuria, hematuria or urinary frequency Musculoskeletal Musculoskeletal: Reports neck pain; Denies arthralgias, back pain or myalgias Integumentary Denies abscess, Abrasions or rash Neurologic Neurologic: Reports headache(s); Denies paresthesias or weakness Psychiatric Psychiatric: Reports anxiety and depression Endocrine Endocrinology: Denies polydipsia, polyphagia or polyuria Hematologic/Lymphatic Hematologic/Lymphatic: Denies easy bleeding or easy bruising EXAM Physical Exam Const Vital Signs: 07/14/22 10:42 07/14/22 11:08 07/14/22 12:29 Temperature 96.9 F L Temperature Source Temporal Pulse Rate 69 64 Respiratory Rate 18 18 Respiratory Effort Normal Non-Labored Respiratory Pattern Normal Blood Pressure 146/82 H 155/80 H Blood Pressure Mean 103 105 Pulse Ox 99 98 Oxygen Delivery Method Room Air Room Air 07/14/22 13:47 Temperature Temperature Source Pulse Rate Respiratory Rate 18 Respiratory Effort Respiratory Pattern Blood Pressure Blood Pressure Mean Pulse Ox Oxygen Delivery Method Positive well nourished, well developed and obese Constitutional Narrative: Patient appears pale. She is quiet. General Appearance ED: well developed; Negative for NAD or pallor Nutritional Appearance: obese HEENT Reports normocephalic, TM's clear and moist mucous membranes HEENT Narrative: There is no tenderness over the right or left temporal region. Nares patent. There is no discharge. Uvula is midline. There is no deviation tongue or protrusion. There is no erythema or exudate of the posterior pharynx. There is no drainage noted. She does report discomfort with flexion of her neck. She hesitates and did not touch her chin to her chest. atraumatic; Negative for temporal artery tenderness or vesicular rash Face and Sinus: Negative for sinus tenderness Tympanic Membrane ED: Yes TM's clear Eyes PERRL and EOMs intact bilaterally General Eye ED: Negative for pale conjunctiva or scleral icterus Neck no lymphadenopathy, supple, No no meningeal signs and no JVD Resp normal respiratory effort and clear to auscultation bilaterally Cardio regular rate, regular rhythm, S1 normal heart sound, S2 normal heart sound and no murmurs GI non-tender and non-distended Auscultation: normoactive bowel sounds Palpation: soft Back/Spine no CVA tenderness Cervical Spine: Negative for cervical spine tenderness Thoracic Spine / Upper Back: Negative for thoracic spinal tenderness Lumbar Spine / Lower Back: Negative for lumbar spinal tenderness Extremity normal to inspection, full ROM and normal capillary refill Neuro oriented x3, CN's II-XII intact bilaterally and no sensory deficits noted Felicity Coma Scale: document GCS findings Spontaneous Obeys Commands Oriented 15 Sensorium / Orientation: awake, alert, oriented to person, oriented to place and oriented to time Coordination / Balance: [id number] test normal Speech: speech normal Motor Exam: strength 5/5 throughout Psych mental status grossly normal Skin General Skin Exam: Negative for jaundice or pallor Lesions: no lesions Rashes: no rashes NIHSS NIHSS Initial: 1a Level of Consciousness: 0 1b LOC Questions (Score 2 if aphasic/stupor): 0 1c LOC Commands (Only score 1st attempt): 0 2 Best Gaze (If aphasic, use reflexive mvmts.): 0 3 Visual: 0 4 Facial Palsy: 0 5 Motor Arm Right (UN = amputation/fusion): 0 5 Motor Arm Left: 0 6 Motor Leg Right: 0 6 Motor Leg Left: 0 7 Limb ataxia (Only + if out of proportion): 0 8 Sensory (Aphasia/stupor=0 or 1, coma=2): 0 9 Best Language: 0 10 Dysarthria (mute, coma=2, intubated=UN): 0 11 Extinction and Inattention (only scored if +): 0 Total Score: 0 MDM MDM MDM Narrative Medical decision making narrative: With severe headache nausea neck pain and stiffness need to entertain possibility of subarachnoid hemorrhage. Versus sphenoid sinusitis versus intracranial bleed. Since patient had a recent CAT scan CT of the head without contrast was not ordered. Furthermore since patient symptoms started proxy 1 month ago false-negative rate for subarachnoid hemorrhage is greater than 85%. Therefore, CTA of the head neck was obtained to assess for aneurysm as well as hemorrhage. I was contacted by radiologist needs states there is no evidence of aneurysm. He agreed with CTA in light of my concerns. Since there is no abnormality noted and renal function is normal she was treated with IV Toradol, Reglan and Benadryl for her headache. Suspect this represents an atypical migraine headache. Patient was reassessed at 1341. Patient reports ports marked improvement. Her blood pressure is improved markedly as well. There was discussion starting antihypertensive however with her pressure 100/76 there is no need to start any hypertensive medication. Suspect the blood pressure was elevated because of pain. Lab Data Labs: Laboratory Results - last 24 hr 07/14/22 07/14/22 07/14/22 11:21 11:21 11:21 WBC 5.7 RBC 4.90 Hgb 15.0 Hct 44.2 MCV 90.2 MCH 30.6 MCHC 33.9 RDW Std Deviation 44.6 H RDW Coeff of [place]uv[place] 13.4 Plt Count 263 MPV 10.0 Immature Gran % (Auto) 0.500 Neut % (Auto) 64.8 Lymph % (Auto) 24.9 [place] % (Auto) 8.2 Eos % (Auto) 0.9 Baso % (Auto) 0.7 Absolute Neuts (auto) 3.7 Absolute Lymphs (auto) 1.42 Nucleated RBC % 0 PT 11.9 INR 0.9 APTT 26.1 Sodium 143 Potassium 3.8 Chloride 105 Carbon Dioxide 30.0 Anion Gap 8 BUN 21 H Creatinine 0.77 Estim Creat Clear Calc 40.22 Est GFR (MDRD) Af Amer 95 Est GFR (MDRD) Non-Af 79 BUN/Creatinine Ratio 27.4 H Glucose 119 H Calcium 9.3 Radiography Diagnostic Testing: Clinical Impression(s) from Imaging Studies Head/Neck CTA 07/14/22 10:57 IMPRESSION: 1. No CTA evidence of intracranial aneurysm, dissection or vaso-occlusive disease of the anterior and posterior intracranial circulation. 2. Nonocclusive calcified plaques in the right carotid bulb and right proximal internal carotid artery. 3. No CTA evidence of carotid or vertebral artery dissection. 4. Widely patent bilateral common carotid arteries, bilateral common carotid bifurcations, bilateral internal and external carotid arteries and codominant vertebral arteries. 5. Normal aortic arch and origins of the great vessels. N.B. : The above Results were Read Back by Vargas Gabriel MD to Dr. Isai Hook MD, and understanding confirmed on 07/14/2022 12:39:10 (ET). Electronically Signed: Vargas Gabriel MD at 12:43 EDT , ADDENDUM: 07/14/22 1249 IMPRESSION: 1. No CTA evidence of intracranial aneurysm, dissection or vaso-occlusive disease of the anterior and posterior intracranial circulation. 2. Nonocclusive calcified plaques in the right carotid bulb and right proximal internal carotid artery. 3. No CTA evidence of carotid or vertebral artery dissection. 4. Widely patent bilateral common carotid arteries, bilateral common carotid bifurcations, bilateral internal and external carotid arteries and codominant vertebral arteries. 5. Normal aortic arch and origins of the great vessels. N.B. : The above Results were Read Back by Vargas Gabriel MD to Dr. Isai Hook MD, and understanding confirmed on 07/14/2022 12:39:10 (ET). Electronically Signed: Vargas Gabriel MD at 12:43 EDT , Discharge Plan Triage Chief Complaint: Dizziness ED Provider: Isai Hook Dx/Rx/DC Orders Clinical Impression: Headache, primary thunderclap, Intractable migraine without aura and with status migrainosus Prescriptions: New metoclopramide HCl [metoclopramide HCl] 10 mg tablet 10 mg PO UD PRN (Reason: Headache) Qty: 20 0RF Rx Instructions: With onset of headache No Action duloxetine 20 MG capsule 60 mg PO DAILY omeprazole 20 MG tablet,disintegrat, delay rel 20 mg PO BID amitriptyline 25 mg tablet 25 mg PO QHS sertraline 25 mg tablet 25 mg PO DAILY Label Comments: take 1/2 tablet daily for 1 (ONE) week; then increase to 1 (ONE) tablet daily Primary Care Provider: Gina Ybarra NP Referrals: Casey Phillips NP, [employer] [Non-Staff] - 5-7 Days Activity Restrictions/Additional Instructions: Take a Benadryl capsule with the Reglan at the onset of your headache. If there is no improvement after a couple hours contact your doctor Disposition Disposition: Home, Self Care Discharge Date/Time: 07/14/22 13:56
[2022-07-14] MEDS: Ondansetron 4 MG/2 ML Vial IV (11:27)
[2022-07-14 11:28] LABS: Absolute Lymphocyte Count 1.42 X10^3/uL (0.83-4.51); Absolute Neutrophil Count 3.7 X10^3/uL (2.0-7.7); Basophil# 0.04 X10^3/uL; Basophil% 0.7 % (0-1); Eosinophil# 0.05 X10^3/uL; Eosinophils% 0.9 % (0-5); Hematocrit 44.2 % (37-47); Lymphocyte # 1.42 X10^3/ul (0.83-4.51); Lymphocyte % 24.9 % (19-41); Mean Corp Hgb Conc 33.9 g/dL (32-36); Mean Corpuscular Hgb 30.6 pg (27.0-32.0); Mean Corpuscular Volume 90.2 fL (81-99); Monocyte# 0.47 X10^3/uL; Monocyte% 8.2 % (0-10); NRBC Flagged by Analyzer 0 % (0-5); Neutrophil % 64.8 % (47-70); Platelet Count 263 K/mm3 (150-450); RBC Distribution Width CV 13.4 % (11.6-14.6); RBC Distribution Width SD 44.6 fl (35.1-43.9); White Blood Count 5.7 K/mm3 (4.4-11.0)
[2022-07-14 11:40] LABS: International Normalized Ratio 0.9; Partial Thromboplast Time 26.1 Seconds (24.1-36.2); Prothrombin Time (Protime)PT. 11.9 SECONDS (11.7-14.9)
[2022-07-14 11:42] LABS: Anion Gap 8 (5-15); BUN 21 mg/dL (7-18); BUN/Creat Ratio 27.4 RATIO (10-20); Calcium,Total 9.3 mg/dL (8.5-10.1); Chloride 105 mmol/L (98-107); Creatinine, Serum 0.77 mg/dL (0.55-1.02); EST Glomerular Filtration Rate 79 mL/min (>60); Est Glom Filt Rate - Afr Amer 95 mL/min (>60); Estimated Creatinine Clearance 40.22 ml/min; Glucose 119 mg/dL (74-106); Potassium 3.8 mmol/L (3.5-5.1); Sodium Level 143 mmol/L (136-145)
[2022-07-14 12:29] VITALS: BP 155/80; PULSE 64; RESP 18; O2SAT 98
[2022-07-14] MEDS: Ketorolac 15 MG/ML Vial IV (12:44)
[2022-07-14] MEDS: DiphenhydrAMINE 50 MG/ML Syringe 25 MG IV (12:44)
[2022-07-14] MEDS: Metoclopramide 10 MG/2 ML Vial IV (12:45)
[2022-07-14 13:47] VITALS: RESP 18
== END 2022-07-14 13:56 | disposition home or self-care (01) ==
PROVIDERS: Emergency Provider Emergency Medicine; PCP Registered Nurse; Visit Provider Emergency Medicine
DX: G44.53 Primary thunderclap headache (principal); G43.911 Migraine, unspecified, intractable, with status migrainosus; M79.7 Fibromyalgia; K21.9 Gastro-esophageal reflux disease without esophagitis; E66.9 Obesity, unspecified; Z79.899 Other long term (current) drug therapy; Z68.37 Body mass index [BMI] 37.0-37.9, adult
CPT/HCPCS: 70496; 70498; 80048; 85025; 85610; 85730; 96374; 96375; 99284; J7030; Q9967; A4216; J2405

== ENCOUNTER 2023-07-05 09:30 | Emergency (ER) | payer MEDICARE, SELFPAY ==
[2023-07-05 09:31] VITALS: BP 148/88; PULSE 79; RESP 15; TEMP 36.4; O2SAT 97; BMI 36.8
--- NOTE | 2023-07-05 09:43 | EX.ED.DYSGE1 ---
HPI History of Present Illness Chief Complaint: Headache PFSH PFS Medical History Depression Fibromyalgia GERD (gastroesophageal reflux disease) Home Medications duloxetine 20 mg capsule,delayed release 60 mg PO DAILY 08/22/18 [History Last Taken 04/08/21 09:00] omeprazole 20 mg delayed release,disintegrating tablet 20 mg PO BID reflux 11/08/18 [History Last Taken 04/08/21 17:00] amitriptyline 25 mg tablet 25 mg PO QHS sleep 04/09/21 [History Last Taken 04/08/21 21:00] metoclopramide HCl 10 mg tablet 10 mg PO UD PRN Headache #20 tabs 07/14/22 [Rx Last Taken Unknown] sertraline 25 mg tablet 25 mg PO DAILY 07/14/22 [History Last Taken Unknown] metoclopramide HCl 5 mg tablet (Reglan) 5 mg PO Q8H PRN PRN nausea and vomiting 7 days #20 tabs 07/05/23 [Rx Last Taken Unknown] Allergy/AdvReac Type Severity Reaction Status Date / Time hydrocodone [From Vicodin] Allergy Chest Verified 07/05/23 09:33 tightness morphine Allergy Shortness Verified 07/05/23 09:33 of breath [id number] Reductase Allergy muscle pain Verified 07/05/23 09:33 Inhibitor Social History (Updated 07/14/22 @ 11:[address] Isai Hook MD) household members: spouse Smoking Status: Never smoker substance use type: does not use EXAM Physical Exam Const Vital Signs: 07/05/23 09:31 Temperature 97.5 F L Temperature Source Temporal Pulse Rate 79 Respiratory Rate 15 Blood Pressure 148/88 H Blood Pressure Mean 108 Pulse Ox 97 Oxygen Delivery Method Room Air MDM MDM MDM Narrative Medical decision making narrative: HISTORY OF PRESENT ILLNESS: 73-year-old female here with headache. Notes this began 1 day ago. HARRIS Is gradual in onset. States she was recently diagnosed with COVID approximate 3 weeks ago and has had fatigue and symptoms ever since. She thinks this may be related to long COVID. Patient denies sudden onset or thunderclap headache, denies maximal intensity within 1 minute, vomiting, neck pain or stiffness, changes in vision, fever, history malignancy, syncope, seizures. REVIEW OF SYSTEMS: Pertinent positives: HARRIS Pertinent negatives: fever PHYSICAL EXAM: Nursing triage notes reviewed, Vital signs reviewed Constitutional: please see mdm HENT: MMM, no temporal artery tenderness Eyes: Pupils equal round and reactive to light, Extraocular muscles intact Neck: No stridor, no JVD, full neck ROM, no carotid artery bruits Lungs: Clear to auscultation, No wheezing or rales. No increased work of breathing, no conversational dyspnea, no accessory muscle use, no nasal flaring. No respiratory distress noted Heart: Regular rate and rhythm, No murmurs, No rubs and No gallops, 2+ distal pulses (radial, femoral, posterior tibial) in all extremities Abdomen: Soft, there is no tenderness, rigidity, rebound or guarding, no obvious peritoneal signs, no palpable pulsatile abdominal masses, no auscultated abdominal bruit : No CVAT Extremities: No edema Neuro: Alert and oriented x3, neuro exam at baseline, cranial nerves II through XII are intact. No pain with extraocular muscle movement. There is negative test of skew. Normal speech. 5 of 5 strength in upper and lower extremities in flexion extension. Intact sensation to light touch in upper and lower extremity dermatomes. No truncal or extremity ataxia. No dysdiadochokinesia. Normal gait. 2+ reflexes. No meningeal signs. Negative Babinski. NIH of 0 Skin: No rash or lesions noted MEDICAL DECISION MAKING: Chief Complaint: Headache External records reviewed: Prior imaging studies reviewed: CTA of the head and neck from 07/14/2022 shows no evidence of aneurysm, dissection or vaso-occlusive disease of the anterior or posterior circulation Factors affecting care: GERD, Social determinants of health: none elderly Consults: none ALL IMAGES (IF OBTAINED) HAVE BEEN PERSONALLY REVIEWED AND INTERPRETED BY MYSELF. [facility] Narrative: Patient was hemodynamically stable, afebrile, nontoxic. Neuro exam intact. No evidence of carotid artery dissection or temporal neuritis on exam I considered the following differential diagnosis: Subarachnoid hemorrhage, epidural hematoma, ICH, meningitis, carotid artery dissection, primary headache (cluster, tension, migraine) Obtained a CT scan of the brain to rule out mass or bleed. Gave symptomatic headache treatments. CT scan was negative. Repeat neuro exam was nonfocal patient was discharged with Reglan. Strict return precautions were discussed. The patient and/or family, caregivers express understanding. The patient and/or family, caregivers agrees with the plan. Shared decision making: I will have a discussion with the patient and or visitors regarding risk/benefits of further testing or admission. They will be made aware of of the risk/benefits inherent in this decision they will be given the opportunity to voice understanding. Total critical care time today provided was at least 0 minutes. This excludes separately billable procedures. Critical care time (if documented) is secondary to the patient having high probability of clinically significant/life threatening deterioration in the patient's condition which required my urgent intervention. Impression: 1. Acute headache Dispo: Discharge Radiography Diagnostic Testing: Clinical Impression(s) from Imaging Studies Brain CT 07/05/23 10:08 IMPRESSION: Chronic involutional changes of the brain. Electronically Signed: Robbie Horne MD at 11:07 EDT , Discharge Plan Triage Chief Complaint: Headache ED Provider: Greg Perez Dx/Rx/DC Orders Clinical Impression: Headache Instructions: ED Headache Unspecified Prescriptions: New metoclopramide HCl [Reglan] 5 mg tablet 5 mg PO Q8H PRN PRN (Reason: nausea and vomiting) 7 Days Qty: 20 0RF No Action duloxetine 20 MG capsule 60 mg PO DAILY omeprazole 20 MG tablet,disintegrat, delay rel 20 mg PO BID amitriptyline 25 mg tablet 25 mg PO QHS sertraline 25 mg tablet 25 mg PO DAILY Patient Comments: take 1/2 tablet daily for 1 (ONE) week; then increase to 1 (ONE) tablet daily metoclopramide HCl [metoclopramide HCl] 10 mg tablet 10 mg PO UD PRN (Reason: Headache) Qty: 20 0RF Rx Instructions: With onset of headache Primary Care Provider: Gina Ybarra NP Referrals: Gina Ybarra NP, [employer] [Primary Care Provider] - Activity Restrictions/Additional Instructions: Thank you for trusting us with your care today! Please take Tylenol (2 pills, 650 mg), ibuprofen (2 pills, 400 mg) every 6 hours as needed for pain and fever control. Please return to the emergency department if your symptoms change or worsen. Specifically develop worsening headache, loss of vision, slurred speech, difficulty speaking, numbness weakness or loss sensation in your extremities. Please follow with your primary care physician for further outpatient evaluation and management. Disposition Disposition: Home, Self Care
--- NOTE | 2023-07-05 10:08 | CT_ITS ---
STUDY: CT BRAIN WITHOUT CONTRAST REASON FOR EXAM: Female, 73 years old. Acute headache RADIATION DOSAGE (If Supplied By Facility): CTDIvol = ( 44.99 ) mGy, DLP = ( 779.24 ) mGycm TECHNIQUE: Transaxial CT imaging of the brain was performed without administration of intravenous contrast material. Individualized dose optimization techniques were used for this CT. COMPARISON: No relevant priors. FINDINGS: Normal soft tissue structures. Normal calvarium. There is mild cerebral atrophy with widening of the extra-axial spaces and ventricular dilatation. Normal white matter tracts of the cerebral hemispheres. Normal basal ganglia and thalami. Normal brainstem. Normal cerebellum. There is no intracranial hemorrhage. There are no findings of an acute ischemic infarction. Normal visualized paranasal sinuses. CT/Brain/Head without Contrast IMPRESSION: Chronic involutional changes of the brain. Electronically Signed: Robbie Horne MD at 11:07 EDT ,
[2023-07-05] MEDS: Acetaminophen 325 MG Tablet PO (10:33)
[2023-07-05] MEDS: Metoclopramide 5 MG TABLET PO (10:33)
== END 2023-07-05 11:35 | disposition home or self-care (01) ==
PROVIDERS: Emergency Provider Emergency Medicine; PCP Registered Nurse; Visit Provider Emergency Medicine
DX: R51.9 Headache, unspecified (principal)
CPT/HCPCS: 70450; 99283